=== PATIENT | male | born 1950 | race Caucasian/White ===

== ENCOUNTER → 2023-07-15 07:05 | Outpatient (REF) | payer MEDICARE, SELFPAY ==
[2023-07-15] MEDS: LEXISCAN 0.400000000000000022 MG IV (09:25)
== END ==
LOC: RCS 07:05
PROVIDERS: ATTENDING PHYSICIAN Internal Medicine Cardiovascular Disease; FAMILY PHYSICIAN Student in an Organized Health Care Education/Training Program
DX: R06.02 Shortness of breath (principal)
CPT/HCPCS: 78452; 93017; A9500; J2785

== ENCOUNTER → 2023-07-17 14:37 | Outpatient (REF) | payer MEDICARE, SELFPAY | LOC: HWRCS 14:37 | PROVIDERS: ATTENDING PHYSICIAN Internal Medicine Cardiovascular Disease; FAMILY PHYSICIAN Student in an Organized Health Care Education/Training Program | DX: R07.9 Chest pain, unspecified (principal) | CPT/HCPCS: 93306 ==

== ENCOUNTER 2023-07-22 22:21 | Inpatient (IN) | payer MEDICARE, SELFPAY ==
[2023-07-22] VITALS (8 sets, daily range): BP systolic 96–109; BP diastolic 50–87; BMI 29.7; BMI 29.4
[2023-07-22 18:50] LABS: % Basophils 0.4 % (0-2); % Eosinophils 0.4 % (0-6); % Immature Granulocytes 0.1 % (0-0.5); % Lymphocytes 5.2 % (20.5-51.1); % Monocytes 8.9 % (1.7-9.3); Absolute Lymphocytes 0.4 10^3/uL (1.2-3.4); Absolute Monocytes 0.6 10^3/uL (0.1-0.6); Absolute Neutrophils 5.8 10^3/uL (1.4-6.5); Hematocrit 35.7 % (39.0-52.0); Hemoglobin 12.7 g/dL (13.0-18.0); Mean Corp Hgb Conc. 35.6 g/dL (33.0-37.0); Mean Corpuscular Hgb 31.6 pg (27.0-31.0); Mean Corpuscular Volume 88.8 fL (80.0-94.0); Mean Platelet Volume 11.2 fL (7.4-10.4); Nucleated Red Blood Cells % 0 % (-); Platelet Count 187 10^3/uL (130-400); Red Blood Cell Count 4.02 10^6/uL (4.70-6.10); Red Cell Dist. Width 13.6 % (11.5-14.5); White Blood Cell Count 6.9 10^3/uL (4.8-10.8)
[2023-07-22 19:06] LABS: ALT (SGPT) 33 U/L (0-50); AST (SGOT) 45 U/L (17-59); Albumin 3.7 g/dl (3.5-5.0); Alkaline Phosphatase 49 U/L (38-126); Blood Urea Nitrogen 30 mg/dl (9-20); COVID-19 Antigen Negative (Negative); Calcium 8.6 mg/dl (8.4-10.2); Carbon Dioxide 25 mmol/L (22-30); Chloride 103 mmol/L (98-107); Estimated Creatinine Clearance 46 ml/min; Glucose 230 mg/dl (70-99); Potassium 3.8 mmol/L (3.5-5.1); Sodium 134 mmol/L (135-145); Total Bilirubin 0.8 mg/dl (0.2-1.3); eGFR 48.85
[2023-07-22 19:08] LABS: Lactic Acid 2.3 mmol/L (0.7-2.0)
[2023-07-22 19:16] LABS: Troponin I 0.157 ng/ml
[2023-07-22] MEDS: NSS 500 IV (19:50)
--- NOTE | 2023-07-22 19:56 | PHANOTE ---
07/22/2023, med rec tech, spoke to pt. to obtain their med. history; pt. states to grow his own marijuana and will smoke the flower form ('half a joint') HSPRN for sleep/anxiety/stress but he does not have a medical marijuana card.
--- NOTE | 2023-07-22 19:56 | ED.GENMED ---
History of Present Illness
General
Chief Complaint: Breathing Problem
Source: patient
Exam Limitations: none
Time Seen by Provider: 07/22/23 18:27
Nursing documentation reviewed up to this point in time: agreed with
Travel History
Have you had any contact with someone who has COVID-19?: No
Do you have any symptoms of coronavirus? Fever > 100 degrees, chills, cough, shortness of breath, sore throat, loss of taste or smell, muscle aches, or headache?: No
History of Present Illness
History of Present Illness:
Patient presents to ED secondary to persistent cough, fever, chills, body ache, shortness of breath, and decreased appetite over the past 4 to 5 days. Patient states that there are multiple for members currently with similar symptoms. Denies chest
pain. Denies abdominal pain. Denies vomiting or diarrhea. Patient reports lightheadedness intermittently. Per paramedics, patient was found to be hypoxic in respiratory distress with initial pulse ox 85%. Patient was placed on supplemental
oxygen on the way to the hospital.
Past History
Past History
ED Past Medical History: CAD, HTN, NIDDM and Valvular disease
ED Past Surgical History: Cardiac ([place] valve replacement, CABG)
Social History
Tobacco: Non-smoker
Alcohol: Occasional
Drug: None
Employment: Employed
Family History
Family History: Other (Father with COPD, mother with dementia)
Review of Systems
Review of Systems
Allergies reviewed?: Yes
All Other Systems: ROS reviewed and negative except as documented in HPI and ROS
Constitutional: Reports fever and chills
EENT: Reports no symptoms
Respiratory: Reports cough and trouble breathing
Cardiac: Reports no symptoms
ABD/GI: Reports no symptoms
: Reports no symptoms
Musculoskeletal: Reports no symptoms
Neurological: Reports dizzy and weakness; Denies headache
Phy Exam
Physical Exam
Physical Exam:
Physical Exam
General: mild distress, not acutely ill. afebrile
Head: nc/at. eomi
Neck: supple. normal range of motion.
Heart: s1/s2 regular rate and rhythm, no murmur. equal radial pulses.
Lungs: mild respiratory distress. diminished breath sounds bilaterally
Abdomen: normal bowel sounds. not tender.
Neuro: alert and oriented. no focal neurological deficits
Skin: no rash
Psychiatric: well kept. interactive and cooperative
Extremities: no edema. no calf tenderness.
Scores
Heart Failure Risk
Heart Failure Risk Score: Not Applicable
Course
Orders/Labs/Results
Orders:
Orders
07/22/23 18:30
Electrocardiogram (*1) Urgent
Reason for Study: Shortness of Breath
07/22/23 18:31
EKG- Treatment ONCE
07/22/23 18:34
CXR2 [CR Chest - 2 Views ] Urgent
Comment:
Reason For Exam: sob
07/22/23 18:36
COVID-19 Antigen Urgent
Source: Nasal Swab
Complete Blood Count/With Diff Urgent
Comprehensive Metabolic Panel Urgent
Lactate Level [Lactic Acid] Urgent
Troponin I Urgent
Blood Culture Urgent
WINTER Source: Blood/Venous
Specimen Description:
07/22/23 18:39
Influenza A+B Rapid Molecular Urgent
WINTER Source: Nasal Swab
Specimen Description:
07/22/23 19:14
0.9% Sodium Chloride 500 ml [Nss] 500 ml IV BOLUS
07/22/23 21:43
Admit/Transfer Patient As Directed
Co-Sign Provider:
Level of Care: Inpatient admission
Assign to:: Telemetry
Physician / Group: Gabriela Soto
Diagnosis: influena, elevated troponion
Reason for Telemetry: Chest Pain syndromes
Date to Stop Telemetry: 07/24/23
Time to Stop Telemetry: 11:00
Reason for Hospitalization: influena, elevated troponion
Expected length of stay greater than two midnights?: Yes
ELOS- Estimated Length of Stay in days: 3
I certify the patient meets the requirements for IP care: Yes
Ipratropium/Albuterol Sulfate [Duoneb] 3 ml INH R NOW ONE
07/22/23 21:45
Code Status As Directed
Resuscitation Status: Full Code
07/22/23 21:46
Oseltamivir Phosphate [Tamiflu] 30 mg PO NOW STA
07/22/23 22:13
INR [Prothrombin Time] Urgent
Procalcitonin Urgent
PCT Algorithmm Indication: Respiratory
07/24/23 11:00
DC Protocol for Telemetry ONCE
Abnormal Lab Results
07/22/23
18:36
RBC 4.02 L 10^6/uL
(4.70-6.10)
Hgb 12.7 L g/dL
(13.0-18.0)
Hct 35.7 L %
(39.0-52.0)
MCH 31.6 H pg
(27.0-31.0)
MPV 11.2 H fL
(7.4-10.4)
Absolute Lymphs (auto) 0.4 L 10^3/uL
(1.2-3.4)
Neutrophils % 85.0 H %
(42.2-75.2)
Lymphocytes % 5.2 L %
(20.5-51.1)
Sodium 134 L mmol/L
(135-145)
BUN 30 H mg/dl
(9-20)
Creatinine 1.5 H mg/dL
(0.7-1.3)
Glucose 230 H mg/dl
(70-99)
Lactic Acid 2.3 H mmol/L
(0.7-2.0)
Troponin I 0.157 H* ng/ml
Total Protein 6.0 L g/dl
(6.3-8.2)
07/22/23 18:36
07/22/23 18:36
Vital Signs
Initial and Last Documented VS:
Initial Vital Signs
Temp Pulse Resp Pulse Ox
99.6 F 93 20 95
07/22/23 18:21 07/22/23 18:21 07/22/23 18:21 07/22/23 18:21
Last Documented Vital Signs
Temp Pulse Resp BP Pulse Ox
99.6 F 81 18 104/87 90
07/22/23 18:21 07/22/23 22:00 07/22/23 22:00 07/22/23 22:00 07/22/23 22:00
MDM/Problems Addressed
MDM/Problems Addressed:
Patient's presenting symptoms, including hypoxia and dehydration, likely secondary to influenza. As patient is requiring supplemental oxygen to maintain his pulse ox greater than 90%, patient will be admitted for further eval and treatment.
CXR report reviewed - likely viral pneumonia. Awaiting procalcitonin. Will withhold abx at this time.
Blood cx pending
*EKG
Interpreted by ED Provider?: Yes
EKG Intrepretation Date: 07/22/23
Heart Rate: 92
Rate: normal
Rhythm: sinus
Cameron: normal axis
QRS Pattern: left bundle branch block
*Critical Care Note
Total Time (30-74mins, 75-104mins- exclusive of procedures): Not Applicable
ED Attending Note
-
Portions of this chart may have been created with voice recognition software.� Occasional wrong word or��sound alike� substitutions may have occurred due to the inherent limitations of voice recognition software.
Discharge Plan
Departure
Patient Disposition: Admit
Date of Disposition: 07/22/23
Time of Disposition: 20:09
Presentation/result/management discussed w/ accepting MD/DO: Hospitalist
Covid-19: Negative COVID-19
Discharge Problem:
Influenza, Hypoxia, Dehydration
Interventions
Interventions:
*Risk Screen - Suicide Last Done: 07/22/23 18:21
*General Assessment Last Done: 07/22/23 18:21
*Neglect/Abuse Screening Last Done: 07/22/23 18:21
*ED COVID-19 Vaccine History Last Done: 07/22/23 18:21
ED- Cardiac Assessment Last Done: 07/22/23 18:44
ED- Pulmonary Assessment Last Done: 07/22/23 18:44
--- NOTE | 2023-07-22 21:13 | HPS.HSE ---
Addendum entered and electronically signed by Gabriela Soto MD 07/23/23 02:43:
patient with rising Troponin up to 16.2. He recently had a positive stress test - results below and plan was to follow up at [place]. Cannot currently start heparin given elevated INR. He is on aspirin. EKG with known left bundle.
Keep NPO
Cardiology consulted
trend INR
patient currently sleeping and chest pain free
CONCLUSION:
1. Lexiscan nuclear stress test reveals a large in size,
moderate in severity, partially reversible mid to distal
anterior, distal anteroseptal and apical perfusion
defect.� There is also a moderate in size, moderate in
severity basal to distal inferoseptal and inferior
perfusion defect.
2. The left ventricle is dilated with global hypokinesis and
moderate distal anteroseptal hypokinesis.
3. LVEF by gated SPECT 44%.
4. Overall, high risk stress test.
Original Note:
Family Physician
-
Family Physician: Asim Cr,
Chief Complaint
-
shortness of breath
History of Present Illness
Mr. Arden Garzon is a 72 yo man with hx aortic valve replacement x 3 (most recent in 2020 at [place]), atrial fibrillation/flutter on coumadin, HTN, CVA 2020, CAD s/p CABG 2017, HTN, IDDM who presents to the ER with cough, fever/chills and body aches
x 1-2 days. Today he felt chills and increasingly SOB, EMS was called and he was found to have initial pulse ox 85% and was placed on supplemental oxygen on way to hospital.
Patient lives with granddaughter and states entire family has had URI symptoms. He felt fatigue over the weekend but developed productive cough and shortness of breath yesterday. + chills today. He has had decreased appetite. No
nausea/vomiting/diarrhea. No LE swelling. He weighs himself every day and has not gained weight.
Medical History
Past Medical History
Past Medical History: Reports CAD, CVA, HTN, IDDM and Valvular Disease
Additional Past Medical History:
aortic valve replacement x 3, most recent in 2020 at [place], atrial fibrillation/flutter on coumadin, HTN, CVA 2020, CAD s/p CABG 2018, HTN, IDDMI, diverticulitis
Past Surgical History: Reports Cardiac
Additional Past Surgical History:
CABG, aortic valve replacement x 3
Social History
Tobacco: Non-smoker
Alcohol: Occasional (reports prior heavy drinking a few years ago )
Drug: Marijuana (daily )
Family History
Family History: Not pertinent
Allergies / Home Medications
Allergies reflects when Allergies were last updated in [facility].
Home Medications with original date entered in [facility]
Allergy/Medication List:
Allergies
Allergy/AdvReac Type Severity Reaction Status Date / Time
No Known Allergies Allergy Verified 07/08/22 11:29
Home Medications
furosemide 20 mg tablet 20 mg PO DAILY Fluid retention/Swelling 07/03/20
cetirizine 10 mg tablet (Zyrtec) 10 mg PO DAILY Allergies 12/28/20
fenofibrate nanocrystallized 145 mg tablet 145 mg PO DAILY High cholesterol 12/28/20
fluoxetine 20 mg capsule 20 mg PO DAILY Depression 06/29/22
albuterol sulfate 90 mcg/actuation aerosol inhaler 2 puff inhalation R Q4HPRN PRN SOB 07/08/22
furosemide 40 mg tablet 40 mg PO DAILY 07/08/22
insulin lispro 100 unit/mL subcutaneous pen (Humalog KwikPen (U-100) Insulin) 0 sliding scale dose SC DIRECTED 07/08/22
insulin lispro 100 unit/mL subcutaneous pen (Humalog KwikPen (U-100) Insulin) 10 unit SC DAILY 07/08/22
aspirin 81 mg tablet,delayed release 81 mg PO DAILY 07/22/23
atorvastatin 80 mg tablet 80 mg PO DAILY 07/22/23
fluoxetine 40 mg capsule 40 mg PO DAILY 07/22/23
ibuprofen 200 mg capsule (Advil Liqui-Gel) 200 mg PO BIDPRN PRN mild pain 07/22/23
insulin glargine 100 unit/mL (3 mL) subcutaneous pen (Lantus Solostar U-100 Insulin) 15 unit SC HS 07/22/23
magnesium citrate 125 mg capsule 250 mg PO Q48H@0800 07/22/23
metoprolol succinate 25 mg tablet,extended release 24 hr 25 mg PO DAILY 07/22/23
sennosides 8.6 mg tablet (Senokot) 17.2 mg PO DAILY 07/22/23
warfarin 1 mg tablet 1 mg PO DAILY 07/22/23
warfarin 2 mg tablet 2 mg PO DAILY 07/22/23
Review of Systems
-
History Source: Patient
A 12 point ROS was completed and negative except as noted: Yes
Physical Exam
Vital Signs
Vital Signs
Temp Pulse Resp BP Pulse Ox
99.6 F 83 20 104/62 96
07/22/23 18:21 07/22/23 20:06 07/22/23 20:06 07/22/23 20:06 07/22/23 20:06
Physical Exam
General: No Apparent Distress
HEENT: PERRLA
Respiratory: Other (cough with deep inspiration and end expiratory wheeze)
Cardiac: S1/S2 and Regular Rhythm
GI: Soft and Non Tender
Musculoskeletal: No Edema
Skin: Warm and Dry; No Rash
Neuro: AO x 3
Psych: Calm
Laboratory Results
-
07/22/23 18:36
07/22/23 18:36
Laboratory Results
Lactic Acid 2.3 mmol/L (0.7-2.0) H 07/22/23 18:36
Total Bilirubin 0.8 mg/dl (0.2-1.3) 07/22/23 18:36
AST 45 U/L (17-59) 07/22/23 18:36
ALT 33 U/L (0-50) 07/22/23 18:36
Alkaline Phosphatase 49 U/L (38-126) 07/22/23 18:36
Troponin I 0.157 ng/ml H* 07/22/23 18:36
Data Reviewed
-
Diagnostic Radiology: Report Reviewed by me
Lab Data: Labs Reviewed by me
Impression/Plan
-
Mr. Arden Garzon is a 72 yo man with hx aortic valve replacement x 3 (most recent in 2020 at [place]), atrial fibrillation/flutter on coumadin, HTN, CVA 2020, CAD s/p CABG 2017, IDDM who presents to the ER with cough, fever/chills and body aches x
4-5 days. Today he felt increasingly SOB, EMS was called and he was found to have initial pulse ox 85% and was placed on supplemental oxygen on way to hospital.
Triage VS: T 99.9, P 93, RR 20, SpO2 95%
Labs: WBC 6.9, Hg 12.7, PLT 187, Na 134, K+ 3.8, BUN 30, Cr 1.5, glucose 230, lactate 2.3, Trop 0.157
CXR: right middle lobe PNA (my read)
MAR: 1L IVF
TTE 07/17/23
CONCLUSIONS
�Normal left ventricular chamber size with normal left ventricular systolic
�function; left ventricular ejection fraction is 55-60% by modified Pimentel's
�method. Abnormal (paradoxical) septal motion consistent with left bundle branch
�block. Mild concentric left ventricular hypertrophy.� Stage I diastolic
�dysfunction suggestive of abnormal relaxation.
�Thickened mitral valve leaflets with mitral annular calcification and moderate
�mitral regurgitation.
�Moderately dilated left atrium.
�Well-seated bioprosthetic aortic valve replacement with restricted leaflet
�motion. Peak and mean gradients are 63 and 39 mmHg, respectively. There is
�likely at least moderate bioprosthetic dysfunction. Mild aortic regurgitation.
�Since echocardiogram 06/30/2022 which was reviewed there is now at least
�moderate bioprosthetic aortic valve dysfunction.� Mean pressure is increased
�from 7 mmHg to 39 mmHg.
�
�Indications:
�Shortness of breath, Aortic valve replacement, Chest pain, unspecified,
�Atherosclerotic heart disease of [place] coronary artery without angina pectoris
Influenza
Elevated Lactate
Shortness of breath
-patient required O2 when seen by EMS; currently weaned off and sat'ing in mid-'s. He does not appear volume overloaded; RML PNA seen on my read CXR (superimposed bacterial?)
-obtain procal
-admit to telemetry
-monitor O2 sats
-start Tamiflu (renally adjusted)
-gentle IVF overnight
-standing duonebs
Non-NV Troponin Elevation
-patient denies chest pain (only discomfort with coughing). He had TTE last week and aortic gradients have increased
-trend Troponin overnight
-continue QUILL WINDER aspirin
-cardiology consult if climbs
CKD stage III
-creatinine seems to be at baseline, 1.5
-CTM
HFpEF
Moderate MR
hx Aortic valve replacement x 3 (last at [facility] 2020); recent echo with moderate bioprosthetic dysfunction with mean pressure 39mmHg
-EF 55-60% 07/17/23 with valve abnormalities as stated above
-on lasix 60mg PO QD
-hold QUILL WINDER lasix in setting of infection and decreased PO intake
-gentle IVF as listed above
-close eye on volume status
Paroxysmal atrial fibrillation/aflutter
-continue QUILL WINDER metoprolol, coumadin
Essential Hypertension
-QUILL WINDER metoprolol
CVA 2020
Coronary artery disease s/p CABG 2017
-QUILL WINDER asprin/statin/metoprolol
IDDM
Hyperglycemia
-continue QUILL WINDER lantus at lower dosing given decreased PO intake
-ISS low
-diabetic diet
DVT PPx coumadin
FULL CODE
[2023-07-22 22:33] LABS: INR 3.28; PT 33.3 Sec (11.4-14.6)
[2023-07-22 22:49] LABS: Procalcitonin 0.47 ng/ml (0.0-0.25)
[2023-07-22 23:17] LABS: Glucose - Point of Care 152 mg/dl (70-99)
[2023-07-22] MEDS: STERILE WATER FOR INJECTION 10 ML IV (23:21)
[2023-07-22] MEDS: NSS 1000 IV (23:21)
[2023-07-22] MEDS: VIBRAMYCIN 100 MG PO (23:21)
[2023-07-22] MEDS: ROCEPHIN 1000 MG IV (23:21)
[2023-07-22] MEDS: TAMIFLU 30 MG PO (23:21)
[2023-07-22] MEDS: MUCINEX 600 MG PO (23:21)
[2023-07-22] MEDS: LANTUS 0.0800000000000000017 UNITS SC (23:22)
[2023-07-22] MEDS: ROBITUSSIN AC 10 ML PO (23:23)
--- NOTE | 2023-07-22 23:30 | PTCARENOTE ---
Pt admit from ED via stretcher. Ambulated into room without difficulty. Room air sat 95%. Left on room air. Pt states feeling much better than when he came in. Place on monitor NSR with BBB. Assessment as charted.
[2023-07-23] MEDS: TYLENOL 650 MG PO ×3 (02:08→15:52)
[2023-07-23] MEDS: LOW STRENGTH ASPIRIN 162 MG PO (02:55)
[2023-07-23 03:00] VITALS: BP 106/62
[2023-07-23] MEDS: MELATONIN 3 MG PO ×2 (03:07→21:43)
--- NOTE | 2023-07-23 03:19 | PTCARENOTE ---
Repeat troponin significantly more elevated. [facility] notified. EKG done. Dr. Soto reviewed labs/tests and called pt on phone to discuss findings. Pt made NPO after ASA 162mg given and melatonin given. Pt only c/o chest discomfort with cough.
Will continue to monitor.
[2023-07-23 06:28] LABS: % Basophils 0.4 % (0-2); % Eosinophils 0.1 % (0-6); % Immature Granulocytes 0.3 % (0-0.5); % Monocytes 11.7 % (1.7-9.3); % Neutrophils 79.5 % (42.2-75.2); Absolute Lymphocytes 0.6 10^3/uL (1.2-3.4); Absolute Monocytes 0.9 10^3/uL (0.1-0.6); Absolute Neutrophils 6.1 10^3/uL (1.4-6.5); Hematocrit 31.2 % (39.0-52.0); Hemoglobin 10.9 g/dL (13.0-18.0); Mean Corp Hgb Conc. 34.9 g/dL (33.0-37.0); Mean Corpuscular Volume 91.5 fL (80.0-94.0); Nucleated Red Blood Cells % 0 % (-); Platelet Count 137 10^3/uL (130-400); Red Blood Cell Count 3.41 10^6/uL (4.70-6.10); Red Cell Dist. Width 13.6 % (11.5-14.5); White Blood Cell Count 7.6 10^3/uL (4.8-10.8)
[2023-07-23 06:29] LABS: INR 3.13; PT 32.2 Sec (11.4-14.6)
[2023-07-23 06:55] LABS: Blood Urea Nitrogen 27 mg/dl (9-20); Calcium 7.8 mg/dl (8.4-10.2); Carbon Dioxide 27 mmol/L (22-30); Chloride 105 mmol/L (98-107); Estimated Creatinine Clearance 47 ml/min; Glucose 151 mg/dl (70-99); Magnesium 1.9 mg/dl (1.6-2.3); Potassium 3.9 mmol/L (3.5-5.1); Sodium 134 mmol/L (135-145); eGFR 58.01
[2023-07-23 07:10] VITALS: BP 112/62
[2023-07-23 07:52] LABS: Glucose - Point of Care 154 mg/dl (70-99)
[2023-07-23] MEDS: DUONEB 3 ML INH ×4 (07:56→19:15)
[2023-07-23] MEDS: TOPROL XL 25 MG PO (08:10)
[2023-07-23] MEDS: TRICOR 145 MG PO (08:10)
[2023-07-23] MEDS: LIPITOR 80 MG PO (08:10)
[2023-07-23] MEDS: PROZAC 60 MG PO (08:11)
[2023-07-23] MEDS: MUCINEX 600 MG PO ×2 (08:11→20:32)
[2023-07-23] MEDS: ZYRTEC 10 MG PO (08:11)
[2023-07-23] MEDS: SENOKOT 17.1999999999999993 MG PO (08:11)
[2023-07-23] MEDS: VIBRAMYCIN 100 MG PO ×2 (08:11→20:32)
[2023-07-23] MEDS: NOVOLOG FLEXPEN-LOW RESISTANCE SC ×2 (08:12→18:07)
[2023-07-23] MEDS: TAMIFLU 30 MG PO ×2 (08:17→20:32)
--- NOTE | 2023-07-23 08:27 | CON.CAR ---
Addendum entered and electronically signed by Kurt Pham MD 07/23/23 12:11:
Patient seen, interviewed and examined by me.
Well-appearing, no acute distress
Regular rate and rhythm with normal S1 and S2, no S3 no S4. There is a grade 1/6 apical holosystolic murmur and no rubs. PMI is normally placed.
Well-healed sternotomy, pacemaker generator site is right upper chest with wound that is well-healed
Lungs are clear to auscultation bilaterally without wheezes rales or rhonchi.
Abdomen soft nontender nondistended with normoactive bowel sounds
Extremities show trace pretibial edema bilaterally no clubbing or cyanosis.
Neurologic exam is grossly nonfocal.
Agree with advanced practice professionals assessment and plan as noted below.
Acute non-ST segment elevation myocardial infarction with rising troponin and new wall motion abnormality on echocardiogram (echocardiogram today finds new anterior apical akinesis compared to echocardiogram from last week). He is having no chest
pain (other than the chronic chest pain he has when he coughs related to his multiple sternotomies).
-Oxygen to treat hypoxia related to his influenza pneumonia and reduce metabolic demand
-Management of fever to reduce metabolic drive
-Change Toprol-XL to metoprolol 25 mg every 6 hours with hold parameters
-Initiate low-dose IV heparin. He is on warfarin with INR of 3.2 but we are holding warfarin. Follow closely for any signs of bleeding.
-When he is improved from his influenza pneumonia there can be consideration for coronary angiography. If he becomes unstable from a cardiac standpoint we could consider more urgent coronary angiography.
-I did interrogate the Medtronic dual-chamber permanent pacemaker and reprogramed from MVPR to DDDR with shortening of the AV intervals to promote cardiac resynchronization pacing (the RV pacing lead is a cardiac resynchronization lead, left bundle
branch conduction system pacing)
-Trend troponin
Original Note:
Consultation
Consultation Request
Date/Time Consultation Requested: 07/23/23 at 0241
Date/Time Consultation Performed: 07/23/23 at 0730
Requesting Provider: Dr. Chery
Performing Provider: Dr. Kurt Pham
Reason for Consultation: Elevated Troponin, influenza
Medical History
-
History of Present Illness:
Patient came to [facility] yesterday with SOB and hypoxia, he is now admitted with influenza and cardiology is consulted for NSTEMI. Patient lives with his daughter and grandchildren and everyone in the home was sick with URI symptoms, but he had
progressive SOB and called 911 yesterday and when paramedics arrived he was hypoxic with an initial pulse ox 89% on RA. Patient was started on oxygen in [facility] and tested positive for influenza. He had WHIT with Cre up to 1.5 on admission, but
improving with IVFs overnight. His outpatient dose of Lasix is on hold as well. Patient complains of chest pain with cough and ECG with LBBB that appears to be overall newer since about 01/2023. Initial Troponin was 0.157 and is up to 34.9 this
morning. Chest pain only with cough. He reports breathing is better. He was started on Tamiflu.
PMH:
Aortic stenosis
s/p aortic root homograft at [facility] with Dr. Fuentes 1998
s/p redo sternotomy with aortic root reconstruction, tissue AVR and left main coronary reconstruction at [facility] 2008
s/p TAVR with prosthetic mismatch at 07/01/18
s/p redo sternotomy with tissue AVR due to TAVR prosthetic mismatch and stenosis, s/p SVG to LAD by Dr. Mcginnis at [place] 01/07/21
CAD
s/p LM coronary reconstruction at time of aortic root reconstruction and tiss AVR 2008
s/p 3 mm Promus LEONCIO to LAD 05/2018
PLASTER MOLD MAKER RCA and new high-grade mid LAD stenosis beyond stented segment by cath 12/2020
LAD disease managed by SVG to LAD CABG at time of redo sternotomy and AVR at [place] 01/07/21
Paroxysmal typical Aflutter, s/p CV Jan 2020
Chronic warfarin OAC
h/o CVA with left MCA infarct 01/11/21
previously taking Xarelto prior to redo sternotomy and tiss AVR at [place] 01/07/21, then CVA 01/11/21 and seen by Neurosurgery at [place] and they recommended warfarin
Hypertension
DM2
CKD 3a
Depression
Former smoker
Former alcohol abuse
Past Medical History
Past Medical History: Other (in HPI)
Past Surgical History: Other (aortic homograft at [facility] 1998, tissue AVR and LM coronary reconstruction at [facility] 2008, LAD stent 2018)
Social History
Tobacco: Smoker
Alcohol: Occasional
Drug: Marijuana
Living: With Family
Employment: Retired
Family History
Family History: Cancer and Other (a daughter of drug overdose)
Allergies / Home Medications
Allergy/AdvReac Type Severity Reaction Status Date / Time
No Known Allergies Allergy Verified 07/08/22 11:29
Medication Instructions Recorded Confirmed Type
furosemide 20 mg tablet 20 mg PO DAILY Fluid 07/03/20 07/22/23 History
retention/Swelling
cetirizine 10 mg tablet (Zyrtec) 10 mg PO DAILY Allergies 12/28/20 07/22/23 History
fenofibrate nanocrystallized 145 145 mg PO DAILY High cholesterol 12/28/20 07/22/23 History
mg tablet
fluoxetine 20 mg capsule 20 mg PO DAILY Depression 06/29/22 07/22/23 History
albuterol sulfate 90 mcg/actuation 2 puff inhalation R Q4HPRN PRN SOB 07/08/22 07/22/23 History
aerosol inhaler
furosemide 40 mg tablet 40 mg PO DAILY 07/08/22 07/22/23 History
insulin lispro 100 unit/mL 0 sliding scale dose SC DIRECTED 07/08/22 07/22/23 History
subcutaneous pen (Humalog KwikPen
(U-100) Insulin)
insulin lispro 100 unit/mL 10 unit SC DAILY 07/08/22 07/22/23 History
subcutaneous pen (Humalog KwikPen
(U-100) Insulin)
aspirin 81 mg tablet,delayed 81 mg PO DAILY 07/22/23 07/22/23 History
release
atorvastatin 80 mg tablet 80 mg PO DAILY 07/22/23 07/22/23 History
fluoxetine 40 mg capsule 40 mg PO DAILY 07/22/23 07/22/23 History
ibuprofen 200 mg capsule (Advil 200 mg PO BIDPRN PRN mild pain 07/22/23 07/22/23 History
Liqui-Gel)
insulin glargine 100 unit/mL (3 15 unit SC HS 07/22/23 07/22/23 History
mL) subcutaneous pen (Lantus
Solostar U-100 Insulin)
magnesium citrate 125 mg capsule 250 mg PO Q48H@0800 07/22/23 07/22/23 History
metoprolol succinate 25 mg 25 mg PO DAILY 07/22/23 07/22/23 History
tablet,extended release 24 hr
sennosides 8.6 mg tablet (Senokot) 17.2 mg PO DAILY 07/22/23 07/22/23 History
warfarin 1 mg tablet 1 mg PO DAILY 07/22/23 07/22/23 History
warfarin 2 mg tablet 2 mg PO DAILY 07/22/23 07/22/23 History
Review of Systems
-
History Source: Patient
All other systems: Negative unless noted
Physical Exam
Vital Signs
Temp Pulse Resp BP Pulse Ox
100.9 F H 77 18 106/62 94
07/23/23 03:00 07/23/23 07:59 07/23/23 07:59 07/23/23 03:00 07/23/23 07:59
GEN: NAD. AAO x3
HEENT: EOMI, MMM
LUNGS: +Productive cough with clear phlegm. Decreased BS throughout without wheeze or rales
CV: Reg, S1/S2, 3/6 syst LSB
ABD: +BS, ND, NT, soft
EXT: No clubbing, cyanosis, lesions or edema B/L
NEURO: Gross non-focal
SKIN: Warm, dry and pink. No rash
Lab Results
07/23/23 05:54
07/23/23 05:54
Troponin I 34.900 ng/ml H* D 07/23/23 05:54
Impression / Plan
-
PCP: Dr. Tammie Barrios
Cardiology: Dr. Brenner
Impression:
Acute hypoxemic respiratory insufficiency
NSTEMI, Troponin 35 and trending
Influenza positive 07/22/23
Aortic stenosis
s/p aortic root homograft at [facility] with Dr. Fuentes 1998
s/p redo sternotomy with aortic root reconstruction, tissue AVR and left main coronary reconstruction at [facility] 2008
s/p TAVR with prosthetic mismatch at 07/01/18
s/p redo sternotomy with tissue AVR due to TAVR prosthetic mismatch and stenosis, s/p SVG to LAD by Dr. Mcginnis at [place] 01/07/21
CAD
s/p LM coronary reconstruction at time of aortic root reconstruction and tiss AVR 2008
s/p 3 mm Promus LEONCIO to LAD 05/2018
PLASTER MOLD MAKER RCA and new high-grade mid LAD stenosis beyond stented segment by cath 12/2020
LAD disease managed by SVG to LAD CABG at time of redo sternotomy and AVR at [place] 01/07/21
NSTEMI 07/22/23
Paroxysmal typical Aflutter, s/p CV Jan 2020
Chronic warfarin OAC
h/o CVA with left MCA infarct 01/11/21
previously taking Xarelto prior to redo sternotomy and tiss AVR at [place] 01/07/21, then CVA 01/11/21 and seen by Neurosurgery at [place] and they recommended warfarin
Hypertension
DM2
WHIT on CKD 3a
Depression
Former smoker
Former alcohol abuse
ECHO 12/06/2020: Function; EF 55 to 60%.� Moderate LVH.� Stage II diastolic dysfunction.� Normal RV size and function.� Mildly dilated RA.� Noted status post sapient #3 prosthetic valve with severe AAS.� Peak/mean gradients 113/66 mmHg. mild TR.� PAP
33 mmHg
Echo 07/17/23: EF 55-60%, stage I diastolic dysfunction, mod MR, well-seated bioprosthetic aortic valve replacement with restricted leaflet motion peak and mean gradients are 63 and 39 mmHg at least moderate bioprosthetic dysfunction, mild AR
Plan:
-Patient came to [facility] yesterday with SOB and hypoxia, he is now admitted with influenza and cardiology is consulted for NSTEMI. Patient lives with his daughter and grandchildren and everyone in the home was sick with URI symptoms, but he had
progressive SOB and called 911 yesterday and when paramedics arrived he was hypoxic with an initial pulse ox 89% on RA. Patient was started on oxygen in [facility] and tested positive for influenza. He had WHIT with Cre up to 1.5 on admission, but
improving with IVFs overnight. His outpatient dose of Lasix is on hold as well. Patient complains of chest pain with cough and ECG with LBBB that appears to be overall newer since about 01/2023. Initial Troponin was 0.157 and is up to 34.9 this
morning. Chest pain only with cough. He reports breathing is better. He was started on Tamiflu.
-Troponin up to 34.9 on 07/23/23 AM. Will trend to peak.
-Check echo. EF was preserved at 55-60% without WMA by echo 07/17/23.
-Chest pain with cough. No resting or sustained chest pain otherwise. Will start Heparin gtt at lower protocol and hold warfarin.
-ECG reviewed by me with LBBB that has been present since 01/2023.
-Recent outpatient stress test suggested anterior ischemia. Will plan on a diagnostic [facility] this admission.
-Echo from 07/17/23 suggested recurrence of at least moderate bioprosthetic AVR dysfunction with peak/mean 63/39. As noted above the patient has an extensive h/o aortic valve disease and is on his 4th AVR with 3 previous sternotomies and a previous
TAVR with prosthetic valve mismatch.
-Patient is chronically on warfarin for h/o typical atrial flutter and a h/o CVA after AVR at [place] 01/2021. He was taking Xarelto prior to that surgery and seen by Neurosurgery at [place] after CVA and they recommended warfarin.
-INRs managed by [facility] using a home monitor with an INR goal of 2-3. INR 32.8 on 07/22/23 and down to 3.13 on 07/23/23 after holding warfarin.
-Change outpatient dose of Toprol Xl 25 mg daily to Lopressor 25 mg q 6 hours with NSTEMI.
-WHIT with Cre up to 1.5 on admission. Outpatient dose of Lasix 60 mg PO daily has been on hold since admission. Patient has received 1.5 L IVFs thus far. Eventually restart Lasix.
--- NOTE | 2023-07-23 10:35 | W.PN.HOSP.TC ---
Today's Communication/Plan
-
see A/P
Assessment / Plan
Assessment / Plan
72 yo man with PMH aortic valve replacement x 3 (most recent in 2020 at [place]), atrial fibrillation/flutter on Coumadin, HTN, CVA 2020, CAD s/p CABG 2017, HTN, IDDM who presented to the ER with cough, fever/chills and body aches x 1-2 days.�
He felt increasingly SOB, hence EMS was called and he was found to have initial pulse ox 85% and was placed on supplemental oxygen on the way to hospital.�
Patient lives with granddaughter and states entire family has had URI symptoms.�
A/P:
# Sepsis POA�due to Influenza and CAP
# Acute hypoxic respiratory insufficiency, resolved
# Resolved mild lactate acidosis from admission
weaned back to RA
Flu A positive, Cont Tamiflu (renally adjusted) x 5 days
CXR with Bilateral patchy pneumonia.
Procal elevated at 0.47
Cont Ceftriaxone/doxycycline
standing duonebs
# Troponin Elevation due to NSTEMI
patient denies chest pain
TTE last week 07/17/23: ejection fraction is 55-60%, Stage I diastolic dysfunction, moderate bioprosthetic aortic valve dysfunction.�
Troponin trending upward, now at 34, cont to trend until peak.
Check updated echo.
continue NUCLEAR PROCESS ENGINEER aspirin
cardiology on board, plan for cardiac cath
# CKD stage III
creatinine at baseline
# Paroxysmal atrial fibrillation/aflutter
NUCLEAR PROCESS ENGINEER Toprol replaced with Lopressor
NUCLEAR PROCESS ENGINEER Coumadin replaced with heparin drip prior to cath
cardiology on board
# HFpEF
# Moderate MR
# hx Aortic valve replacement x 3 (last at [facility] 2020)
NUCLEAR PROCESS ENGINEER lasix 60mg PO QD
hold NUCLEAR PROCESS ENGINEER lasix in setting of infection and decreased PO intake
s/p gentle hydration
Monitor volume status
# Essential Hypertension
NUCLEAR PROCESS ENGINEER Toprol replaced with Lopressor
# CVA 2020
# Coronary artery disease s/p CABG 2017
NUCLEAR PROCESS ENGINEER asprin/statin/metoprolol
# IDDM
NUCLEAR PROCESS ENGINEER Lantus dose was decreased from 15 units HS to 8 units HS, hold for NPO status
Cover with ISS low
DVT PPx NUCLEAR PROCESS ENGINEER coumadin replaced with heparin drip
FULL CODE
DW cardiology team
Anticipated Discharge: > 48 hours
Subjective/Interval History
-
Date of Service: July 23, 2023
Objective Data
-
Labs:
Laboratory Results
07/22/23 07/23/23 07/23/23
22:13 05:54 10:29
WBC 7.6
Hgb 10.9 L
Hct 31.2 L
Plt Count 137 D
PT 33.3 H 32.2 H
INR 3.28 3.13
APTT Pending
Sodium 134 L
Potassium 3.9
Chloride 105
Carbon Dioxide 27
BUN 27 H
Creatinine 1.3
Glucose 151 H
Calcium 7.8 L
Vital Signs:
Vital Signs
Temp Pulse Resp BP Pulse Ox
37.3 C 77 18 112/62 94
07/23/23 07:10 07/23/23 07:59 07/23/23 07:59 07/23/23 07:10 07/23/23 07:59
I&O
07/22/23 07/23/23 07/24/23
06:59 06:59 06:59
Intake Total 840 / 840
Output Total 250 / 250
Balance 590 / 590
Review of Systems
-
Respiratory: Reports Trouble Breathing (improved)
Physical Exam
-
General: Well Developed, Well Nourished, No Apparent Distress, Comfortable and Conversant (speak in full sentences)
HEENT: Normocephalic, Atraumatic, Moist Mucous Membranes and Hearing Impaired; Negative Oxygen
Respiratory: Clear to Auscultation and Non Labored Respirations; Negative Wheezes, Crackles or Accessory Resp Muscle Use
Cardiac: Regular Rhythm and S1/S2
GI: Soft, Nontender, Nondistended and Normal Bowel Sounds
Musculoskeletal: No Clubbing, No Cyanosis and No Edema
Neuro: Awake, Alert, Oriented and No Motor Deficits
Psych: Calm and Intact Judgement/Insight
Data Reviewed
-
Diagnostic Radiology: Image personally visualized and interpreted and Report Reviewed by me
Labs: Labs Reviewed by me
[2023-07-23 11:10] VITALS: BP 118/57
[2023-07-23 11:24] LABS: APTT 57.1 Sec (23.4-35.0)
[2023-07-23 11:30] LABS: Glucose - Point of Care 154 mg/dl (70-99)
[2023-07-23] MEDS: HEPARIN 25000 UNITS/250 ML IV (11:40)
[2023-07-23] MEDS: NOVOLOG FLEXPEN-LOW RESISTANCE 1 UNITS SC (12:52)
[2023-07-23] MEDS: LOPRESSOR 25 MG PO ×3 (12:52→23:33)
[2023-07-23 15:00] VITALS: BP 105/60
--- NOTE | 2023-07-23 16:03 | CM ---
met with patient at bedside.patient lives with his ,daughter and 3 grandchildren in ranch home with 6-7 steps to enter.his bed and bath is on the first level.he ambulates I and is I with his adl's.his pcp is dr filippo santoyo and he uses [facility].patient with a hx of avr x3 and sp cabg is adm with influenza and elevated trops.he is on iv abx tamiflu. jake is planning a cardiac cath.alanna has [facility] heart [facility].he has never
been to ip rehab.plan is for patent to discharge home with no needs vs hcs.
Plan: patient will discharge home with no needs vs possible hcs.
[2023-07-23 16:20] LABS: Glucose - Point of Care 150 mg/dl (70-99)
[2023-07-23 18:28] LABS: APTT 165.6 Sec (23.4-35.0)
[2023-07-23 19:37] VITALS: BP 100/58
[2023-07-23 21:16] LABS: Glucose - Point of Care 160 mg/dl (70-99)
[2023-07-23] MEDS: ROBITUSSIN AC 10 ML PO (21:43)
[2023-07-23 23:10] VITALS: BP 95/55
[2023-07-23] MEDS: STERILE WATER FOR INJECTION 10 ML IV (23:34)
[2023-07-23] MEDS: ROCEPHIN 1000 MG IV (23:37)
[2023-07-24 01:31] LABS: PT 29.1 Sec (11.4-14.6)
[2023-07-24 01:33] LABS: APTT 125.7 Sec (23.4-35.0)
[2023-07-24 03:22] VITALS: BP 107/60
[2023-07-24] MEDS: LOPRESSOR 25 MG PO ×3 (05:11→18:07)
[2023-07-24 06:00] VITALS: BMI 29.4
[2023-07-24 07:18] LABS: Glucose - Point of Care 143 mg/dl (70-99)
[2023-07-24] MEDS: DUONEB 3 ML INH ×2 (07:30→12:07)
[2023-07-24 08:10] LABS: APTT 89.4 Sec (23.4-35.0)
[2023-07-24 08:22] VITALS: BP 109/61
[2023-07-24] MEDS: NOVOLOG FLEXPEN-LOW RESISTANCE SC ×3 (08:37→16:40)
[2023-07-24 09:05] LABS: Blood Urea Nitrogen 27 mg/dl (9-20); Calcium 8.2 mg/dl (8.4-10.2); Carbon Dioxide 22 mmol/L (22-30); Chloride 101 mmol/L (98-107); Estimated Creatinine Clearance 56 ml/min; Glucose 134 mg/dl (70-99); Potassium 3.9 mmol/L (3.5-5.1); Sodium 133 mmol/L (135-145); eGFR > 60.00
[2023-07-24] MEDS: ZYRTEC 10 MG PO (09:46)
[2023-07-24] MEDS: LIPITOR 80 MG PO (09:48)
[2023-07-24] MEDS: MUCINEX 600 MG PO ×2 (09:48→20:14)
[2023-07-24] MEDS: TAMIFLU 30 MG PO ×2 (09:48→20:14)
[2023-07-24] MEDS: VIBRAMYCIN 100 MG PO ×2 (09:48→20:13)
[2023-07-24] MEDS: ASPIR LOW (ENTERIC COATED) 81 MG PO (09:48)
[2023-07-24] MEDS: PROZAC 60 MG PO (09:48)
[2023-07-24] MEDS: SENOKOT 17.1999999999999993 MG PO (09:48)
[2023-07-24] MEDS: TRICOR 145 MG PO (09:49)
--- NOTE | 2023-07-24 09:54 | W.PN.CARDCBS ---
Addendum entered and electronically signed by Mateus Hansen MD 07/24/23 16:27:
I saw and examined the patient.
The Poured Concrete Wall Technician's note was reviewed and I agree with the note.
Comment:
GEN: No distress, awake, Ox3
HEENT: supple, anicteric, mmm
LUNGS: CTA, no wheezes/rales
CV: Reg, S1/S2, 1/6 syst LSB, no gallop
ABD: soft, BS+, NT/ND
EXT: No edema
NEURO: Gross non-focal
SKIN: No rash
Plan:
Continue treatment of influenza.
Plan for left heart cath on Thursday. Continue IV heparin.
Continue aspirin, metoprolol, atorvastatin.
Further management of aortic valve bioprosthetic stenosis will be determined after catheterization.
Original Note:
Today's Communication / Plan
-
Continue management of influenza per primary service
Continue heparin drip
Possibly for [facility] early next week
Impression / Plan
-
PCP: Dr. Tammie Barrios
Cardiology: Dr. Brenner
Impression:
Acute hypoxemic respiratory insufficiency
NSTEMI, peak troponin 39.3
Influenza positive 07/22/23
Aortic stenosis
s/p aortic root homograft at [facility] with Dr. Fuentes 1998
s/p redo sternotomy with aortic root reconstruction, tissue AVR and left main coronary reconstruction at [facility] 2008
s/p TAVR with prosthetic mismatch at 07/01/18
s/p redo sternotomy with tissue AVR due to TAVR prosthetic mismatch and stenosis, s/p SVG to LAD by Dr. Mcginnis at [place] 01/07/21
CAD
s/p LM coronary reconstruction at time of aortic root reconstruction and tiss AVR 2008
s/p 3 mm Promus LEONCIO to LAD 05/2018
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
LAD disease managed by SVG to LAD CABG at time of redo sternotomy and AVR at [place] 01/07/21
NSTEMI 07/22/23
Paroxysmal typical Aflutter, s/p CV Jan 2020
Chronic warfarin OAC
h/o CVA with left MCA infarct 01/11/21
previously taking Xarelto prior to redo sternotomy and tiss AVR at [place] 01/07/21, then CVA 01/11/21 and seen by Neurosurgery at [place] and they recommended warfarin
Hypertension
DM2
WHIT on CKD 3a
Depression
Former smoker
Former alcohol abuse
ECHO 12/06/2020: Function; EF 55 to 60%.� Moderate LVH.� Stage II diastolic dysfunction.� Normal RV size and function.� Mildly dilated RA.� Noted status post sapient #3 prosthetic valve with severe AAS.� Peak/mean gradients 113/66 mmHg. mild TR.� PAP
33 mmHg
Echo 07/17/23: EF 55-60%, stage I diastolic dysfunction, mod MR, well-seated bioprosthetic aortic valve replacement with restricted leaflet motion peak and mean gradients are 63 and 39 mmHg at least moderate bioprosthetic dysfunction, mild AR
Echo 07/23/2023: EF 48%, akinesis of the apical inferoseptal and anteroseptal wall, moderate MR, bioprosthetic aortic valve with peak/mean gradients 56/32 mmHg, mild to moderate TR, estimated PAP 35 to 40 mmHg
Plan:
-Presented with SOB and found to be influenza positive. Continue management with Tamiflu, nebs, abx per primary service.
-Also noted to have NSTEMI with peak troponin 39.3. Denies chest pain other than in the setting of coughing.
-Echo rechecked 07/23 and noted newly reduced EF with WMA.
-Recent outpatient stress test suggested anterior ischemia. Continue Heparin gtt while awaiting [facility] this admission, once recovered from influenza.
-Patient is chronically on warfarin for h/o typical atrial flutter and a h/o CVA after AVR at [place] 01/2021. He was taking Xarelto prior to that surgery and seen by Neurosurgery at [place] after CVA and they recommended warfarin.
-INRs managed by [facility] using a home monitor with an INR goal of 2-3. Warfarin on hold while on heparin.
-Continue lopressor 25mg Q6h. HR and BP stable.
-WHIT noted earlier in admission with creat as high as 1.5, trending back downwards and down to 1.1 on 07/24.
-Outpatient dose of Lasix 60 mg PO daily has been on hold since admission. Eventually restart Lasix.
-Patient still with low grade fever and cough although admits he is feeling better today.
-Continue lipitor and aspirin 81mg daily.
HPI: Patient came to [facility] yesterday with SOB and hypoxia, he is now admitted with influenza and cardiology is consulted for NSTEMI. Patient lives with his daughter and grandchildren and everyone in the home was sick with URI symptoms, but he had
progressive SOB and called 911 yesterday and when paramedics arrived he was hypoxic with an initial pulse ox 89% on RA. Patient was started on oxygen in [facility] and tested positive for influenza. He had WHIT with Cre up to 1.5 on admission, but
improving with IVFs overnight. His outpatient dose of Lasix is on hold as well. Patient complains of chest pain with cough and ECG with LBBB that appears to be overall newer since about 01/2023. Initial Troponin was 0.157 and is up to 34.9 this
morning. Chest pain only with cough. He reports breathing is better. He was started on Tamiflu.
Progress Note - Bulk Sugar Handler
Subjective
Date of Service: July 24, 2023
Feeling better today. Still with cough. No chest pain other than that which is associated with coughing.
Objective
Labs:
07/23/23 05:54
07/24/23 07:13
Labs
Hgb 10.9 g/dL (13.0-18.0) L 07/23/23 05:54
Hct 31.2 % (39.0-52.0) L 07/23/23 05:54
Plt Count 137 10^3/uL (130-400) D 07/23/23 05:54
PT Cancelled 07/24/23 06:00
INR Cancelled 07/24/23 06:00
APTT 89.4 Sec (23.4-35.0) H 07/24/23 07:13
Sodium 133 mmol/L (135-145) L 07/24/23 07:13
Potassium 3.9 mmol/L (3.5-5.1) 07/24/23 07:13
BUN 27 mg/dl (9-20) H 07/24/23 07:13
Creatinine 1.1 mg/dL (0.7-1.3) 07/24/23 07:13
Glucose 134 mg/dl (70-99) H 07/24/23 07:13
Troponins
07/22/23 07/22/23 07/23/23
18:36 23:48 05:54
Troponin I 0.157 H* 16.200 H* D 34.900 H* D
07/23/23 07/23/23 07/24/23
12:34 17:36 01:03
Troponin I 39.300 H* 32.100 H* 24.800 H*
07/24/23
07:13
Troponin I 19.500 H*
Vital Signs and I&O:
Vital Signs
Temp Pulse Resp BP Pulse Ox
100 F 67 18 109/61 97
07/24/23 08:22 07/24/23 08:22 07/24/23 08:22 07/24/23 08:22 07/24/23 08:22
Vital Signs
Temp Pulse Resp BP Pulse Ox
100 F 67 18 109/61 97
07/24/23 08:22 07/24/23 08:22 07/24/23 08:22 07/24/23 08:22 07/24/23 08:22
Intake & Output
07/22/23 07/23/23 07/24/23 07/25/23
06:59 06:59 06:59 06:59
Intake Total 840 / 840 840 / 840
Output Total 250 / 250 750 / 750
Balance 590 / 590 90 / 90
Physical Exam
Physical Exam
GEN: NAD. Awake, alert, oriented x3
HEENT: EOMI, MMM
LUNGS: Decreased BS throughout without wheeze or rales
CV: Reg, S1/S2, 3/6 syst LSB
ABD: +BS, ND, NT, soft
EXT: No clubbing, cyanosis, lesions or edema B/L
NEURO: Gross non-focal
SKIN: Warm, dry and pink. No rash
[2023-07-24 11:30] LABS: Glucose - Point of Care 128 mg/dl (70-99)
[2023-07-24 11:50] VITALS: BP 124/71
[2023-07-24 13:10] LABS: APTT 104.3 Sec (23.4-35.0)
--- NOTE | 2023-07-24 14:17 | W.PN.HOSP.TC ---
Today's Communication/Plan
-
abx
tamiflu
hep ggt
plan for [facility] next week possibly
Assessment / Plan
Assessment / Plan
72 yo man with PMH aortic valve replacement x 3 (most recent in 2020 at [place]), atrial fibrillation/flutter on Coumadin, HTN, CVA 2020, CAD s/p CABG 2017, HTN, IDDM who presented to the ER with cough, fever/chills and body aches x 1-2 days.�
He felt increasingly SOB, hence EMS was called and he was found to have initial pulse ox 85% and was placed on supplemental oxygen on the way to hospital.�
Patient lives with granddaughter and states entire family has had URI symptoms.�
A/P:
# Sepsis POA�due to Influenza and CAP
# Acute hypoxic respiratory insufficiency, resolved
# Resolved mild lactate acidosis from admission
weaned back to RA
Flu A positive, Cont Tamiflu (renally adjusted) x 5 days
CXR with Bilateral patchy pneumonia.
Procal elevated at 0.47
Cont Ceftriaxone/doxycycline
standing duonebs
# Troponin Elevation due to NSTEMI
patient denies chest pain
TTE last week 07/17/23: ejection fraction is 55-60%, Stage I diastolic dysfunction, moderate bioprosthetic aortic valve dysfunction.�
Troponin trending upward, now at 34, cont to trend until peak.
ECHO upodated
continue [facility] aspirin
cardiology on board, plan for cardiac cath early next week
Cont Hep ggt
# CKD stage III
creatinine at baseline
# Paroxysmal atrial fibrillation/aflutter
[facility] Toprol replaced with Lopressor
[facility] Coumadin replaced with heparin drip prior to cath
cardiology on board
# HFpEF
# Moderate MR
# hx Aortic valve replacement x 3 (last at [facility] 2020)
[facility] lasix 60mg PO QD
hold [facility] lasix in setting of infection and decreased PO intake
s/p gentle hydration
Monitor volume status
# Essential Hypertension
[facility] Toprol replaced with Lopressor
# CVA 2020
# Coronary artery disease s/p CABG 2017
[facility] asprin/statin/metoprolol
# IDDM
[facility] Lantus dose was decreased from 15 units HS to 8 units HS, resume as no plans for cath this weekend
Cover with ISS low
#Hyponatremia
mild
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
-ctm
DVT PPx [facility] coumadin replaced with heparin drip
FULL CODE
Total time spent on today's encounter was 50 minutes which included time spent in counseling the patient/family regarding diagnosis and treatment plan as listed above, goals of care, and symptom management. Case was discussed with nursing staff,
specialists, and care coordinators/case management. All labs and imaging personally reviewed by me. Remainder the time spent in detailed review of previous records, lab data, imaging, and other medical provider documentation.
Anticipated Discharge: > 48 hours
Subjective/Interval History
-
Date of Service: July 24, 2023
No acute events
Objective Data
-
Labs:
Laboratory Results
07/24/23 07/24/23
07:13 12:49
APTT 89.4 H 104.3 H
Sodium 133 L
Potassium 3.9
Chloride 101
Carbon Dioxide 22
BUN 27 H
Creatinine 1.1
Glucose 134 H
Calcium 8.2 L
Vital Signs:
Vital Signs
Temp Pulse Resp BP Pulse Ox
98.8 F 65 14 124/71 97
07/24/23 11:50 07/24/23 12:11 07/24/23 12:11 07/24/23 12:11 07/24/23 12:11
I&O
07/23/23 07/24/23 07/25/23
06:59 06:59 06:59
Intake Total 840 / 840 840 / 840
Output Total 250 / 250 750 / 750
Balance 590 / 590 90 / 90
Review of Systems
-
History Source: Patient
All other systems: Reviewed and negative
Physical Exam
-
General: Well Developed, Well Nourished, No Apparent Distress, Comfortable and Conversant (speak in full sentences)
HEENT: Normocephalic, Atraumatic, Moist Mucous Membranes and Hearing Impaired; Negative Oxygen
Respiratory: Clear to Auscultation and Non Labored Respirations; Negative Wheezes, Crackles or Accessory Resp Muscle Use
Cardiac: Regular Rhythm and S1/S2
GI: Soft, Nontender, Nondistended and Normal Bowel Sounds
Musculoskeletal: No Clubbing, No Cyanosis and No Edema
Neuro: Awake, Alert, Oriented and No Motor Deficits
Psych: Calm and Intact Judgement/Insight
Data Reviewed
-
Diagnostic Radiology: Image personally visualized and interpreted and Report Reviewed by me
Labs: Labs Reviewed by me
[2023-07-24] MEDS: DUONEB INH (15:54)
[2023-07-24 15:55] VITALS: BP 112/66
[2023-07-24 16:38] LABS: Glucose - Point of Care 111 mg/dl (70-99)
[2023-07-24 19:44] VITALS: BP 120/67
[2023-07-24] MEDS: TYLENOL 650 MG PO (20:13)
[2023-07-24] MEDS: HEPARIN 25000 UNITS/250 ML IV (21:11)
[2023-07-24] MEDS: MELATONIN 3 MG PO (21:16)
[2023-07-24] MEDS: ROBITUSSIN AC 10 ML PO (21:17)
[2023-07-24 21:22] LABS: Glucose - Point of Care 142 mg/dl (70-99)
[2023-07-24] MEDS: LANTUS 0.0800000000000000017 UNITS SC (21:24)
[2023-07-24 23:33] VITALS: BP 95/53
[2023-07-24] MEDS: STERILE WATER FOR INJECTION 10 ML IV (23:34)
[2023-07-24] MEDS: LOPRESSOR PO (23:34)
[2023-07-24] MEDS: ROCEPHIN 1000 MG IV (23:35)
[2023-07-25] VITALS (7 sets, daily range): BP systolic 90–134; BP diastolic 48–74; BMI 29.2
[2023-07-25] MEDS: LOPRESSOR 25 MG PO ×3 (05:29→18:21)
[2023-07-25] MEDS: TYLENOL 650 MG PO ×3 (06:15→22:27)
[2023-07-25 06:30] LABS: Hematocrit 33.1 % (39.0-52.0); Mean Corp Hgb Conc. 33.2 g/dL (33.0-37.0); Mean Corpuscular Hgb 30.6 pg (27.0-31.0); Mean Corpuscular Volume 91.9 fL (80.0-94.0); Mean Platelet Volume 11.3 fL (7.4-10.4); Platelet Count 141 10^3/uL (130-400); Red Cell Dist. Width 13.7 % (11.5-14.5)
[2023-07-25 06:47] LABS: INR 1.85; PT 21.2 Sec (11.4-14.6)
[2023-07-25 06:49] LABS: APTT 86.5 Sec (23.4-35.0)
[2023-07-25 06:56] LABS: ALT (SGPT) 34 U/L (0-50); AST (SGOT) 111 U/L (17-59); Alkaline Phosphatase 45 U/L (38-126); Blood Urea Nitrogen 31 mg/dl (9-20); Calcium 8.6 mg/dl (8.4-10.2); Carbon Dioxide 25 mmol/L (22-30); Chloride 101 mmol/L (98-107); Estimated Creatinine Clearance 56 ml/min; Glucose 137 mg/dl (70-99); Potassium 4.3 mmol/L (3.5-5.1); Sodium 136 mmol/L (135-145); Total Bilirubin 0.7 mg/dl (0.2-1.3); Total Protein 5.3 g/dl (6.3-8.2); eGFR > 60.00
[2023-07-25 07:42] LABS: Glucose - Point of Care 150 mg/dl (70-99)
[2023-07-25] MEDS: VIBRAMYCIN 100 MG PO ×2 (08:41→20:21)
[2023-07-25] MEDS: MUCINEX 600 MG PO ×2 (08:41→20:20)
[2023-07-25] MEDS: TRICOR 145 MG PO (08:41)
[2023-07-25] MEDS: SENOKOT 17.1999999999999993 MG PO (08:41)
[2023-07-25] MEDS: LIPITOR 80 MG PO (08:41)
[2023-07-25] MEDS: ASPIR LOW (ENTERIC COATED) 81 MG PO (08:41)
[2023-07-25] MEDS: NOVOLOG FLEXPEN-LOW RESISTANCE 1 UNITS SC (08:41)
[2023-07-25] MEDS: PROZAC 60 MG PO (08:41)
[2023-07-25] MEDS: ZYRTEC 10 MG PO (08:41)
[2023-07-25] MEDS: TAMIFLU 30 MG PO ×2 (08:41→20:20)
--- NOTE | 2023-07-25 09:12 | W.PN.CARDCBS ---
Addendum entered and electronically signed by Kurt Pham MD 07/25/23 11:38:
Patient seen, interviewed and examined by me.
Well-appearing, no acute distress
Regular rate and rhythm with normal S1 and S2, no S3 no S4. There is a grade 1/6 apical holosystolic murmur and no rubs. PMI is normally placed.
Lungs are clear to auscultation bilaterally without wheezes rales or rhonchi.
Abdomen soft nontender nondistended with normoactive bowel sounds
Extremities show trace pretibial edema bilaterally no clubbing or cyanosis.
Neurologic exam is grossly nonfocal.
Agree with advanced practice professionals assessment and plan as noted below.
No new anginal symptoms.
Continue antianginal therapy.
Overall rather complex case and neck step will be coronary angiography on Thursday.
Original Note:
Today's Communication / Plan
-
Continue heparin while await cath Thursday.
Continue flu management per primary service.
Impression / Plan
-
PCP: Dr. Tammie Barrios
Cardiology: Dr. Brenner
Impression:
Acute hypoxemic respiratory insufficiency
NSTEMI, peak troponin 39.3
Influenza positive 07/22/23
Aortic stenosis
s/p aortic root homograft at [facility] with Dr. Fuentes 1998
s/p redo sternotomy with aortic root reconstruction, tissue AVR and left main coronary reconstruction at [facility] 2008
s/p TAVR with prosthetic mismatch at 07/01/18
s/p redo sternotomy with tissue AVR due to TAVR prosthetic mismatch and stenosis, s/p SVG to LAD by Dr. Mcginnis at [place] 01/07/21
CAD
s/p LM coronary reconstruction at time of aortic root reconstruction and tiss AVR 2008
s/p 3 mm Promus LEONCIO to LAD 05/2018
[employer] RCA and new high-grade mid LAD stenosis beyond stented segment by cath 12/2020
LAD disease managed by SVG to LAD CABG at time of redo sternotomy and AVR at [place] 01/07/21
NSTEMI 07/22/23
Paroxysmal typical Aflutter, s/p CV Jan 2020
Chronic warfarin OAC
h/o CVA with left MCA infarct 01/11/21
previously taking Xarelto prior to redo sternotomy and tiss AVR at [place] 01/07/21, then CVA 01/11/21 and seen by Neurosurgery at [place] and they recommended warfarin
Hypertension
DM2
WHIT on CKD 3a
Depression
Former smoker
Former alcohol abuse
ECHO 12/06/2020: Function; EF 55 to 60%.� Moderate LVH.� Stage II diastolic dysfunction.� Normal RV size and function.� Mildly dilated RA.� Noted status post sapient #3 prosthetic valve with severe AAS.� Peak/mean gradients 113/66 mmHg. mild TR.� PAP
33 mmHg
Echo 07/17/23: EF 55-60%, stage I diastolic dysfunction, mod MR, well-seated bioprosthetic aortic valve replacement with restricted leaflet motion peak and mean gradients are 63 and 39 mmHg at least moderate bioprosthetic dysfunction, mild AR
Echo 07/23/2023: EF 48%, akinesis of the apical inferoseptal and anteroseptal wall, moderate MR, bioprosthetic aortic valve with peak/mean gradients 56/32 mmHg, mild to moderate TR, estimated PAP 35 to 40 mmHg
Plan:
-Presented with SOB and found to be influenza positive. Continue management with Tamiflu, nebs, abx per primary service.
-Also noted to have NSTEMI with peak troponin 39.3. Denies chest pain other than in the setting of coughing.
-Echo rechecked 07/23 and noted newly reduced EF with WMA.
-Recent outpatient stress test suggested anterior ischemia. Continue Heparin gtt while awaiting [facility] this admission, once recovered from influenza. Tentatively planned for Thursday, 07/27.
-Patient reports he does not think he will be interested in seeking surgical evaluation/opinion at [place] as he feels this will put unnecessary additional stress on himself and his family.
-Patient is chronically on warfarin for h/o typical atrial flutter and a h/o CVA after AVR at [place] 01/2021. He was taking Xarelto prior to that surgery and seen by Neurosurgery at [place] after CVA and they recommended warfarin.
-INRs managed by [facility] using a home monitor with an INR goal of 2-3. Warfarin on hold while on heparin.
-Continue lopressor 25mg Q6h. HR and BP stable.
-WHIT noted earlier in admission with creat as high as 1.5, trending back downwards and down to 1.1 on 07/25.
-Outpatient dose of Lasix 60 mg PO daily has been on hold since admission. Eventually restart Lasix.
-No longer febrile and cough is improving.
-Continue lipitor and aspirin 81mg daily.
HPI: [facility] yesterday with SOB and hypoxia, he is now admitted with influenza and cardiology is consulted for NSTEMI. Patient lives with his daughter and grandchildren and everyone in the home was sick with URI symptoms, but he had
progressive SOB and called 911 yesterday and when paramedics arrived he was hypoxic with an initial pulse ox 89% on RA. Patient was started on oxygen in [facility] and tested positive for influenza. He had WHIT with Cre up to 1.5 on admission, but
improving with IVFs overnight. His outpatient dose of Lasix is on hold as well. Patient complains of chest pain with cough and ECG with LBBB that appears to be overall newer since about 01/2023. Initial Troponin was 0.157 and is up to 34.9 this
morning. Chest pain only with cough. He reports breathing is better. He was started on Tamiflu.
Progress Note - Learning Design Specialist
Subjective
Date of Service: July 25, 2023
No chest pain, still with minor cough.
Objective
Labs:
07/25/23 05:42
07/25/23 05:42
Labs
Hgb 11.0 g/dL (13.0-18.0) L 07/25/23 05:42
Hct 33.1 % (39.0-52.0) L 07/25/23 05:42
Plt Count 141 10^3/uL (130-400) 07/25/23 05:42
PT 21.2 Sec (11.4-14.6) H 07/25/23 05:42
INR 1.85 07/25/23 05:42
APTT 86.5 Sec (23.4-35.0) H 07/25/23 05:42
Sodium 136 mmol/L (135-145) 07/25/23 05:42
Potassium 4.3 mmol/L (3.5-5.1) 07/25/23 05:42
BUN 31 mg/dl (9-20) H 07/25/23 05:42
Creatinine 1.1 mg/dL (0.7-1.3) 07/25/23 05:42
Glucose 137 mg/dl (70-99) H 07/25/23 05:42
Troponins
07/22/23 07/22/23 07/23/23
18:36 23:48 05:54
Troponin I 0.157 H* 16.200 H* D 34.900 H* D
07/23/23 07/23/23 07/24/23
12:34 17:36 01:03
Troponin I 39.300 H* 32.100 H* 24.800 H*
07/24/23
07:13
Troponin I 19.500 H*
Vital Signs and I&O:
Vital Signs
Temp Pulse Resp BP Pulse Ox
98.2 F 62 16 105/61 94
07/25/23 08:42 07/25/23 08:42 07/25/23 08:42 07/25/23 08:42 07/25/23 08:42
Vital Signs
Temp Pulse Resp BP Pulse Ox
98.2 F 62 16 105/61 94
07/25/23 08:42 07/25/23 08:42 07/25/23 08:42 07/25/23 08:42 07/25/23 08:42
Intake & Output
07/23/23 07/24/23 07/25/23 07/26/23
06:59 06:59 06:59 06:59
Intake Total 840 / 840 840 / 840 910 / 910
Output Total 250 / 250 750 / 750 1350 / 1350
Balance 590 / 590 90 / 90 -440 / -440
Physical Exam
Physical Exam
GEN: NAD. Awake, alert, oriented x3
HEENT: EOMI, MMM
LUNGS: Few scattered rhonchi and wheezes.
CV: Reg, S1/S2, 3/6 syst LSB
ABD: +BS, ND, NT, soft
EXT: No clubbing, cyanosis, lesions or edema B/L
NEURO: Gross non-focal
SKIN: Warm, dry and pink. No rash
[2023-07-25 12:06] LABS: Glucose - Point of Care 95 mg/dl (70-99)
[2023-07-25] MEDS: NOVOLOG FLEXPEN-LOW RESISTANCE SC ×2 (12:38→17:51)
--- NOTE | 2023-07-25 14:12 | W.PN.HOSP.TC ---
Today's Communication/Plan
-
hep ggt
cath thursday
abx, tamiflu
Assessment / Plan
Assessment / Plan
72 yo man with PMH aortic valve replacement x 3 (most recent in 2020 at [place]), atrial fibrillation/flutter on Coumadin, HTN, CVA 2020, CAD s/p CABG 2017, HTN, IDDM who presented to the ER with cough, fever/chills and body aches x 1-2 days.�
He felt increasingly SOB, hence EMS was called and he was found to have initial pulse ox 85% and was placed on supplemental oxygen on the way to hospital.�
Patient lives with granddaughter and states entire family has had URI symptoms.�
A/P:
# Sepsis POA�due to Influenza and CAP
# Acute hypoxic respiratory insufficiency, resolved
# Resolved mild lactate acidosis from admission
weaned back to RA
Flu A positive, Cont Tamiflu (renally adjusted) x 5 days
CXR with Bilateral patchy pneumonia.
Procal elevated at 0.47
Cont Ceftriaxone/doxycycline
standing duonebs
# Troponin Elevation due to NSTEMI
patient denies chest pain
TTE last week 07/17/23: ejection fraction is 55-60%, Stage I diastolic dysfunction, moderate bioprosthetic aortic valve dysfunction.�
Troponin trending upward, now at 34, cont to trend until peak.
ECHO updated
continue [facility] aspirin
cardiology on board, plan for cardiac cath early next week
Cont Hep ggt
# CKD stage III
creatinine at baseline
# Paroxysmal atrial fibrillation/aflutter
[facility] Toprol replaced with Lopressor
[facility] Coumadin replaced with heparin drip prior to cath
cardiology on board
# HFpEF
# Moderate MR
# hx Aortic valve replacement x 3 (last at [facility] 2020)
[facility] lasix 60mg PO QD
hold [facility] lasix in setting of infection and decreased PO intake
s/p gentle hydration
Monitor volume status
# Essential Hypertension
[facility] Toprol replaced with Lopressor
# CVA 2020
# Coronary artery disease s/p CABG 2017
[facility] asprin/statin/metoprolol
# IDDM
[facility] Lantus dose was decreased from 15 units HS to 8 units HS, resume as no plans for cath this weekend
Cover with ISS low
#Hyponatremia
mild
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
-ctm
DVT PPx [facility] coumadin replaced with heparin drip
FULL CODE
Anticipated Discharge: > 48 hours
Subjective/Interval History
-
Date of Service: July 25, 2023
No events overnight
Objective Data
-
Labs:
Laboratory Results
07/25/23
05:42
WBC 5.0
Hgb 11.0 L
Hct 33.1 L
Plt Count 141
PT 21.2 H
INR 1.85
APTT 86.5 H
Sodium 136
Potassium 4.3
Chloride 101
Carbon Dioxide 25
BUN 31 H
Creatinine 1.1
Glucose 137 H
Calcium 8.6
Total Bilirubin 0.7
AST 111 H
ALT 34
Alkaline Phosphatase 45
Vital Signs:
Vital Signs
Temp Pulse Resp BP Pulse Ox
97.9 F 72 16 117/63 94
07/25/23 11:15 07/25/23 11:15 07/25/23 11:15 07/25/23 11:15 07/25/23 11:15
I&O
07/24/23 07/25/23 07/26/23
06:59 06:59 06:59
Intake Total 840 / 840 910 / 910
Output Total 750 / 750 1350 / 1350
Balance 90 / 90 -440 / -440
Review of Systems
-
History Source: Patient
All other systems: Reviewed and negative
Data Reviewed
-
Diagnostic Radiology: Image personally visualized and interpreted and Report Reviewed by me
Labs: Labs Reviewed by me
[2023-07-25 17:24] LABS: Glucose - Point of Care 137 mg/dl (70-99)
[2023-07-25 22:20] LABS: Glucose - Point of Care 129 mg/dl (70-99)
[2023-07-25] MEDS: LANTUS 0.0800000000000000017 UNITS SC (22:27)
[2023-07-25] MEDS: MELATONIN 3 MG PO (22:27)
[2023-07-26] MEDS: STERILE WATER FOR INJECTION 10 ML IV ×2 (00:05→23:33)
[2023-07-26] MEDS: ROCEPHIN 1000 MG IV ×2 (00:05→23:44)
[2023-07-26] MEDS: LOPRESSOR PO (00:05)
[2023-07-26] MEDS: ROBITUSSIN AC 10 ML PO ×2 (00:14→22:25)
--- NOTE | 2023-07-26 01:09 | PTCARENOTE ---
Rec'd pt at the start of the shift upset and irritated. Told RN she was not needed and she could leave. 15 minutes later RN went in to check on pt and he was apologetic. He verbalized his frustration with what was going on in his personal life at
this time. His being in the hospital and things going on outside of the hospital. Emotional support provided. Vital signs stable at that time. Pt offered no other complaints.
[2023-07-26 03:52] VITALS: BP 126/64
[2023-07-26 06:00] VITALS: BMI 29.0
[2023-07-26] MEDS: LOPRESSOR 25 MG PO ×4 (06:06→23:32)
[2023-07-26] MEDS: HEPARIN 25000 UNITS/250 ML IV (06:10)
[2023-07-26 07:10] VITALS: BP 114/58
[2023-07-26 07:49] LABS: Glucose - Point of Care 137 mg/dl (70-99)
[2023-07-26 07:58] LABS: PT 17.9 Sec (11.4-14.6)
[2023-07-26 08:00] LABS: APTT 63.7 Sec (23.4-35.0)
[2023-07-26 08:05] LABS: ALT (SGPT) 35 U/L (0-50); AST (SGOT) 69 U/L (17-59); Albumin 3.1 g/dl (3.5-5.0); Alkaline Phosphatase 52 U/L (38-126); Blood Urea Nitrogen 27 mg/dl (9-20); Calcium 8.1 mg/dl (8.4-10.2); Carbon Dioxide 23 mmol/L (22-30); Chloride 107 mmol/L (98-107); Estimated Creatinine Clearance 62 ml/min; Glucose 124 mg/dl (70-99); Potassium 3.7 mmol/L (3.5-5.1); Sodium 135 mmol/L (135-145); Total Bilirubin 0.7 mg/dl (0.2-1.3); Total Protein 5.4 g/dl (6.3-8.2); eGFR > 60.00
[2023-07-26] MEDS: NOVOLOG FLEXPEN-LOW RESISTANCE SC (08:24)
[2023-07-26] MEDS: TRICOR 145 MG PO (09:08)
[2023-07-26] MEDS: TAMIFLU 30 MG PO ×2 (09:08→20:07)
[2023-07-26] MEDS: SENOKOT 17.1999999999999993 MG PO (09:08)
[2023-07-26] MEDS: ASPIR LOW (ENTERIC COATED) 81 MG PO (09:08)
[2023-07-26] MEDS: LIPITOR 80 MG PO (09:09)
[2023-07-26] MEDS: VIBRAMYCIN 100 MG PO ×2 (09:09→20:06)
[2023-07-26] MEDS: MUCINEX 600 MG PO ×2 (09:09→20:06)
[2023-07-26] MEDS: ZYRTEC 10 MG PO (09:09)
[2023-07-26] MEDS: PROZAC 60 MG PO (09:09)
--- NOTE | 2023-07-26 10:43 | W.PN.CARDCBS ---
Today's Communication / Plan
-
Plan for coronary angiography tomorrow
Impression / Plan
-
PCP: Dr. Tammie Barrios
Cardiology: Dr. Brenner
Impression:
Acute hypoxemic respiratory insufficiency
NSTEMI, peak troponin 39.3
Influenza positive 07/22/23
Aortic stenosis
s/p aortic root homograft at [facility] with Dr. Fuentes 1998
s/p redo sternotomy with aortic root reconstruction, tissue AVR and left main coronary reconstruction at [facility] 2008
s/p TAVR with prosthetic mismatch at 07/01/18
s/p redo sternotomy with tissue AVR due to TAVR prosthetic mismatch and stenosis, s/p SVG to LAD by Dr. Mcginnis at [place] 01/07/21
CAD
s/p LM coronary reconstruction at time of aortic root reconstruction and tiss AVR 2008
s/p 3 mm Promus LEONCIO to LAD 05/2018
[employer] RCA and new high-grade mid LAD stenosis beyond stented segment by cath 12/2020
LAD disease managed by SVG to LAD CABG at time of redo sternotomy and AVR at [place] 01/07/21
NSTEMI 07/22/23
Paroxysmal typical Aflutter, s/p CV Jan 2020
Chronic warfarin OAC
h/o CVA with left MCA infarct 01/11/21
previously taking Xarelto prior to redo sternotomy and tiss AVR at [place] 01/07/21, then CVA 01/11/21 and seen by Neurosurgery at [place] and they recommended warfarin
Hypertension
DM2
WHIT on CKD 3a
Depression
Former smoker
Former alcohol abuse
ECHO 12/06/2020: Function; EF 55 to 60%.� Moderate LVH.� Stage II diastolic dysfunction.� Normal RV size and function.� Mildly dilated RA.� Noted status post sapient #3 prosthetic valve with severe AAS.� Peak/mean gradients 113/66 mmHg. mild TR.� PAP
33 mmHg
Echo 07/17/23: EF 55-60%, stage I diastolic dysfunction, mod MR, well-seated bioprosthetic aortic valve replacement with restricted leaflet motion peak and mean gradients are 63 and 39 mmHg at least moderate bioprosthetic dysfunction, mild AR
Echo 07/23/2023: EF 48%, akinesis of the apical inferoseptal and anteroseptal wall, moderate MR, bioprosthetic aortic valve with peak/mean gradients 56/32 mmHg, mild to moderate TR, estimated PAP 35 to 40 mmHg
Plan:
-Presented with SOB and found to be influenza positive. Continue management with Tamiflu, nebs, abx per primary service.
Overall significantly improved. No longer febrile and cough is improving.
-Also noted to have NSTEMI with peak troponin 39.3. Denies chest pain other than in the setting of coughing.
-Echo rechecked 07/23 and noted newly reduced EF with WMA.
-Recent outpatient stress test suggested anterior ischemia. Continue Heparin gtt while awaiting [facility] this admission, once recovered from influenza. Cath planned for Thursday, 07/27.
-As an outpatient valve gradients have been noted to be increasing. Similarly this admission bioprosthetic aortic valve with peak/mean gradients 56/32 mmHg
patient reports he does not think he will be interested in seeking surgical evaluation/opinion at [place] as he feels a 4th sternotomy would not be an option
At some point, if valve gradients continue to worsen, there may be an option for TAVR
-Patient is chronically on warfarin for h/o typical atrial flutter and a h/o CVA after AVR at [place] 01/2021. He was taking Xarelto prior to that surgery and seen by Neurosurgery at [place] after CVA, recommended warfarin.
Warfarin has since been off and he has been on IV heparin.
INR has normalized
He is maintained on IV heparin which we will stop in the a.m. in preparation for coronary angiography
-INRs managed by [facility] using a home monitor with an outpatient INR goal of 2-3. Warfarin on hold while on heparin.
-Continue lopressor 25mg Q6h. HR and BP stable.
-WHIT noted earlier in admission with creat as high as 1.5, trending back downwards and down to 1.1 on 07/25 and 1 on 07/26/23. Renal function has normalized.
Outpatient dose of Lasix 60 mg PO daily has been on hold since admission. Eventually restart Lasix.
-Continue lipitor and aspirin 81mg daily.
HPI: Patient came to [facility] yesterday with SOB and hypoxia, he is now admitted with influenza and cardiology is consulted for NSTEMI. Patient lives with his daughter and grandchildren and everyone in the home was sick with URI symptoms, but he had
progressive SOB and called 911 yesterday and when paramedics arrived he was hypoxic with an initial pulse ox 89% on RA. Patient was started on oxygen in [facility] and tested positive for influenza. He had WHIT with Cre up to 1.5 on admission, but
improving with IVFs overnight. His outpatient dose of Lasix is on hold as well. Patient complains of chest pain with cough and ECG with LBBB that appears to be overall newer since about 01/2023. Initial Troponin was 0.157 and is up to 34.9 this
morning. Chest pain only with cough. He reports breathing is better. He was started on Tamiflu.
Progress Note - [employer] Department Chair
Subjective
Date of Service: July 26, 2023
He tells me he feels well overall. Well at rest. No chest pain shortness of breath palpitations or dizziness. His cough is essentially resolved. He is no longer short of breath.
Total Time Spent with Patient (in minutes): 52
Objective
Labs:
07/25/23 05:42
07/26/23 07:05
Labs
Hgb 11.0 g/dL (13.0-18.0) L 07/25/23 05:42
Hct 33.1 % (39.0-52.0) L 07/25/23 05:42
Plt Count 141 10^3/uL (130-400) 07/25/23 05:42
PT 17.9 Sec (11.4-14.6) H 07/26/23 07:05
INR 1.50 07/26/23 07:05
APTT 63.7 Sec (23.4-35.0) H 07/26/23 07:05
Sodium 135 mmol/L (135-145) 07/26/23 07:05
Potassium 3.7 mmol/L (3.5-5.1) 07/26/23 07:05
BUN 27 mg/dl (9-20) H 07/26/23 07:05
Creatinine 1.0 mg/dL (0.7-1.3) 07/26/23 07:05
Glucose 124 mg/dl (70-99) H 07/26/23 07:05
Troponins
07/23/23 07/23/23 07/24/23
12:34 17:36 01:03
Troponin I 39.300 H* 32.100 H* 24.800 H*
07/24/23
07:13
Troponin I 19.500 H*
Vital Signs and I&O:
Vital Signs
Temp Pulse Resp BP Pulse Ox
98.3 F 61 14 114/58 98
07/26/23 07:10 07/26/23 07:10 07/26/23 07:10 07/26/23 07:10 07/26/23 07:10
Vital Signs
Temp Pulse Resp BP Pulse Ox
98.3 F 61 14 114/58 98
07/26/23 07:10 07/26/23 07:10 07/26/23 07:10 07/26/23 07:10 07/26/23 07:10
Intake & Output
07/24/23 07/25/23 07/26/23 07/27/23
06:59 06:59 06:59 06:59
Intake Total 840 / 840 910 / 910 480 / 480
Output Total 750 / 750 1350 / 1350
Balance 90 / 90 -440 / -440 480 / 480
Physical Exam
Physical Exam
GEN: NAD. Awake, alert, oriented x3
HEENT: EOMI, MMM
LUNGS: Few scattered rhonchi and wheezes.
CV: Reg, S1/S2, 3/6 syst LSB
ABD: +BS, ND, NT, soft
EXT: No clubbing, cyanosis, lesions or edema B/L
NEURO: Gross non-focal
SKIN: Warm, dry and pink. No rash
[2023-07-26 11:05] VITALS: BP 100/54
[2023-07-26 11:25] LABS: Glucose - Point of Care 204 mg/dl (70-99)
[2023-07-26] MEDS: NOVOLOG FLEXPEN-LOW RESISTANCE 2 UNITS SC (12:41)
--- NOTE | 2023-07-26 13:36 | W.PN.HOSP.TC ---
Today's Communication/Plan
-
abx
hep ggt
C tomorrow
Assessment / Plan
Assessment / Plan
72 yo man with PMH aortic valve replacement x 3 (most recent in 2020 at [place]), atrial fibrillation/flutter on Coumadin, HTN, CVA 2020, CAD s/p CABG 2017, HTN, IDDM who presented to the ER with cough, fever/chills and body aches x 1-2 days.�
He felt increasingly SOB, hence EMS was called and he was found to have initial pulse ox 85% and was placed on supplemental oxygen on the way to hospital.�
Patient lives with granddaughter and states entire family has had URI symptoms.�
A/P:
# Sepsis POA�due to Influenza and CAP
# Acute hypoxic respiratory insufficiency, resolved
# Resolved mild lactate acidosis from admission
weaned back to RA
Flu A positive, Cont Tamiflu (renally adjusted) x 5 days
CXR with Bilateral patchy pneumonia.
Procal elevated at 0.47
Cont Ceftriaxone/doxycycline - 5 days
standing duonebs
# Troponin Elevation due to NSTEMI
patient denies chest pain
TTE last week 07/17/23: ejection fraction is 55-60%, Stage I diastolic dysfunction, moderate bioprosthetic aortic valve dysfunction.�
Troponin trending upward, now at 34, cont to trend until peak.
ECHO updated
continue EMERGENCY ROOM REGISTERED NURSE aspirin
cardiology on board, plan for cardiac cath thursday
Cont Hep ggt
# CKD stage III
creatinine at baseline
# Paroxysmal atrial fibrillation/aflutter
EMERGENCY ROOM REGISTERED NURSE Toprol replaced with Lopressor
EMERGENCY ROOM REGISTERED NURSE Coumadin replaced with heparin drip prior to cath
cardiology on board
# HFpEF
# Moderate MR
# hx Aortic valve replacement x 3 (last at [facility] 2020)
EMERGENCY ROOM REGISTERED NURSE lasix 60mg PO QD
hold EMERGENCY ROOM REGISTERED NURSE lasix in setting of infection and decreased PO intake
s/p gentle hydration
Monitor volume status
# Essential Hypertension
EMERGENCY ROOM REGISTERED NURSE Toprol replaced with Lopressor
# CVA 2020
# Coronary artery disease s/p CABG 2017
EMERGENCY ROOM REGISTERED NURSE asprin/statin/metoprolol
# IDDM
EMERGENCY ROOM REGISTERED NURSE Lantus dose was decreased from 15 units HS to 8 units HS, resume as no plans for cath this weekend
Cover with ISS low
#Hyponatremia
mild
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
-ctm
DVT PPx EMERGENCY ROOM REGISTERED NURSE coumadin replaced with heparin drip
FULL CODE
Anticipated Discharge: 24 - 48 hours
Subjective/Interval History
-
Date of Service: July 26, 2023
no acute events
Objective Data
-
Labs:
Laboratory Results
07/26/23 07/26/23
07:05 13:05
PT 17.9 H
INR 1.50
APTT 63.7 H Pending
Sodium 135
Potassium 3.7
Chloride 107
Carbon Dioxide 23
BUN 27 H
Creatinine 1.0
Glucose 124 H
Calcium 8.1 L
Total Bilirubin 0.7
AST 69 H
ALT 35
Alkaline Phosphatase 52
Vital Signs:
Vital Signs
Temp Pulse Resp BP Pulse Ox
98.2 F 61 16 100/54 100
07/26/23 11:05 07/26/23 11:05 07/26/23 11:05 07/26/23 11:05 07/26/23 11:05
I&O
07/25/23 07/26/23 07/27/23
06:59 06:59 06:59
Intake Total 910 / 910 480 / 480
Output Total 1350 / 1350
Balance -440 / -440 480 / 480
Review of Systems
-
History Source: Patient
All other systems: Reviewed and negative
Physical Exam
-
General: Well Developed, Well Nourished, No Apparent Distress, Comfortable and Conversant (speak in full sentences)
HEENT: Normocephalic, Atraumatic, Moist Mucous Membranes and Hearing Impaired; Negative Oxygen
Respiratory: Clear to Auscultation
Cardiac: Regular Rhythm and S1/S2
GI: Soft, Nontender, Nondistended and Normal Bowel Sounds
Musculoskeletal: No Clubbing, No Cyanosis and No Edema
Neuro: Awake, Alert, Oriented and No Motor Deficits
Psych: Calm and Intact Judgement/Insight
Data Reviewed
-
Diagnostic Radiology: Image personally visualized and interpreted and Report Reviewed by me
Labs: Labs Reviewed by me
[2023-07-26 15:05] VITALS: BP 95/58
--- NOTE | 2023-07-26 15:57 | CM ---
Patient seen bedside, reports he does not want to complain, but had an issue with the over night tech from last night. CM relayed patients concern to nurse. Patient reports his is currently a patient in the hospital as well. Patient reports no
other concerns at this time. Per Hospitalist note, plan for cardia cath tomorrow. CM will continue to follow for discharge planning needs.
Plan; home no needs, watch for VN needs.
[2023-07-26 16:58] LABS: Glucose - Point of Care 160 mg/dl (70-99)
[2023-07-26] MEDS: NOVOLOG FLEXPEN-LOW RESISTANCE 1 UNITS SC (17:38)
[2023-07-26 19:58] VITALS: BP 122/57
[2023-07-26 20:15] LABS: APTT 90.8 Sec (23.4-35.0)
[2023-07-26 22:22] LABS: Glucose - Point of Care 138 mg/dl (70-99)
[2023-07-26] MEDS: LANTUS 0.0800000000000000017 UNITS SC (22:25)
[2023-07-26] MEDS: MELATONIN 3 MG PO (22:25)
[2023-07-26 23:26] VITALS: BP 105/56
[2023-07-26] MEDS: TYLENOL 650 MG PO (23:39)
[2023-07-27] VITALS (13 sets, daily range): BP systolic 87–137; BP diastolic 52–71; BMI 28.9
[2023-07-27 01:43] LABS: Hematocrit 28.3 % (39.0-52.0); Hemoglobin 10.2 g/dL (13.0-18.0); Mean Corpuscular Hgb 31.7 pg (27.0-31.0); Mean Corpuscular Volume 87.9 fL (80.0-94.0); Platelet Count 141 10^3/uL (130-400); Red Blood Cell Count 3.22 10^6/uL (4.70-6.10); Red Cell Dist. Width 13.3 % (11.5-14.5); White Blood Cell Count 4.9 10^3/uL (4.8-10.8)
[2023-07-27 01:55] LABS: INR 1.44; PT 17.4 Sec (11.4-14.6)
[2023-07-27 01:56] LABS: APTT 89.2 Sec (23.4-35.0)
[2023-07-27 02:36] LABS: ALT (SGPT) 35 U/L (0-50); AST (SGOT) 59 U/L (17-59); Alkaline Phosphatase 50 U/L (38-126); Blood Urea Nitrogen 31 mg/dl (9-20); Calcium 8.3 mg/dl (8.4-10.2); Carbon Dioxide 22 mmol/L (22-30); Chloride 107 mmol/L (98-107); Estimated Creatinine Clearance 56 ml/min; Glucose 121 mg/dl (70-99); Potassium 4.2 mmol/L (3.5-5.1); Sodium 133 mmol/L (135-145); Total Bilirubin 0.6 mg/dl (0.2-1.3); Total Protein 5.3 g/dl (6.3-8.2); eGFR > 60.00
[2023-07-27] MEDS: LOPRESSOR 25 MG PO ×2 (06:18→17:49)
[2023-07-27 06:26] LABS: Glucose - Point of Care 131 mg/dl (70-99)
[2023-07-27] MEDS: NOVOLOG FLEXPEN-LOW RESISTANCE SC ×3 (06:28→16:36)
[2023-07-27] MEDS: SENOKOT 17.1999999999999993 MG PO (08:34)
[2023-07-27] MEDS: ZYRTEC 10 MG PO (08:34)
[2023-07-27] MEDS: VIBRAMYCIN 100 MG PO ×2 (08:34→19:33)
[2023-07-27] MEDS: PROZAC 60 MG PO (08:35)
[2023-07-27] MEDS: MUCINEX 600 MG PO ×2 (08:35→19:33)
[2023-07-27] MEDS: LIPITOR 80 MG PO (08:35)
[2023-07-27] MEDS: TAMIFLU 30 MG PO ×2 (08:35→19:33)
[2023-07-27] MEDS: TRICOR 145 MG PO (08:35)
[2023-07-27] MEDS: ASPIR LOW (ENTERIC COATED) 81 MG PO (08:35)
--- NOTE | 2023-07-27 11:15 | W.PN.HOSP.TC ---
Today's Communication/Plan
-
Pt has mentioned to me that he is NOT going to [facility] anymore (interestingly, I have NOT mentioned [facility] to pt).
Pt also stated that he has mentioned to the cardiologists that he is NOT going to [facility].
Assessment / Plan
Assessment / Plan
72 yo man with PMH aortic valve replacement x 3 (most recent in 2020 at [facility]), atrial fibrillation/flutter on Coumadin, HTN, CVA 2020, CAD s/p CABG 2017, HTN, IDDM who presented to the ER with cough, fever/chills and body aches x 1-2 days.�
He felt increasingly SOB, hence EMS was called and he was found to have initial pulse ox 85% and was placed on supplemental oxygen on the way to hospital.�
Patient lives with granddaughter and states entire family has had URI symptoms.�
A/P:
# Sepsis POA�due to Influenza and CAP
# Acute hypoxic respiratory insufficiency, resolved
# Resolved mild lactate acidosis from admission
weaned back to RA
Flu A positive, Cont Tamiflu (renally adjusted) x 5 days
CXR with Bilateral patchy pneumonia.
Procal elevated at 0.47
Cont Ceftriaxone/doxycycline- 5 days
standing duonebs
# Troponin Elevation due to NSTEMI
patient denies chest pain
TTE last week 07/17/23: EF 55-60%, Stage I diastolic dysfunction, moderate bioprosthetic aortic valve dysfunction.�
Troponin peaked at 39 this admission.
Update echo 07/23/23 with now wall�motion abnormality with akinesis of the apical inferior septum and anterior septal wall.�EF is mildly depressed at 48.�No significant change in aortic valve gradients which were previously measured at 63 and 39 mmHg.
Continue CLINICAL DATA RESEARCH aspirin
Cardiology on board, plan for cardiac cath Thursday 07/27
# CKD stage III
creatinine at baseline
# Paroxysmal atrial fibrillation/aflutter
CLINICAL DATA RESEARCH Toprol replaced with Lopressor
CLINICAL DATA RESEARCH Coumadin replaced with heparin drip (on hold) prior to cath
cardiology on board
# HFpEF
# Moderate MR
# hx [facility]
CLINICAL DATA RESEARCH lasix 60mg PO daily, holding CLINICAL DATA RESEARCH lasix in setting of infection and decreased PO intake
s/p gentle hydration
Monitor volume status
# Essential Hypertension
CLINICAL DATA RESEARCH Toprol replaced with Lopressor
# CVA 2020
# Coronary artery disease s/p CABG 2017
CLINICAL DATA RESEARCH asprin/statin/metoprolol
# IDDM
CLINICAL DATA RESEARCH Lantus dose was decreased from 15 units HS to 8 units HS
Cover with ISS low
# Hyponatremia, mild; most likely SIADH with CAP
DVT PPx CLINICAL DATA RESEARCH coumadin replaced with heparin drip
FULL CODE
DW RN
Anticipated Discharge: 24 - 48 hours
Subjective/Interval History
-
Date of Service: July 27, 2023
Objective Data
-
Labs:
Laboratory Results
07/27/23 07/27/23 07/27/23
01:37 01:37 01:37
WBC 4.9
Hgb 10.2 L
Hct 28.3 L
Plt Count 141
PT Cancelled 17.4 H
INR Cancelled 1.44
APTT 89.2 H
Sodium 133 L
Potassium 4.2
Chloride 107
Carbon Dioxide 22
BUN 31 H
Creatinine 1.1
Glucose 121 H
Calcium 8.3 L
Total Bilirubin 0.6
AST 59
ALT 35
Alkaline Phosphatase 50
Vital Signs:
Vital Signs
Temp Pulse Resp BP Pulse Ox
36.6 C 61 18 103/65 96
07/27/23 07:00 07/27/23 07:00 07/27/23 07:00 07/27/23 07:00 07/27/23 07:00
I&O
07/26/23 07/27/23 07/28/23
06:59 06:59 06:59
Intake Total 480 / 480 1164 / 1164
Output Total 1200 / 1200
Balance 480 / 480 -36 / -36
Review of Systems
-
All other systems: Reviewed and negative
Physical Exam
-
General: Well Developed, Well Nourished, No Apparent Distress, Comfortable and Conversant (speak in full sentences)
HEENT: Normocephalic, Atraumatic, Moist Mucous Membranes and Hearing Impaired; Negative Oxygen
Respiratory: Non Labored Respirations; Negative Accessory Resp Muscle Use
Cardiac: Regular Rhythm and S1/S2
GI: Soft, Nontender, Nondistended and Normal Bowel Sounds
Musculoskeletal: No Clubbing, No Cyanosis and No Edema
Neuro: Awake, Alert and Oriented
Psych: Calm and Intact Judgement/Insight
Data Reviewed
-
Labs: Labs Reviewed by me
[2023-07-27 11:34] LABS: Glucose - Point of Care 117 mg/dl (70-99)
--- NOTE | 2023-07-27 15:03 | ITS.CL.CATH ---
[employer] Manager - Catheterization
Cardiac Catheterization
Procedure Report:
RIGHT AND LEFT HEART CATHETERIZATION
Date of Procedure: July 27, 2023
Referring: Dr. Kurt Pham
PROCEDURES:
1. Right heart catheterization
2. Left heart catheterization with coronary and single-plane left ventriculography. Coronary arteries could not be selectively cannulated. The right coronary artery is known to be ligated proximally
3. Selective saphenous vein graft angiography finding 100% occlusion of the SVG-LAD and ascending aortography confirming occlusion of the SVG
INDICATION: This is a 72-year-old gentleman with a very complex cardiovascular history. In 1998 he underwent replacement of the aortic root with a homograft at the age of 48. A Ross procedure had been planned at the time of the original operation
but the decision was made to change to a homograft implant for unclear reasons.
In November 2008, he presented to [facility] with progressive aortic stenosis while living in [place]. He underwent complex redo sternotomy. The RCA was ligated and a SVG - RCA was placed. The aortic root was
reconstructed with a composite 26x15 mm Hemashield graft that was connected to a 25 mm Saint Tomasz Epic porcine aortic valve prosthesis. The LM was reconstructed with a 6.0 x 30 mm Hemashield tube graft.
He did well again until May 2018 when he presented to [facility] with poor exercise tolerance over the preceding 6 months. His AV mean gradient ranged from 60-72 mmHg. He was discussed at a valve clinic meeting and was not felt to be
a good surgical candidate. He was referred back for elective stenting of the LAD with placement of a Promus 3.0 x 24 mm stent on 06/02/2018. The coronary procedure was followed with placement of a 23 mm Soliman RANDALL S3 valve via right common
femoral approach on 07/01/2018. His immediate post TAVR gradient measured 10 mmHg. The following morning his mean transthoracic AV gradients measured 55 mmHg!!!. He had a CLAUDIA performed on 07/02/2028 and his mean AV gradient measured 18 mmHg in the
transgastric views and transthoracic views were notable for a mean gradient of 26 mmHg with Pvel of 3.64 m/sec. Subsequent echocardiogram on 07/30/2018 was notable for a mean gradient of 37 mmHg, a mean gradient on 05/13/2019 of 39 mmHg, a mean
gradient on 11/09/2019 40 mmHg and a mean gradient on 12/06/2020 of 66 mmHg. He had a stress study that was notable or a very poor exercise capacity achieving 3 METs of physical activity.
He was again presented at [facility] and was felt to be very high risk for repeat surgical intervention. He was evaluated by Dr. Mcginnis and on 01/07/2021 he underwent redo redo redo AV replacement using a MEDIUM Valdemar Perceval Sutureless Valve
(intra-annular) and coronary artery bypass grafting with a SVG-LAD (notation was made that the SOSA was NOT used due to extensive left chest scarring. A high transverse aortotomy was performed in the ascending aorta. The aortic valve was excised
and the Medium Perceval valve was deployed and the balloon inflated to achieve a seal. The mean aortic valve gradient at was estimated at 15 mmhg at the time of surgery.
Subsequent echocardiograms had the following mean gradients: 01/21/21: mean 20 mmHg, 04/04/22: mean 17 mmHg, 06/30/22: mean 7 mmHg, 07/17/23: mean 39 mmHg, 07/23/23 mean 32 mmHg with an EF of 48% and akinesis of apical inferoseptum and anteroseptal
rea.
ACCESS: Right common femoral artery and femoral vein using ultrasound guidance and placement of 6 Setswana sheaths
HEMODYNAMICS (mmHg) :
RA (m) : 10
RV (s/d) : 36/2
PA (s/d,m) : 36/60, 24
PCWP (m) : 21
AO (s/d, m) : 90/48, 65
LV (s/d) : 165/10
LVEDP (m) : 20
Estimated Codey Cardiac Output: 4.24 L/min and Cardiac Index: 2.2 L/min/M-2
Systemic vascular resistance: 13 Wood units = 1040 [id number]
Pulmonary vascular resistance: 0.71 Wood units = 57 [id number]
AORTIC VALVE:
Mean Gradient: 58 mmHg
Aortic Valve Area: 0.57 cm2
LEFT VENTRICULOGRAPHY: Left ventriculography was performed in an QUIGLEY projection. The digital single-plane left ventricular ejection fraction is visually estimated at 40-45% with anterolateral apical and inferoapical hypokinesis noted
CORONARY ANGIOGRAPHY
Dominance: Right
LEFT MAIN: The left main could only be nonselectively cannulated. JL3.5, JL4.0, and JL5 catheters were utilized in an attempt to recannulate the 6x30 mm LM/Hemishield tube graft. The coronary arteries are severely under filled with contrast and
assessment for significant stenosis is very limited.
LEFT ANTERIOR DESCENDING: Proximal LAD fills via nonselective engagement of left main. Faint contrast is noted beyond the stent into the mid LAD
CIRCUMFLEX: The circumflex is underfilled with nonselective engagement of the left main.
RIGHT CORONARY ARTERY: Known to be 100% occluded
GRAFT ANGIOGRAPHY:
1. SVG-LAD: 100% occluded
RADIATION SUMMARY: Fluoro Time (min): 17.6, Dose (mGy): 897, DAP (Gy.cm2) : 86.1
Closure Device: None
CONCLUSION
1. Nonselective angiography with patent LM proximal LAD and proximal circumflex.
2. Recurring bioprosthetic valve stenosis with very complex history of redo redo redo AVR and redo sternotomy x 2 including root replacement and re-anastomosis of coronary arteries. The SVG-LAD is 100% occluded.
RECOMMENDATIONS
1. Not many good treatment options
2. Maximize medical therapy.
3. Will discuss with CT surgery and Dr. Mcginnis but I'd suspect limited treatment options.
Copy to: Dr. Nishant Brenner
[2023-07-27] MEDS: LOPRESSOR PO (15:56)
[2023-07-27 16:36] LABS: Glucose - Point of Care 94 mg/dl (70-99)
[2023-07-27] MEDS: TYLENOL 650 MG PO (19:51)
[2023-07-27 21:29] LABS: Glucose - Point of Care 146 mg/dl (70-99)
[2023-07-27] MEDS: MELATONIN 3 MG PO (22:33)
[2023-07-27] MEDS: ROBITUSSIN AC 10 ML PO (22:33)
[2023-07-27] MEDS: LANTUS 0.0800000000000000017 UNITS SC (22:34)
[2023-07-27] MEDS: STERILE WATER FOR INJECTION 10 ML IV (23:27)
[2023-07-27] MEDS: ROCEPHIN 1000 MG IV (23:27)
[2023-07-27] MEDS: HEPARIN 25000 UNITS/250 ML IV (23:31)
[2023-07-28] MEDS: LOPRESSOR PO
[2023-07-28 00:56] LABS: APTT 60.2 Sec (23.4-35.0)
[2023-07-28 04:12] VITALS: BP 125/63
[2023-07-28 06:00] VITALS: BMI 28.6
[2023-07-28] MEDS: LOPRESSOR 25 MG PO (06:18)
[2023-07-28 07:26] LABS: Hemoglobin 10.4 g/dL (13.0-18.0); Mean Corp Hgb Conc. 33.5 g/dL (33.0-37.0); Mean Corpuscular Volume 92.5 fL (80.0-94.0); Mean Platelet Volume 11.4 fL (7.4-10.4); Platelet Count 154 10^3/uL (130-400); Red Blood Cell Count 3.35 10^6/uL (4.70-6.10); Red Cell Dist. Width 13.2 % (11.5-14.5); White Blood Cell Count 4.4 10^3/uL (4.8-10.8)
[2023-07-28 07:30] LABS: INR 1.42; PT 17.1 Sec (11.4-14.6)
[2023-07-28 07:32] LABS: APTT 82.2 Sec (23.4-35.0)
[2023-07-28 08:07] LABS: Glucose - Point of Care 143 mg/dl (70-99)
[2023-07-28 08:22] LABS: Blood Urea Nitrogen 26 mg/dl (9-20); Calcium 8.8 mg/dl (8.4-10.2); Carbon Dioxide 27 mmol/L (22-30); Chloride 103 mmol/L (98-107); Estimated Creatinine Clearance 56 ml/min; Glucose 124 mg/dl (70-99); Magnesium 1.8 mg/dl (1.6-2.3); Potassium 4.4 mmol/L (3.5-5.1); Sodium 136 mmol/L (135-145); eGFR > 60.00
[2023-07-28 08:29] VITALS: BP 117/72
--- NOTE | 2023-07-28 08:44 | W.PN.HOSP.TC ---
Addendum entered and electronically signed by Mony Chery MD 07/29/23 14:37:
# HFrEF
# pneumonia is related to/associated with/due to influenza and bacterial pneumonia
# Sepsis only due to pneumonia
# WHIT on CKD 3
Addendum entered and electronically signed by Mony Chery MD 07/28/23 13:35:
Total DC time 40 minutes
Discussed with cardiology team extensively
Original Note:
Today's Communication/Plan
-
see AP
Assessment / Plan
Assessment / Plan
72 yo man with PMH aortic valve replacement x 3 (most recent in 2020 at [place]), atrial fibrillation/flutter on Coumadin, HTN, CVA 2020, CAD s/p CABG 2017, HTN, IDDM who presented to the ER with cough, fever/chills and body aches x 1-2 days.�
He felt increasingly SOB, hence EMS was called and he was found to have initial pulse ox 85% and was placed on supplemental oxygen on the way to hospital.�
Patient lives with granddaughter and states entire family has had URI symptoms.�
A/P:
# Sepsis POA�due to Influenza and CAP
# Acute hypoxic respiratory insufficiency, resolved
# Resolved mild lactate acidosis from admission
weaned back to RA
Flu A positive, s/p Tamiflu (renally adjusted) x 5 days
CXR with Bilateral patchy pneumonia. Procal elevated at 0.47. s/p Ceftriaxone/doxycycline 5 days
standing duonebs
# Troponin Elevation due to NSTEMI
patient denies chest pain
TTE last week 07/17/23: EF 55-60%, Stage I diastolic dysfunction, moderate bioprosthetic aortic valve dysfunction.�
Troponin peaked at 39 this admission.
Update echo 07/23/23 with now wall�motion abnormality with akinesis of the apical inferior septum and anterior septal wall.�EF is mildly depressed at 48.�No significant change in aortic valve gradients which were previously measured at 63 and 39 mmHg.
Continue BOND CLERK aspirin
s/p cardiac cath 07/27: Recurring bioprosthetic valve stenosis with very complex history of redo redo redo AVR and redo sternotomy x 2 including root replacement and re-anastomosis of coronary arteries.�The SVG-LAD is 100% occluded.
Cardiology to review case with CT surgery regarding treatment options.�
Pt is adamant that he does NOT want any surgical intervention.
# CKD stage III
creatinine at baseline
# Paroxysmal atrial fibrillation/aflutter
BOND CLERK Toprol replaced with Lopressor
BOND CLERK Coumadin replaced with heparin drip
cardiology on board
# HFpEF
# Moderate MR
# hx Aortic valve replacement x 3 (last at [facility] 2020)
BOND CLERK lasix 60mg PO daily, holding BOND CLERK lasix in setting of infection and decreased PO intake
s/p gentle hydration
Monitor volume status
# Essential Hypertension
BOND CLERK Toprol replaced with Lopressor
# CVA 2020
# Coronary artery disease s/p CABG 2017
BOND CLERK asprin/statin/metoprolol
# IDDM
BOND CLERK Lantus dose decreased from 15 units HS to 8 units HS
Cover with ISS low
# Hyponatremia, mild; most likely SIADH with CAP
DVT PPx BOND CLERK coumadin replaced with heparin drip
FULL CODE
Anticipated Discharge: 24 - 48 hours
Subjective/Interval History
-
Date of Service: July 28, 2023
Objective Data
-
Labs:
Laboratory Results
07/28/23 07/28/23 07/28/23
00:34 06:56 13:00
WBC 4.4 L
Hgb 10.4 L
Hct 31.0 L
Plt Count 154
PT 17.1 H
INR 1.42
APTT 60.2 H 82.2 H Pending
Sodium 136
Potassium 4.4
Chloride 103
Carbon Dioxide 27
BUN 26 H
Creatinine 1.1
Glucose 124 H
Calcium 8.8
Vital Signs:
Vital Signs
Temp Pulse Resp BP Pulse Ox
36.8 C 67 16 117/72 97
07/28/23 08:29 07/28/23 08:29 07/28/23 08:29 07/28/23 08:29 07/28/23 08:29
I&O
07/27/23 07/28/23 07/29/23
06:59 06:59 06:59
Intake Total 1164 / 1164 1575 / 1575
Output Total 1200 / 1200 1050 / 1050
Balance -36 / -36 525 / 525
Review of Systems
-
All other systems: Reviewed and negative
Physical Exam
-
General: Well Developed, Well Nourished, No Apparent Distress, Comfortable and Conversant (speak in full sentences)
HEENT: Normocephalic, Atraumatic and Moist Mucous Membranes; Negative Oxygen
Respiratory: Non Labored Respirations; Negative Accessory Resp Muscle Use
Cardiac: Regular Rhythm and S1/S2
GI: Soft, Nontender, Nondistended and Normal Bowel Sounds
Musculoskeletal: No Clubbing, No Cyanosis and No Edema
Neuro: Awake, Alert and Oriented
Psych: Calm and Intact Judgement/Insight
Data Reviewed
-
Labs: Labs Reviewed by me
[2023-07-28] MEDS: NOVOLOG FLEXPEN-LOW RESISTANCE SC ×2 (09:30→13:01)
[2023-07-28] MEDS: PROZAC 60 MG PO (09:39)
[2023-07-28] MEDS: ZYRTEC 10 MG PO (09:39)
[2023-07-28] MEDS: MUCINEX 600 MG PO (09:39)
[2023-07-28] MEDS: LIPITOR 80 MG PO (09:40)
[2023-07-28] MEDS: ASPIR LOW (ENTERIC COATED) 81 MG PO (09:40)
[2023-07-28] MEDS: SENOKOT 17.1999999999999993 MG PO (09:40)
[2023-07-28] MEDS: TRICOR 145 MG PO (09:42)
[2023-07-28] MEDS: TAMIFLU 30 MG PO (09:42)
--- NOTE | 2023-07-28 10:56 | W.PN.CARDCBS ---
Addendum entered and electronically signed by Cary Lozoya PA-C 07/28/23 12:11:
correction to below: will restart OP lasix 60mg po daily.
d/w hospitalist
Original Note:
Today's Communication / Plan
-
Change Lopressor to Toprol
Restart Lasix 20 mg daily and check renal profile in 1 week
Lovenox bridge with restart of Coumadin today manage through our office
Records sent to Dr. Mcginnis with plans for outpatient visit
Impression / Plan
-
PCP: Dr. Tammie Barrios
Cardiology: Dr. Brenner
Impression:
Acute hypoxemic respiratory insufficiency
NSTEMI, peak troponin 39.3
Influenza positive 07/22/23
Aortic stenosis
s/p aortic root homograft at [facility] with Dr. Fuentes 1998
s/p redo sternotomy with aortic root reconstruction, tissue AVR and left main coronary reconstruction at [facility] 2008
s/p TAVR with prosthetic mismatch at 07/01/18
s/p redo sternotomy with tissue AVR due to TAVR prosthetic mismatch and stenosis, s/p SVG to LAD by Dr. Mcginnis at [facility] 01/07/21
CAD
s/p LM coronary reconstruction at time of aortic root reconstruction and tiss AVR 2008
s/p 3 mm Promus LEONCIO to LAD 05/2018
GORING CUTTER RCA and new high-grade mid LAD stenosis beyond stented segment by cath 12/2020
LAD disease managed by SVG to LAD CABG at time of redo sternotomy and AVR at [facility] 01/07/21
NSTEMI 07/22/23
Paroxysmal typical Aflutter, s/p CV Jan 2020
Chronic warfarin OAC
h/o CVA with left MCA infarct 01/11/21
previously taking Xarelto prior to redo sternotomy and tiss AVR at [facility] 01/07/21, then CVA 01/11/21 and seen by Neurosurgery at [facility] and they recommended warfarin
Hypertension
DM2
WHIT on CKD 3a
Depression
Former smoker
Former alcohol abuse
ECHO 12/06/2020: Function; EF 55 to 60%.� Moderate LVH.� Stage II diastolic dysfunction.� Normal RV size and function.� Mildly dilated RA.� Noted status post sapient #3 prosthetic valve with severe AAS.� Peak/mean gradients 113/66 mmHg. mild TR.� PAP
33 mmHg
Echo 07/17/23: EF 55-60%, stage I diastolic dysfunction, mod MR, well-seated bioprosthetic aortic valve replacement with restricted leaflet motion peak and mean gradients are 63 and 39 mmHg at least moderate bioprosthetic dysfunction, mild AR
Echo 07/23/2023: EF 48%, akinesis of the apical inferoseptal and anteroseptal wall, moderate MR, bioprosthetic aortic valve with peak/mean gradients 56/32 mmHg, mild to moderate TR, estimated PAP 35 to 40 mmHg
Catheterization 07/27/2023
HEMODYNAMICS (mmHg) :
RA (m) : 10
RV (s/d) : 36/2
PA (s/d,m) : 36/60, 24
PCWP (m) : 21
AO (s/d, m) : 90/48, 65
LV (s/d) : 165/10
LVEDP (m) : 20
Estimated Codey Cardiac Output: 4.24 L/min and Cardiac Index: 2.2 L/min/M-2
Systemic vascular resistance: 13 Wood units = 1040 [id number]
Pulmonary vascular resistance: 0.71 Wood units = 57 [id number]
AORTIC VALVE:
Mean Gradient: 58 mmHg
Aortic Valve Area: 0.57 cm2
LEFT VENTRICULOGRAPHY: Left ventriculography was performed in an QUIGLEY projection.� The digital single-plane left ventricular ejection fraction is visually estimated at 40-45% with anterolateral apical and inferoapical hypokinesis noted
CONCLUSION
1.� Nonselective angiography with patent LM proximal LAD and proximal circumflex.
2.� Recurring bioprosthetic valve stenosis with very complex history of redo redo redo AVR and redo sternotomy x 2 including root replacement and re-anastomosis of coronary arteries.� The SVG-LAD is 100% occluded.
Plan:
Catheterization on 07/27/2023 was very difficult to evaluate vein graft to LAD which may be occluded
Options for medical therapy are limited as unable to get Plavix given interaction with Prozac
Discussed with patient in detail
Records will be sent to Dr. Mcginnis's office and patient will be given copy of CD of echo and cath
He will make follow-up visit with Dr. Mcginnis but options may be limited
Change Lopressor to Toprol
Will bridge with Lovenox
INRs managed by [facility] using a home monitor with an outpatient INR goal of 2-3. Warfarin on hold while on heparin.
Eventual RIK inhibitor as renal function has normalized
We will resume Lasix 40 mg daily. Pulmonary capital wedge pressure was 21 on 07/27
Discussed with primary service and patient in detail
Dr. Mcginnis's office was contacted and information given to schedule appointment for patient
Total time 45 minutes including more than half the time spent explaining diagnosis, prognosis, and treatment option
HPI: Patient came to [facility] yesterday with SOB and hypoxia, he is now admitted with influenza and cardiology is consulted for NSTEMI. Patient lives with his daughter and grandchildren and everyone in the home was sick with URI symptoms, but he had
progressive SOB and called 911 yesterday and when paramedics arrived he was hypoxic with an initial pulse ox 89% on RA. Patient was started on oxygen in [facility] and tested positive for influenza. He had WHIT with Cre up to 1.5 on admission, but
improving with IVFs overnight. His outpatient dose of Lasix is on hold as well. Patient complains of chest pain with cough and ECG with LBBB that appears to be overall newer since about 01/2023. Initial Troponin was 0.157 and is up to 34.9 this
morning. Chest pain only with cough. He reports breathing is better. He was started on Tamiflu.
Progress Note - Dialysis Technician
Subjective
Date of Service: July 28, 2023
No complaints. Wants to go home
Objective
Labs:
07/28/23 06:56
07/28/23 06:56
Labs
Hgb 10.4 g/dL (13.0-18.0) L 07/28/23 06:56
Hct 31.0 % (39.0-52.0) L 07/28/23 06:56
Plt Count 154 10^3/uL (130-400) 07/28/23 06:56
PT 17.1 Sec (11.4-14.6) H 07/28/23 06:56
INR 1.42 07/28/23 06:56
APTT 82.2 Sec (23.4-35.0) H 07/28/23 06:56
Sodium 136 mmol/L (135-145) 07/28/23 06:56
Potassium 4.4 mmol/L (3.5-5.1) 07/28/23 06:56
BUN 26 mg/dl (9-20) H 07/28/23 06:56
Creatinine 1.1 mg/dL (0.7-1.3) 07/28/23 06:56
Glucose 124 mg/dl (70-99) H 07/28/23 06:56
Vital Signs and I&O:
Vital Signs
Temp Pulse Resp BP Pulse Ox
98.2 F 67 16 117/72 97
07/28/23 08:29 07/28/23 08:29 07/28/23 08:29 07/28/23 08:29 07/28/23 08:29
Vital Signs
Temp Pulse Resp BP Pulse Ox
98.2 F 67 16 117/72 97
07/28/23 08:29 07/28/23 08:29 07/28/23 08:29 07/28/23 08:29 07/28/23 08:29
Intake & Output
07/26/23 07/27/23 07/28/23 02/21/24
06:59 06:59 06:59 06:59
Intake Total 480 / 480 1164 / 1164 1575 / 1575
Output Total 1200 / 1200 1050 / 1050
Balance 480 / 480 -36 / -36 525 / 525
Physical Exam
Physical Exam
General: Well developed, well nourished in NAD.
.
[2023-07-28 11:02] VITALS: BP 124/65; PULSE 77; O2SAT 97
[2023-07-28 11:04] VITALS: BP 124/65; PULSE 77; O2SAT 97
--- NOTE | 2023-07-28 12:58 | CM ---
Addendum entered by Evy Morrison 07/28/23 14:25:
Lovenox available at [facility], patient updated.
Patient accepted by [facility].
[facility]

Original Note:
Patient for d/c home today.
Plan Lovenox to Coumadin bridging, monitor with home monitor.
IMM review and signed.
TC to [facility], no Lovenox currently in stock.
TC to [id number].
Patient had [facility] at home in the past.
Referral placed.
[2023-07-28 12:59] LABS: Glucose - Point of Care 95 mg/dl (70-99)
[2023-07-28 13:00] LABS: APTT 68.5 Sec (23.4-35.0)
[2023-07-28 13:04] VITALS: BP 124/65
[2023-07-28] MEDS: TOPROL XL 50 MG PO (13:06)
--- NOTE | 2023-07-28 13:19 | W.DCSUMMARY ---
Discharge Summary
Discharge Data
Date of Admission: 07/22/23
Date of Discharge: 07/28/23
-
Pending Results: No
Hospital Course
Principal Diagnosis:
Sepsis on admission due to Influenza and community-acquired pneumonia
Troponin Elevation due to non-ST elevation myocardial infarction (NSTEMI)
Chronic Diagnoses:�
Aortic valve replacement x 3 (most recent in 2020 at [place] [facility])
Chronic kidney disease stage III
Paroxysmal atrial fibrillation/A flutter on Coumadin
Heart failure with preserved ejection fraction
Essential Hypertension
Stroke in 2020
Coronary artery disease status post bypass surgery 2017
Insulin-dependent diabetes
Consultations:�
Cardiology
Procedures:�
Cardiac cath 07/27/23:�noted recurring bioprosthetic valve stenosis with very complex history of redo redo redo AVR and redo sternotomy x 2 including root replacement and re-anastomosis of coronary arteries.�The SVG-LAD is 100% occluded.
Clinical course:�
This is a 72-year-old man with past medical history as stated above, who presented with cough, fever/chills and body aches for 1-2 days.�
He was also noted to be hypoxic at 85% on room air.
Problem 1:
Sepsis POA�due to Influenza and CAP.
This was associated with acute hypoxic respiratory insufficiency, which has resolved.
He received renally dose Tamiflu for 5 days while in the hospital.
His CXR noted bilateral patchy pneumonia and his procalcitonin was elevated at 0.47.
He received ceftriaxone and doxycycline for 5 days during his hospital stay for the pneumonia.
He was weaned back to room air during his hospital stay.
Problem 2:
Troponin Elevation due to NSTEMI.
His troponin peaked at 39 this admission.
His updated echo this admission 07/23/23 noted now wall�motion abnormality with akinesis of the apical inferior septum and anterior septal wall.�EF is mildly depressed at 48%.�No significant change in aortic valve gradients which were previously
measured at 63 and 39 mmHg.
He underwent cardiac cath 07/27, which note recurring bioprosthetic valve stenosis with very complex history of redo redo redo AVR and redo sternotomy x 2 including root replacement and re-anastomosis of coronary arteries.�The SVG-LAD is 100%
occluded.
The patient refused any surgical intervention, he is not a great candidate anyway.
He can continue with his prior to admission aspirin and Lasix, and follow-up with cardiology outpatient.
As for the rest of his medical problems, they were stable during his hospital stay.
Discharge Plan
-
Patient Disposition: Home (Routine Discharge)
Discharge Diagnosis/Procedures: Sepsis due to Influenza and community pneumonia on admission; [id number] myocardial infarction status post cardiac catheterization (Recurring bioprosthetic valve stenosis with very complex history of redo redo
redo AVR and redo sternotomy x 2 including root replacement and re-anastomosis of coronary arteries. The SVG-LAD is 100% occluded.)
Condition: Fair
Diet: As tolerated, Low Fat, Low Cholesterol and Low Sodium
Activity: As tolerated
Driving Restrictions: As prior to admission
Blood Work: BMP in 1 week, daily INR check
Others Tests: repeat chest X-ray with your PCP in 4 weeks for your pneumonia
Stop these medications:: avoid NSAID such as ibuprofen due to your heart condition.
Activity Restrictions/Additional Instructions:
continue Lovenox to Coumadin with daily INR checks via your home monitor until INR > 2. Please call [facility] daily with INR results!!!
Stand Alone Forms: DC Instructions- Cath/EP Lab
Referrals:
Jesus Alberto Mcginnis MD [Non-Admitting Privileges] - (Dr. Mcginnis's office to call you to schedule appointment. )
Asim Cr DO [Family Provider] -
Karyn Montgomery PA-C [Specified Professional Personl] - 08/19/23 2:20 pm (Cardiology followup appointment)
Prescriptions:
New
enoxaparin [Lovenox] 80 mg/0.8 mL syringe
80 mg SC Q12H Qty: 8 1RF
Continued
furosemide 20 MG tablet
20 mg PO DAILY
Rx Instructions:
07/22/2023, take with 40 mg for a total of 60 mg.
cetirizine [Zyrtec] 10 MG tablet
10 mg PO DAILY
fenofibrate nanocrystallized 145 MG tablet
145 mg PO DAILY
fluoxetine 20 mg capsule
20 mg PO DAILY
Rx Instructions:
07/22/2023, take with 40 mg for a total of 60 mg.
furosemide 40 mg Tablet
40 mg PO DAILY
Rx Instructions:
07/22/2023, take with 20 mg for a total of 60 mg.
insulin lispro [Humalog KwikPen Insulin] 100 unit/mL Insulin Pen
0 sliding scale dose SC DIRECTED
Patient Comments:
07/22/2023, pt. is unsure of sliding scale but states that the amount of units he injects depends on what he eats.
insulin lispro [Humalog KwikPen Insulin] 100 unit/mL Insulin Pen
10 unit SC DAILY
albuterol sulfate 90 mcg/actuation Hfa Aerosol Inhaler
2 puff INHALATION R Q4HPRN PRN (Reason: SOB)
fluoxetine 40 mg Capsule
40 mg PO DAILY
Rx Instructions:
07/22/2023, take with 20 mg for a total of 60 mg.
atorvastatin 80 mg Tablet
80 mg PO DAILY
sennosides [Senokot] 8.6 mg Tablet
17.2 mg PO DAILY
aspirin 81 mg Tablet,Delayed Release (Dr/Ec)
81 mg PO DAILY
warfarin 2 mg Tablet
2 mg PO DAILY
Rx Instructions:
07/22/2023, take with 1 mg for a total of 3 mg.
metoprolol succinate 25 mg Tablet Extended Release 24 Hr
25 mg PO DAILY
warfarin 1 mg Tablet
1 mg PO DAILY
Rx Instructions:
07/22/2023, take with 2 mg for a total of 3 mg.
insulin glargine [Lantus Solostar U-100 Insulin] 100 unit/mL (3 mL) Insulin Pen
15 unit SC HS
magnesium citrate 125 mg Capsule
250 mg PO Q48H@0800
Discontinued
ibuprofen [Advil Liqui-Gel] 200 mg Capsule
200 mg PO BIDPRN PRN (Reason: mild pain)
Discharge Orders:
Discharge Patient (As Directed); Ordered 07/28/23
Ordered By: Mony Chery
[2023-07-28] MEDS: LOVENOX 80 MG SC (16:26)
--- NOTE | 2023-07-28 16:30 | PTCARENOTE ---
Rn flow reserves clerk. Patient cleared for d/c. Patient provided with teaching sheets for ACS, and lovenox information package. Patient transported to d/c lounge via w/c.
--- NOTE | 2023-07-28 17:15 | PN.CDI ---
CDI
- -
CDI:
Physician Documentation Request
Admit Date: 07/22/23 22:21
Dear Doctor Vik,
Hospitalist progress notes report 'HFpEF'
Cardiology progress notes state '12/06/20 EF 55-60%...Echo 07/17/23 EF 55-60%... Echo 07/23/23 EF 48 % '
[facility] ventriculography EF is reported as 40-45%
Please clarify the type and acuity of heart failure:
Type Acuity
Systolic Acute
Diastolic Chronic
Combined Systolic/Diastolic Acute on Chronic
Other
Use of terms such as suspected, likely, concern for, or probable (associated with a specific diagnosis that is being evaluated, monitored, or treated as if it exists) are acceptable and can be coded in the inpatient setting, when documented at the
time of discharge.
Thank you,
Shilpi Wright RN, BSN
CDI Specialist
tiger text
Please use your independent medical judgment in providing your response.
--- NOTE | 2023-07-28 17:21 | PN.CDI ---
CDI
- -
CDI:
Physician Documentation Request
Admit Date: 07/22/23 22:21
Dear Doctor Vik,
Hospitalist progress notes state ' sepsis due to influenza and CAP'
Please clarify the relationship between these conditions:
Yes, pneumonia is related to/associated with/due to influenza
No, pneumonia is not related to/associated with/due to influenza
Unable to determine
Use of terms such as suspected, likely, concern for, or probable (associated with a specific diagnosis that is being evaluated, monitored, or treated as if it exists) are acceptable and can be coded in the inpatient setting, when documented at the
time of discharge.
Thank you,
Shilpi Wright RN, BSN
CDI Specialist
tiger text
Please use your independent medical judgment in providing your response.
--- NOTE | 2023-07-28 17:23 | PN.CDI ---
CDI
- -
CDI:
Physician Documentation Request
Admit Date: 07/22/23 22:21
Dear Doctor Vik,
Patient admitted with sepsis due to influenza and CAP.
07/22 lactic acid resulted as 2.3
Please clarify which of the following most accurately describes the status of the patient's infection:
Sepsis only
Severe Sepsis
Other
Use of terms such as suspected, likely, concern for, or probable (associated with a specific diagnosis that is being evaluated, monitored, or treated as if it exists) are acceptable and can be coded in the inpatient setting, when documented at the
time of discharge.
Thank you,
Shilpi Wright RN, BSN
CDI Specialist
tiger text
Please use your independent medical judgment in providing your response.
--- NOTE | 2023-07-28 17:26 | PN.CDI ---
CDI
- -
CDI:
Physician Documentation Request
Admit Date: 07/22/23 22:21
Dear Doctor Vik,
Progress notes state patient has CKD 3.
Creatinine resulted as follows:
Laboratory Tests
07/22/23 07/23/23 07/24/23
18:36 05:54 07:13
Creatinine 1.5 H 1.3 1.1
07/25/23 07/26/23 07/28/23
05:42 07:05 06:56
Creatinine 1.1 1.0 1.1
Pleaser clarify which of the following accurately represents the patient's renal status on admission:
____ - WHIT on CKD 3
____ - CKD 3 only
____ - Other
Criteria for WHIT*
1 Increase in serum creatinine by > or = to 0.3 mg/dL (> or = to 26.5 micromol/L) within 48 hours, OR
2 Increase in serum creatinine to > or = to 1.5 times baseline, which is known or presumed to have occurred within 7 days, OR
3 Urine volume < 0.5 nL/kg/hour for six hours
Use of terms such as suspected, likely, concern for, or probable (associated with a specific diagnosis that is being evaluated, monitored, or treated as if it exists) are acceptable and can be coded in the inpatient setting, when documented at the
time of discharge.
Thank you,
Shilpi Wright RN, BSN
CDI Specialist
tiger text
Please use your independent medical judgment in providing your response.
*Source: Kidney Disease: Improving Global Outcomes (KDIGO) 2012
== END 2023-07-28 16:40 | disposition home health service (06) | DRG 871 ==
LOC: 4 WEST ACU 22:21
PROVIDERS: Internal Medicine; Physician Assistant Medical; ADMITTING PHYSICIAN Student in an Organized Health Care Education/Training Program; ATTENDING PHYSICIAN Internal Medicine; CONSULT PHYSICIAN Internal Medicine Cardiovascular Disease; EMERGENCY PHYSICIAN Emergency Medicine; FAMILY PHYSICIAN Student in an Organized Health Care Education/Training Program
PROC: B2111ZZ Fluoroscopy of Multiple Coronary Arteries using Low Osmolar Contrast (ICD-10-PCS; 2023-07-27)
PROC: B2151ZZ Fluoroscopy of Left Heart using Low Osmolar Contrast (ICD-10-PCS; 2023-07-27)
PROC: 4A023N8 Measurement of Cardiac Sampling and Pressure, Bilateral, Percutaneous Approach (ICD-10-PCS; 2023-07-27)
DX: A41.89 Other specified sepsis (principal); I21.4 Non-ST elevation (NSTEMI) myocardial infarction; J10.00 Influenza due to other identified influenza virus with unspecified type of pneumonia; I13.0 Hypertensive heart and chronic kidney disease with heart failure and stage 1 through stage 4 chronic kidney disease, or unspecified chronic kidney disease; I48.92 Unspecified atrial flutter; E87.1 Hypo-osmolality and hyponatremia; N17.9 Acute kidney failure, unspecified; I50.30 Unspecified diastolic (congestive) heart failure; Z11.52 Encounter for screening for COVID-19; R09.02 Hypoxemia; E86.0 Dehydration; I48.0 Paroxysmal atrial fibrillation; N18.31 Chronic kidney disease, stage 3a; E11.22 Type 2 diabetes mellitus with diabetic chronic kidney disease; E11.65 Type 2 diabetes mellitus with hyperglycemia; F17.200 Nicotine dependence, unspecified, uncomplicated
CPT/HCPCS: 93308; 71046; 80048; 80053; 82962; 83605; 83735; 84145; 84484; 85025; 85027; 85610; 85730; 87040; 87070; 87502; 87811; 93005; 93321; 93325; 93461; 94640; 96360; 97161; 97166; 99285; C1894; Q9967

== ENCOUNTER → 2023-09-09 09:43 | Outpatient (REF) | payer MEDICARE, SELFPAY ==
[2023-09-09 11:46] LABS: ALT (SGPT) 51 U/L (0-50); AST (SGOT) 52 U/L (17-59); Albumin 4.5 g/dl (3.5-5.0); Alkaline Phosphatase 58 U/L (38-126); Blood Urea Nitrogen 44 mg/dl (9-20); Calcium 9.4 mg/dl (8.4-10.2); Carbon Dioxide 26 mmol/L (22-30); Chloride 103 mmol/L (98-107); Glucose 153 mg/dl (70-99); Potassium 4.2 mmol/L (3.5-5.1); Sodium 138 mmol/L (135-145); Total Bilirubin 0.8 mg/dl (0.2-1.3); eGFR 48.55
[2023-09-09 11:50] LABS: Glycohemoglobin (HgbA1c) 6.6 % (4.0-5.6)
== END ==
LOC: REG 09:43
PROVIDERS: ATTENDING PHYSICIAN Internal Medicine Endocrinology, Diabetes & Metabolism; FAMILY PHYSICIAN Student in an Organized Health Care Education/Training Program
DX: E11.65 Type 2 diabetes mellitus with hyperglycemia (principal)
CPT/HCPCS: 36415; 80053; 83036

== ENCOUNTER → 2023-09-10 08:37 | Outpatient (REF) | payer MEDICARE, SELFPAY | LOC: HWRAD 08:37 | PROVIDERS: ATTENDING PHYSICIAN Thoracic Surgery (Cardiothoracic Vascular Surgery); FAMILY PHYSICIAN Student in an Organized Health Care Education/Training Program | DX: I25.10 Atherosclerotic heart disease of native coronary artery without angina pectoris (principal); Z95.2 Presence of prosthetic heart valve; I10 Essential (primary) hypertension | CPT/HCPCS: 71275; Q9967 ==

== ENCOUNTER 2023-11-09 19:53 | Inpatient (IN) | payer MEDICARE, SELFPAY ==
[2023-11-09] VITALS (10 sets, daily range): BP systolic 94–131; BP diastolic 49–73; BMI 28.6; BMI 27.5
[2023-11-09 13:11] LABS: % Basophils 0.5 % (0-2); % Eosinophils 2.4 % (0-6); % Immature Granulocytes 0.2 % (0-0.5); % Lymphocytes 13.7 % (20.5-51.1); % Monocytes 7.3 % (1.7-9.3); % Neutrophils 75.9 % (42.2-75.2); Absolute Eosinophils 0.2 10^3/uL (0-0.7); Absolute Lymphocytes 1.1 10^3/uL (1.2-3.4); Absolute Monocytes 0.6 10^3/uL (0.1-0.6); Absolute Neutrophils 6.1 10^3/uL (1.4-6.5); Hematocrit 37.4 % (39.0-52.0); Hemoglobin 12.7 g/dL (13.0-18.0); Mean Corpuscular Hgb 30.8 pg (27.0-31.0); Mean Corpuscular Volume 90.6 fL (80.0-94.0); Mean Platelet Volume 11.4 fL (7.4-10.4); Nucleated Red Blood Cells % 0 % (-); Platelet Count 217 10^3/uL (130-400); Red Blood Cell Count 4.13 10^6/uL (4.70-6.10)
[2023-11-09 13:13] LABS: PT 23.4 Sec (11.4-14.6)
[2023-11-09 13:21] LABS: ALT (SGPT) 31 U/L (0-50); AST (SGOT) 33 U/L (17-59); Albumin 4.5 g/dl (3.5-5.0); Alkaline Phosphatase 46 U/L (38-126); Blood Urea Nitrogen 38 mg/dl (9-20); Calcium 9.3 mg/dl (8.4-10.2); Carbon Dioxide 27 mmol/L (22-30); Chloride 101 mmol/L (98-107); Glucose 171 mg/dl (70-99); Potassium 3.7 mmol/L (3.5-5.1); Sodium 140 mmol/L (135-145); Total Protein 7.1 g/dl (6.3-8.2); eGFR 52.74
[2023-11-09 13:33] LABS: Troponin I 0.067 ng/ml
--- NOTE | 2023-11-09 16:41 | ED.GENMED ---
History of Present Illness
General
Chief Complaint: Chest Pain
Source: patient
Exam Limitations: none
Time Seen by Provider: 11/09/23 16:03
Nursing documentation reviewed up to this point in time: agreed with
Travel History
Have you had any contact with someone who has COVID-19?: No
Do you have any symptoms of coronavirus? Fever > 100 degrees, chills, cough, shortness of breath, sore throat, loss of taste or smell, muscle aches, or headache?: No
History of Present Illness
History of Present Illness:
The patient is a 73-year-old man with a past medical history of extensive coronary disease. Patient reports that for months now, his chest pain is gradually getting worse, and coming on more easily. Patient reports that typical daily activities
for him now have become very concerning because they are bringing on symptoms of chest pain or shortness of breath. Patient reports that this past week and has been the worst, and reports that he developed heaviness in his chest with bringing
groceries [place] the hill to his house. Patient states that this is making him feel very depressed and concerned.
Past History
Past History
ED Past Medical History: CAD, HTN, NIDDM and Valvular disease
ED Past Surgical History: Cardiac ([place] valve replacement, CABG)
Social History
Tobacco: Non-smoker
Alcohol: Occasional
Drug: None
Employment: Employed
Family History
Family History: Other (Father with COPD, mother with dementia)
Review of Systems
Review of Systems
Allergies reviewed?: Yes
All Other Systems: ROS reviewed and negative except as documented in HPI and ROS
Constitutional: Reports no symptoms
EENT: Reports no symptoms
Respiratory: Reports trouble breathing
Cardiac: Reports chest pain
ABD/GI: Reports no symptoms
: Reports no symptoms
Musculoskeletal: Reports no symptoms
Skin: Reports no symptoms
Neurological: Reports no symptoms
Endocrine: Reports no symptoms
Hematologic/Lymphatic: Reports no symptoms
Psychiatric: Reports no symptoms
Phy Exam
Physical Exam
Physical Exam:
Physical Exam
General: no apparent distress, not acutely ill. Comfortable appearing
Neck: supple. no meningeal signs. normal psoterior pharynx
Heart: s1/s2 regular rate and rhythm, no murmur. equal radial pulses.
Lungs: no acute respiratory distress. clear bilaterally
Abdomen: normal bowel sounds. not tender. no CVAT
Neuro: alert and oriented. no focal neurological deficits
Skin: no rash
Psychiatric: well kept. interactive and cooperative
Extremities: no edema. no calf tenderness. negative homans. good distal pulses
Scores
Heart Score for Chest Pain Patients
STEMI patient?: No
History: Moderately Suspicious
ECG: Nonspecific Repolarization
Age: >/= 65 years
Risk Factors: >/= 3 Risk Factors or History of CAD
Troponin: >1 - <3 x Normal Limit
Heart Score for Chest Pain Patients: 7
Heart Score Risk: 72.7 % MACE over next 6 weeks
Course
Orders/Labs/Results
Orders:
Orders
11/09/23 12:25
EKG [Electrocardiogram (*1)] Stat
Reason for Study: Chest Pain
EKG- Treatment ONCE
11/09/23 12:50
Complete Blood Count/With Diff Urgent
Comprehensive Metabolic Panel Urgent
PT/INR [Prothrombin Time] Urgent
Troponin I Urgent
11/09/23 15:44
Electrocardiogram (*1) Urgent
Reason for Study: Chest Pain
EKG- Treatment ONCE
11/09/23 15:53
Troponin I Urgent
11/09/23 18:01
Aspirin Chewable [Low Strength Aspirin] 324 mg PO NOW STA
Nitroglycerin Ointment [Nitro-Bid] 1 inch TOPICAL NOW STA
11/09/23 18:02
Tetanus/Diphth/Acelpertussis [Adacel] 0.5 ml IM .ONCE ONE
11/09/23 18:25
Admit/Transfer Patient As Directed
Co-Sign Provider:
Level of Care: Inpatient admission
Assign to:: Telemetry
Physician / Group: susan srinivasan
Diagnosis: chest jake
Reason for Telemetry: Chest Pain syndromes
Date to Stop Telemetry: 11/11/23
Time to Stop Telemetry: 11:00
Reason for Hospitalization: chest pain
Expected length of stay greater than two midnights?: Yes
ELOS- Estimated Length of Stay in days: 3
I certify the patient meets the requirements for IP care: Yes
11/09/23 18:26
Code Status As Directed
Resuscitation Status: Full Code
11/09/23 20:16
Albuterol [ProAIR HFA INHALER] 2 puff INH R Q4HPRN PRN
Dextrose 50%-Water [Dextrose 50% Syringe] 12.5 grams IV [id number] PRN
Glucagon [GlucaGen] 1 mg IM PRN PRN
11/09/23 20:16
CARDIOLOGY CONSULT Routine
Consulting Provider: Kerwin Billy
Was physician already notified: Yes
Activity As Directed
Activity Level: As Tolerated
Bedside Glucose Monitoring As Directed
Frequency: AC&HS
Additional Instructions:: Change to q6h if pt on TPN, tube feeding or not eating
INT (Intravenous Needle Therapy) As Directed
Comment: maintain peripheral IV access
Intake/ Output As Directed
Frequency: Per unit guidelines
Vital Signs As Directed
Frequency: q4h
Weight As Directed
Frequency: Daily
Pt Eval And Treat Routine
Activity Level: As Tolerated
11/09/23 21:16
Glycohemoglobin (HgbA1c) Routine
Troponin I Q3H
Comment: at admit & Q3H for 3 total including ED draws, obtain ECG with each level
11/09/23 22:00
insulin glargine [Lantus Solostar U-100 Insulin] 15 unit SC HS
11/10/23 00:00
Troponin I Q3H
Comment: at admit & Q3H for 3 total including ED draws, obtain ECG with each level
11/10/23 06:00
Basic Metabolic Panel IN AM
Cardiovascular Evaluation IN AM
Complete Blood Count/No Diff IN AM
Glycohemoglobin (HgbA1c) IN AM
PT/INR [Prothrombin Time] IN AM
11/10/23 07:30
Insulin Aspart Corrective Low [Novolog Flexpen-Low Resistance] See Protocol SC AC
11/10/23 08:00
Aspirin Low Dose EC [Aspir Low (Enteric Coated)] 81 mg PO DAILY
Atorvastatin [Lipitor] 80 mg PO DAILY
Diphenhydramine [Benadryl] 25 mg PO DAILY
Fenofibrate 145 [Tricor] 145 mg PO DAILY
Fluoxetine HCl [Prozac] 60 mg PO DAILY
Furosemide [Lasix] 60 mg PO DAILY
Insulin Aspart Pen [Novolog Flexpen] 10 units SC DAILY
Metoprolol Xl [Toprol Xl] 25 mg PO DAILY
Sennosides [Senokot] 17.2 mg PO DAILY
11/10/23 18:00
Warfarin [Coumadin] 3 mg PO QPM
11/11/23 06:00
Basic Metabolic Panel IN AM
Complete Blood Count/No Diff IN AM
PT/INR [Prothrombin Time] IN AM
11/11/23 11:00
DC Protocol for Telemetry ONCE
11/12/23 06:00
Basic Metabolic Panel IN AM
Complete Blood Count/No Diff IN AM
PT/INR [Prothrombin Time] IN AM
11/13/23 06:00
Basic Metabolic Panel IN AM
Complete Blood Count/No Diff IN AM
PT/INR [Prothrombin Time] IN AM
11/14/23 06:00
Basic Metabolic Panel IN AM
Complete Blood Count/No Diff IN AM
PT/INR [Prothrombin Time] IN AM
Abnormal Lab Results
11/09/23 11/09/23
12:50 15:53
RBC 4.13 L 10^6/uL
(4.70-6.10)
Hgb 12.7 L g/dL
(13.0-18.0)
Hct 37.4 L %
(39.0-52.0)
MPV 11.4 H fL
(7.4-10.4)
Absolute Lymphs (auto) 1.1 L 10^3/uL
(1.2-3.4)
Neutrophils % 75.9 H %
(42.2-75.2)
Lymphocytes % 13.7 L %
(20.5-51.1)
PT 23.4 H Sec
(11.4-14.6)
BUN 38 H mg/dl
(9-20)
Creatinine 1.4 H mg/dL
(0.7-1.3)
Glucose 171 H mg/dl
(70-99)
Troponin I 0.067 H* ng/ml 0.078 H* ng/ml
11/09/23 12:50
11/09/23 12:50
Vital Signs
Initial and Last Documented VS:
Initial Vital Signs
Temp Pulse Resp BP Pulse Ox
98.2 F 61 16 131/66 98
11/09/23 12:38 11/09/23 12:38 11/09/23 12:38 11/09/23 12:38 11/09/23 12:38
Last Documented Vital Signs
Temp Pulse Resp BP Pulse Ox
98.2 F 66 18 96/59 95
11/09/23 12:38 11/09/23 21:30 11/09/23 21:15 11/09/23 21:13 11/09/23 21:30
MDM/Problems Addressed
Differential Diagnosis Includes:
Acute SD, unstable angina, PE, pneumonia
MDM/Problems Addressed:
Patient presents with acute on chronic chest pain
Chronic conditions affecting care: CAD
Acute Exacerbation and/or Progression of Chronic Illness:
Patient likely has acute coronary syndrome which represents progression of his coronary artery disease
Acute Exacerbation and/or Progression of Chronic Illness: CAD
*Pulse Oximetry
Patient hypoxic: no
*EKG
Interpreted by ED Provider?: Yes
Interpretation: abnormal
Comparison EKG: changes noted
Rate: normal
Rhythm: other (Atrial paced)
[place]: right axis deviation
Interval: other
QRS Pattern: wide non-specific
Ischemia: non-specific ST changes
*Telephone Quotation Clerk Interpretation
Rate: normal
Interpretation: normal
Rhythm: sinus
*Critical Care Note
Total Time (30-74mins, 75-104mins- exclusive of procedures): Not Applicable
Data Reviewed
Review of Other/Old Records Reveals: Operative Reports (Magnetic Tape Typewriter Operator report reviewed from July [address] Cordero which showed complex disease)
Patient Management
Social determinants of health affecting care: Living situation and Strong social support
Discussion with other providers: Hospitalist and Other (Dr Kerwin Duarte from cardiology made aware of patient being admitted)
ED Attending Note
-
Portions of this chart may have been created with voice recognition software.� Occasional wrong word or��sound alike� substitutions may have occurred due to the inherent limitations of voice recognition software.
Discharge Plan
Departure
Patient Disposition: Admit
Date of Disposition: 11/09/23
Time of Disposition: 16:44
Admit to: Telemetry
Presentation/result/management discussed w/ accepting MD/DO: Hospitalist
Patient with high blood pressure during this ER visit?: Yes
Condition: Good
Covid-19: Not Applicable
Discharge Problem:
Chest pain in adult, Elevated troponin
Interventions
Interventions:
*Risk Screen - Suicide Last Done: 11/09/23 18:48
*General Assessment Last Done: 11/09/23 18:48
*Neglect/Abuse Screening Last Done: 11/09/23 18:48
ED- Fall Risk Assessment Last Done: 11/09/23 18:48
*ED COVID-19 Vaccine History Last Done: 11/09/23 12:38
*Nursing Disposition Last Done: 11/09/23 22:12
ED- Cardiac Assessment Last Done: 11/09/23 18:48
Discharge Date and Time
Discharge Date/Time: 11/09/23 22:14
[2023-11-09 16:46] LABS: Troponin I 0.078 ng/ml
--- NOTE | 2023-11-09 16:58 | HPS.HSE ---
Family Physician
-
Family Physician: Asim Cr, DO
Chief Complaint
-
chest pain
sob
History of Present Illness
73-year-old man with a past medical history of extensive coronary disease, type 2 diabetes, asthma, A-fib, sick sinus syndrome, hypertension, CVA, hyperlipidemia, bradycardia, pacemaker presented to us with left-sided chest pain associated with
shortness of breath with exertion for past 2 months. Chest pain and shortness of breath progressively got worse. Now worse with mild activity as well. He was evaluated by cardiology 3 weeks ago. Patient not able to push a grocery cart. He
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 Patient is very depressed as he is not able to do anything due to short of breath and chest pain. Patient denied any headache, dizziness, syncopal episode. Patient denied runny nose, congestion, cough. Patient
denied fever or chills. Patient denied abdominal pain, nausea, vomiting or diarrhea. Patient denied dysuria hematuria.
Troponin elevated in ER. Admitting for further management
Medical History
Past Medical History
Past Medical History: Reports Other
Additional Past Medical History:
Type 2 diabetes
Psoriasis
bilateral lower extremity edema
Coronary artery disease
Stenosis of aortic valve
Asthma
prosthetic valve dysfunction
Sick sinus syndrome
Hypertension
Hyperlipidemia
Bradycardia
Pacemaker
A-fib
Past Surgical History: Reports Other
Additional Past Surgical History:
TVAR
Coronary artery bypass graft
Pacemaker
Right wrist surgery
Left hernia repair
Aortic valve second replacement
Aortic root reconstruction and left main coronary reconstruction
Cardiac stent
Right radius ORIF
Social History
Tobacco: Other (Smokes pot at night)
Alcohol: None
Drug: None
Personal:
Living: With Family
Family History
Family History: Not pertinent
Allergies / Home Medications
Allergies reflects when Allergies were last updated in [facility].
Home Medications with original date entered in [facility]
Allergy/Medication List:
Allergies
Allergy/AdvReac Type Severity Reaction Status Date / Time
No Known Allergies Allergy Verified 11/09/23 12:40
Home Medications
furosemide 20 mg tablet 60 mg PO DAILY Fluid retention/Swelling 07/03/20
fenofibrate nanocrystallized 145 mg tablet 145 mg PO DAILY High cholesterol 12/28/20
fluoxetine 20 mg capsule 60 mg PO DAILY Depression 06/29/22
albuterol sulfate 90 mcg/actuation aerosol inhaler 2 puff inhalation R Q4HPRN PRN SOB 07/08/22
insulin lispro 100 unit/mL subcutaneous pen (Humalog KwikPen (U-100) Insulin) 0 sliding scale dose SC BID@1200,1700 Diabetes 07/08/22
insulin lispro 100 unit/mL subcutaneous pen (Humalog KwikPen (U-100) Insulin) 10 unit SC DAILY Diabetes 07/08/22
aspirin 81 mg tablet,delayed release 81 mg PO DAILY Blood Clot Prevention/Tx 07/22/23
atorvastatin 80 mg tablet 80 mg PO DAILY High Cholesterol 07/22/23
insulin glargine 100 unit/mL (3 mL) subcutaneous pen (Lantus Solostar U-100 Insulin) 15 unit SC HS Diabetes 07/22/23
metoprolol succinate 25 mg tablet,extended release 24 hr 25 mg PO DAILY Blood Pressure 07/22/23
sennosides 8.6 mg tablet (Senokot) 17.2 mg PO DAILY Constipation 07/22/23
warfarin 1 mg tablet 3 mg PO DAILY Blood Clot Prevention/Tx 07/22/23
diphenhydramine HCl 25 mg capsule (Benadryl) 25 mg PO DAILY 11/09/23
Review of Systems
-
Constitutional: Reports No Symptoms
EENT: Reports No Symptoms
Respiratory: Reports Trouble Breathing
Cardiac: Reports Chest Pain
Abdomen/GI: Reports No Symptoms
: Reports No Symptoms
Musculoskeletal: Reports No Symptoms
Skin: Reports No Symptoms
Neurological: Reports No Symptoms
Endocrine: Reports No Symptoms
Hematologic/Lymphatic: Reports No Symptoms
Psych: Reports No Symptoms
Physical Exam
Vital Signs
Vital Signs
Temp Pulse Resp BP Pulse Ox
98.2 F 61 16 131/66 98
11/09/23 12:38 11/09/23 12:38 11/09/23 12:38 11/09/23 12:38 11/09/23 12:38
Physical Exam
General: Well Developed, Well Nourished and No Apparent Distress
HEENT: NormoCephalic, Moist mucous membranes and Atraumatic
Respiratory: Clear
Cardiac: S1/S2 and Regular Rhythm; No Murmur or Rub
GI: Soft, Non Tender, Non Distended and Normal Bowel Sounds; No Organomegaly
Rectal: Deferred by Provider
Musculoskeletal: No Clubbing, No Cyanosis and No Edema
Skin: No Rash
Neuro: AO x 3 and Nonfocal/grossly intact
Psych: Calm
Laboratory Results
-
11/09/23 12:50
11/09/23 12:50
Laboratory Results
PT 23.4 Sec (11.4-14.6) H 11/09/23 12:50
INR 2.10 11/09/23 12:50
Total Bilirubin 1.0 mg/dl (0.2-1.3) 11/09/23 12:50
AST 33 U/L (17-59) 11/09/23 12:50
ALT 31 U/L (0-50) 11/09/23 12:50
Alkaline Phosphatase 46 U/L (38-126) 11/09/23 12:50
Troponin I 0.078 ng/ml H* 11/09/23 15:53
Data Reviewed
-
Lab Data: Labs Reviewed by me
Impression/Plan
-
# Chest pain/short of breath rule out acute coronary syndrome
- Troponin elevated 0.067-0.078
-EKG on arrival paced rhythm
-TTE last week 07/17/23: EF 55-60%, Stage I diastolic dysfunction, moderate bioprosthetic aortic valve dysfunction.�
-Update echo 07/23/23 with now wall�motion abnormality with akinesis of the apical inferior septum and anterior septal wall.�EF is mildly depressed at 48.�No significant change in aortic valve
-s/p cardiac cath 07/27: Recurring bioprosthetic valve stenosis with very complex history of redo redo redo AVR and redo sternotomy x 2 including root replacement and re-anastomosis of coronary arteries.�The SVG-LAD is 100% occluded.
-Aspirin continued
# Chronic anemia
-Hemoglobin 12.7
-No active bleeding
-Continue to monitor
# CKD stage IIIb
-Creatinine 1.4
-Continue to trend
# Paroxysmal atrial fibrillation/aflutter
-Warfarin and metoprolol continued
cardiology on board
-daily PT/INR
# HFpEF
# Moderate MR
# hx Aortic valve replacement x 3
-Lasix continued
#hxt of asthma
-nebs from home continued
# Essential Hypertension
-Metoprolol continued
# CVA 2020
# Coronary artery disease s/p CABG 2018
-PAINTER FOREMAN asprin/statin/metoprolol
#HLD
-fenofibrate continued
# IDDM
-Lispro 10 units daily
-Sliding scale
-Lantus 10 units at bedtime
-Carb controlled diet
# Depression
-Fluoxetine continued
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
FULL CODE
[2023-11-09] MEDS: LOW STRENGTH ASPIRIN 324 MG PO (18:42)
--- NOTE | 2023-11-09 18:48 | W.PN.UPDATE ---
Update Note
Progress Note Update
HPI: 73-year-old man with past medical history of extensive coronary artery disease, type 2 diabetes, asthma, A-fib, sick sinus syndrome, hypertension, CVA, hyperlipidemia, bradycardia, pacemaker; presented with acute on chronic left-sided chest
pain associated with shortness of breath and dyspnea on exertion.
Of note, patient had cardiac cath in July 2023, and at that time he was noted to have 100% occluded SVG-LAD, 100% occluded RCA, recurring bioprosthetic valve stenosis with very complex history of redo redo redo AVR and redo sternotomy x 2
including root replacement and re-anastomosis of coronary arteries.
At that time, passenger vessel chef already informed no good options to treat his CAD.
A/P:
# Acute on chronic chest pain with shortness of breath and dyspnea exertion likely due to known chronic coronary artery disease
# Suspect acute on chronic systolic heart failure
Cont to trend Troponin, elevated from 0.067 to 0.078
EKG paced rhythm
Last echo 07/23/23 noted EF is mildly depressed at 48 %, with now wall�motion abnormality with akinesis of the apical inferior septum and anterior septal wall. No significant change in aortic valve
Cardiac cath 07/27: Recurring bioprosthetic valve stenosis with very complex history of redo redo redo AVR and redo sternotomy x 2 including root replacement and re-anastomosis of coronary arteries.�The SVG-LAD is 100% occluded.
Cont CARGO AGENT Aspirin
Cont CARGO AGENT lasix
Card CS
# CKD stage IIIb
Creatinine 1.4, appears to be at baseline
# Paroxysmal atrial fibrillation/aflutter
On Warfarin due to h/o AVR
Cont CARGO AGENT metoprolol with hold parameter
Daily INR
# hx Aortic valve replacement x 3
Cont CARGO AGENT lasix
# h/o asthma
Cont nebs from home
# Essential Hypertension
Cont CARGO AGENT Metoprolol
# CVA 2020
# Coronary artery disease s/p CABG 2017
Cont CARGO AGENT aspirin/statin/metoprolol
# HLD
statin and fenofibrate
# IDDM
Cont CARGO AGENT insulin: Lispro 10 units daily, Lantus 10 units HS (CARGO AGENT 15 units HS)
ISS
Carb controlled diet
# Depression
Fluoxetine continued
DVT PPx CARGO AGENT Coumadin with daily INR
FULL CODE
[2023-11-09 21:53] LABS: Troponin I 0.083 ng/ml
[2023-11-09 22:59] LABS: Glucose - Point of Care 161 mg/dl (70-99)
[2023-11-09] MEDS: LANTUS 0.149999999999999994 UNITS SC (23:19)
--- NOTE | 2023-11-09 23:31 | PTCARENOTE ---
Receive pt from ER. Pt alert oriented X3, ambulatory, steady, and in no distress. Pt oriented to the room, call barnes within reach. Pt has no complaint of chest pain, or SOB, but admits to dyspnea on exertion. Pt on A-Paced on telemonitor. VSS (T=98,
HR=66, RR=18, BP=97/59, SpO2=98% on RA). Will keep monitoring the pt.
[2023-11-10 00:10] VITALS: BP 94/44
[2023-11-10 01:19] LABS: Troponin I 0.073 ng/ml
[2023-11-10 03:20] VITALS: BP 93/43
[2023-11-10 04:53] LABS: Hematocrit 35.2 % (39.0-52.0); Hemoglobin 11.9 g/dL (13.0-18.0); Mean Corp Hgb Conc. 33.8 g/dL (33.0-37.0); Mean Corpuscular Hgb 30.7 pg (27.0-31.0); Mean Platelet Volume 11.3 fL (7.4-10.4); Platelet Count 180 10^3/uL (130-400); Red Blood Cell Count 3.87 10^6/uL (4.70-6.10); Red Cell Dist. Width 13.9 % (11.5-14.5); White Blood Cell Count 7.8 10^3/uL (4.8-10.8)
[2023-11-10 05:05] LABS: INR 2.23; PT 24.6 Sec (11.4-14.6)
[2023-11-10 05:22] LABS: Blood Urea Nitrogen 37 mg/dl (9-20); Calcium 9.3 mg/dl (8.4-10.2); Carbon Dioxide 31 mmol/L (22-30); Chloride 103 mmol/L (98-107); Estimated Creatinine Clearance 39 ml/min; Glucose 117 mg/dl (70-99); HDL Cholesterol 24 mg/dl; LDL Cholesterol, Calculated 37 mg/dl; Sodium 141 mmol/L (135-145); Total Cholesterol 88 mg/dl (50-199); Triglyceride 137 mg/dl (10-149); Very Low Density Lipoprotein 27 mg/dl (0-30); eGFR 44.93
[2023-11-10 05:29] LABS: Potassium 4.6 mmol/L (3.5-5.1)
--- NOTE | 2023-11-10 06:56 | W.PN.UPDATE ---
Update Note
Progress Note Update
RN asked for diet for pt
PT came to hospital for chest pain.Extensive cardiac hx
Hesitant to order diet until cardiology eval but pt demanding food and will not wait.
will add diabetic diet.
[2023-11-10 07:18] LABS: Glucose - Point of Care 144 mg/dl (70-99)
[2023-11-10 07:30] VITALS: BP 122/65
[2023-11-10] MEDS: TOPROL XL 25 MG PO (07:55)
[2023-11-10] MEDS: BENADRYL 25 MG PO (07:55)
[2023-11-10] MEDS: LASIX 60 MG PO (07:55)
[2023-11-10] MEDS: ASPIR LOW (ENTERIC COATED) 81 MG PO (07:55)
[2023-11-10] MEDS: TRICOR 145 MG PO (07:55)
[2023-11-10] MEDS: PROZAC 60 MG PO (07:55)
[2023-11-10] MEDS: FLUSH (NSS) 1 FLUSH IV (07:56)
[2023-11-10] MEDS: SENOKOT 17.1999999999999993 MG PO (07:56)
[2023-11-10] MEDS: LIPITOR 80 MG PO (07:56)
[2023-11-10] MEDS: NOVOLOG FLEXPEN 10 UNITS SC (07:57)
[2023-11-10 08:56] LABS: Glycohemoglobin (HgbA1c) 6.7 % (4.0-5.6)
[2023-11-10 10:05] VITALS: BMI 27.4
[2023-11-10 10:19] VITALS: BMI 27.4
--- NOTE | 2023-11-10 10:51 | W.PN.HOSP.TC ---
Today's Communication/Plan
-
waiting for cards....
Assessment / Plan
Assessment / Plan
pt is a 73 year old male
Chest pain/short of breath rule out acute coronary syndrome--Troponin elevated peaked at 0.083 and now decreasing--EKG on arrival paced rhythm--TTE 07/17/23: EF 55-60%, Stage I diastolic dysfunction, moderate bioprosthetic aortic valve
dysfunction--Updated echo 07/23/23 with now wall�motion abnormality with akinesis of the apical inferior septum and anterior septal wall.�EF is mildly depressed at 48.�No significant change in aortic valve
-s/p cardiac cath 07/27: Recurring bioprosthetic valve stenosis with very complex history of redo redo redo AVR and redo sternotomy x 2 including root replacement and re-anastomosis of coronary arteries.�The SVG-LAD is 100% occluded--Aspirin
continued--patient stated there is nothing further they can do here he would prefer to follow-up with his cardiac surgeon Dr. Mcginnis as he knows his anatomy, patient also asking about referral to palliative care as outpatient
Chronic anemia--Hemoglobin 12.7--No active bleeding--Continue to monitor
CKD stage IIIb--Creatinine 1.4--Continue to trend
Paroxysmal atrial fibrillation/aflutter--Warfarin and metoprolol continued--daily PT/INR
HFpEF--Moderate MR--hx Aortic valve replacement x 3--Lasix continued--not in exacerbation
hx of asthma--nebs from home continued
Essential Hypertension--Metoprolol continued
CVA 2020
Coronary artery disease s/p CABG 2018--[employer]NA[employer] asprin/statin/metoprolol
HLD-fenofibrate continued
IDDM-Lispro 10 units daily-Sliding scale-Lantus 10 units at bedtime-Carb controlled diet
Depression-Fluoxetine continued
DVT PPx [employer] Coumadin
FULL CODE
Anticipated Discharge: Today
Subjective/Interval History
-
Date of Service: November 10, 2023
pt waiting for cardiology and wants d/c
Objective Data
-
Labs:
Laboratory Results
11/10/23
04:29
WBC 7.8
Hgb 11.9 L
Hct 35.2 L
Plt Count 180
PT 24.6 H
INR 2.23
Sodium 141
Potassium 4.6
Chloride 103
Carbon Dioxide 31 H
BUN 37 H
Creatinine 1.6 H
Glucose 117 H
Calcium 9.3
Vital Signs:
max temp for 24 hours
11/09/23
12:38
Temp 98.2 F
Vital Signs
Temp Pulse Resp BP Pulse Ox
97.8 F 62 18 122/65 97
11/10/23 07:30 11/10/23 07:55 11/10/23 07:30 11/10/23 07:55 11/10/23 07:30
Review of Systems
-
All other systems: Reviewed and negative
Physical Exam
-
General: Well Developed, Well Nourished and No Apparent Distress
HEENT: Normocephalic and Atraumatic
Respiratory: Clear to Auscultation; Negative Wheezes or Rhonchi
Cardiac: Regular Rhythm, S1/S2, Murmur and Other (click)
GI: Soft, Nontender, Nondistended and Normal Bowel Sounds
Musculoskeletal: No Clubbing, No Cyanosis and No Edema
Neuro: Awake and Alert
Psych: Calm
--- NOTE | 2023-11-10 10:55 | CON.CAR ---
Addendum entered and electronically signed by Nishant Brenner MD 11/10/23 13:14:
I saw and examined the patient.
The RESOURCE SPECIALIST or PA's note was reviewed and I agree with the note.
Comment: General: Well developed, well nourished in NAD.
Neck: Supple, no JVD, HJR, carotids +2 B/L, no bruits bilaterally.
Heart: Non displaced PMI, RRR, 2�3/6 basal systolic murmur, No S3, S4, no rubs.
Lungs: Clear to auscultation bilaterally, no wheeze, rhonchi, rubs bilaterally,
normal expiratory phase.
Extremities: No clubbing, cyanosis or edema bilaterally.
Neuro: Grossly nonfocal, awake, alert and oriented x3.
Sanjay has a complex medical history of CAD, severe aortic stenosis with redo redo redo AVR sternotomy x 2 with root replacement and reanastomosis of coronary arteries, type 2 diabetes, asthma, A-fib, sick sinus syndrome status post pacer,
hypertension, CVA, hyperlipidemia. He presented with left-sided chest pain along with shortness of breath and dyspnea on exertion. He has carrying heavy groceries and was also chasing his dog. He denies chest pain or short of breath at the
present time. Troponins were elevated and cardiology consulted
He is a very complex patient. His options have been limited. He has been followed by Dr. Mcginnis at [facility] as his situation was too complex for care at [place]. He wants to go home. I advised him he needs to lead a relatively
sedentary lifestyle. He is considering palliative care. He has follow-up with Dr. Mcginnis. He has a CAT scan of his chest to be done. Will also check echocardiogram prior to visit with Dr. Mcginnis. Discussed with primary service in detail and
okay for discharge.
Original Note:
Consultation
Consultation Request
Date/Time Consultation Requested: 11/09/2023
Date/Time Consultation Performed: 11/10/2023
Requesting Provider: Dr. Jade
Performing Provider: Eleonora Thurston PA-C for Dr. Nishant Brenner
Reason for Consultation: Chest pain
Medical History
-
History of Present Illness:
Patient is a 73-year-old man with past medical history of extensive coronary artery disease, severe aortic stenosis with redo redo redo AVR and sternotomy x 2 with root replacement and re-anastomosis of coronary arteries, type 2 diabetes, asthma,
A-fib, sick sinus syndrome s/p PPM, hypertension, CVA, hyperlipidemia who presented 11/09/2023 with acute on chronic left-sided chest pain associated with shortness of breath and dyspnea on exertion. Patient reports over the weekend he was carrying
heavy groceries in from the car and going up steps when he developed a chest tightness associated with shortness of breath. Chest discomfort resolved several minutes at rest. On day of presentation he reports he was taking his dogs for a walk when
one of them got loose and he had to fawn after him when once again he developed exertional chest discomfort with mild shortness of breath. Chest discomfort also resolved at rest. Given he had 2 episodes in 2 days in a row he decided to come to
the emergency department. Initial troponin was noted to be 0.078. Troponin peaked at 0.083. Cardiology being asked to see patient given chest pain and abnormal troponin. At time of this evaluation patient resting comfortably in bed. He reports
he has had no additional chest discomfort since yesterday. He denies chest pain at rest and only has chest discomfort with moderate and prolonged exertion that resolves at rest. He denies associated dizziness, lightheadedness, palpitations, edema,
orthopnea or PND. He has a very complex cardiac history with recent NSTEMI with troponin peaking at 39.3 in the setting of influenza and pneumonia in July 2023. This prompted him to undergo a cardiac catheterization which demonstrated a new
100% occluded SVG-LAD, 100% known occluded RCA. He was also noted to have progressively worsening aortic valve stenosis of a bioprosthetic valve with very complex history of redo redo redo AVR and redo sternotomy x 2 including root replacement and
re-anastomosis of coronary arteries. At that time, customer service representative already informed no good options to treat his CAD.
PMH:
Aortic stenosis
s/p aortic root homograft at [facility] with Dr. Fuentes 1998
s/p redo sternotomy with aortic root reconstruction, tissue AVR and left main coronary reconstruction at [facility] 2008
s/p TAVR with prosthetic mismatch at 07/01/18
s/p redo sternotomy with tissue AVR due to TAVR prosthetic mismatch and stenosis, s/p SVG to LAD by Dr. Mcginnis at [place] 01/07/21
CAD
s/p LM coronary reconstruction at time of aortic root reconstruction and tiss AVR 2008
s/p 3 mm Promus LEONCIO to LAD 05/2018
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
LAD disease managed by SVG to LAD CABG at time of redo sternotomy and AVR at [place] 01/07/21
NSTEMI 07/22/23 peak troponin 39.3 with occlusion of SVG to LAD for which medical management was recommended
Influenza positive 07/22/23
Paroxysmal typical Aflutter, s/p CV Jan 2020
Chronic warfarin OAC
h/o CVA with left MCA infarct 01/11/21
previously taking Xarelto prior to redo sternotomy and tiss AVR at [place] 01/07/21, then CVA 01/11/21 and seen by Neurosurgery at [place] and they recommended warfarin
Hypertension
DM2
WHIT on CKD 3a
Depression
Former smoker
Former alcohol abuse
Past Medical History
Past Medical History: Other (see HPI)
Past Surgical History: Cardiac (aortic homograft at [facility] 1998, tissue AVR and LM coronary reconstruction at [facility] 2008, LAD stent 2017, s/p PPM) and Other
Social History
Tobacco: Smoker
Alcohol: Occasional
Drug: Marijuana
Living: With Family
Employment: Retired
Family History
Family History: Cancer
Allergies / Home Medications
Allergy/AdvReac Type Severity Reaction Status Date / Time
No Known Allergies Allergy Verified 11/09/23 12:40
�Medication �Instructions �Recorded �Confirmed �Type
furosemide 20 mg tablet 60 mg PO DAILY Fluid 07/03/20 11/09/23 History
retention/Swelling
fenofibrate nanocrystallized 145 145 mg PO DAILY High cholesterol 12/28/20 11/09/23 History
mg tablet
fluoxetine 20 mg capsule 60 mg PO DAILY Depression 06/29/22 11/09/23 History
albuterol sulfate 90 mcg/actuation 2 puff inhalation R Q4HPRN PRN SOB 07/08/22 11/09/23 History
aerosol inhaler
insulin lispro 100 unit/mL 0 sliding scale dose SC 07/08/22 11/09/23 History
subcutaneous pen (Humalog KwikPen BID@1200,1700 Diabetes
(U-100) Insulin)
insulin lispro 100 unit/mL 10 unit SC DAILY Diabetes 07/08/22 11/09/23 History
subcutaneous pen (Humalog KwikPen
(U-100) Insulin)
aspirin 81 mg tablet,delayed 81 mg PO DAILY Blood Clot 07/22/23 11/09/23 History
release Prevention/Tx
atorvastatin 80 mg tablet 80 mg PO DAILY High Cholesterol 07/22/23 11/09/23 History
insulin glargine 100 unit/mL (3 15 unit SC HS Diabetes 07/22/23 11/09/23 History
mL) subcutaneous pen (Lantus
Solostar U-100 Insulin)
metoprolol succinate 25 mg 25 mg PO DAILY Blood Pressure 07/22/23 11/09/23 History
tablet,extended release 24 hr
sennosides 8.6 mg tablet (Senokot) 17.2 mg PO DAILY Constipation 07/22/23 11/09/23 History
warfarin 1 mg tablet 3 mg PO DAILY Blood Clot 07/22/23 11/09/23 History
Prevention/Tx
diphenhydramine HCl 25 mg capsule 25 mg PO DAILY 11/09/23 11/09/23 History
(Benadryl)
Review of Systems
-
History Source: Patient
Physical Exam
Vital Signs
Temp Pulse Resp BP Pulse Ox
97.8 F 62 18 122/65 97
11/10/23 07:30 11/10/23 07:55 11/10/23 07:30 11/10/23 07:55 11/10/23 07:30
GEN: No distress, awake, Ox3, dressed sitting in chair
HEENT: supple, anicteric, mmm
LUNGS: CTA, no wheezes/rales
CV: Reg, S1/S2, 2/6 syst murmur
ABD: soft, BS+, NT/ND
EXT: No edema, clubbing or cyanosis
NEURO: Gross non-focal
SKIN: No rash, warm, dry, pink
Lab Results
11/10/23 04:29
11/10/23 04:29
Troponin I 0.073 ng/ml H* 11/10/23 00:36
Impression / Plan
-
PCP: Dr. Tammie Barrios
Cardiology: Dr. Brenner
Impression:
Presented 11/09/2023 with exertional chest pain/SOB
Mildly abnormal troponin, peak 0.083
Aortic stenosis
s/p aortic root homograft at [facility] with Dr. Fuentes 1998
s/p redo sternotomy with aortic root reconstruction, tissue AVR and left main coronary reconstruction at [facility] 2008
s/p TAVR with prosthetic mismatch at 07/01/18
s/p redo sternotomy with tissue AVR due to TAVR prosthetic mismatch and stenosis, s/p SVG to LAD by Dr. Mcginnis at [place] 01/07/21
CAD
s/p LM coronary reconstruction at time of aortic root reconstruction and tiss AVR 2008
s/p 3 mm Promus LEONCIO to LAD 05/2018
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
LAD disease managed by SVG to LAD CABG at time of redo sternotomy and AVR at [place] 01/07/21
NSTEMI 07/22/23 peak troponin 39.3 with occlusion of SVG to LAD for which medical management was recommended
Influenza positive 07/22/23
Paroxysmal typical Aflutter, s/p CV Jan 2020
Chronic warfarin OAC
h/o CVA with left MCA infarct 01/11/21
previously taking Xarelto prior to redo sternotomy and tiss AVR at [place] 01/07/21, then CVA 01/11/21 and seen by Neurosurgery at [place] and they recommended warfarin
Hypertension
DM2
WHIT on CKD 3a
Depression
Former smoker
Former alcohol abuse
ECHO 12/06/2020: Function; EF 55 to 60%.� Moderate LVH.� Stage II diastolic dysfunction.� Normal RV size and function.� Mildly dilated RA.� Noted status post sapient #3 prosthetic valve with severe AAS.� Peak/mean gradients 113/66 mmHg. mild TR.� PAP
33 mmHg
Echo 07/17/23: EF 55-60%, stage I diastolic dysfunction, mod MR, well-seated bioprosthetic aortic valve replacement with restricted leaflet motion peak and mean gradients are 63 and 39 mmHg at least moderate bioprosthetic dysfunction, mild AR
Echo 07/23/2023: EF 48%, akinesis of the apical inferoseptal and anteroseptal wall, moderate MR, bioprosthetic aortic valve with peak/mean gradients 56/32 mmHg, mild to moderate TR, estimated PAP 35 to 40 mmHg
Catheterization 07/27/2023: HEMODYNAMICS (mmHg) :RA (m) : 10 RV (s/d) : 36/2; PA (s/d,m) : 36/60, 24; PCWP (m) : 21; AO (s/d, m) : 90/48, 65
LV (s/d) : 165/10; LVEDP (m) : 20
Estimated Codey Cardiac Output: 4.24 L/min and Cardiac Index: 2.2 L/min/M-2
Systemic vascular resistance: 13 Wood units = 1040 [id number]
Pulmonary vascular resistance: 0.71 Wood units = 57 [id number]
AORTIC VALVE:
Mean Gradient: 58 mmHg
Aortic Valve Area: 0.57 cm2
LEFT VENTRICULOGRAPHY: Left ventriculography was performed in an QUIGLEY projection.� The digital single-plane left ventricular ejection fraction is visually estimated at 40-45% with anterolateral apical and inferoapical hypokinesis noted
CONCLUSION
1.� Nonselective angiography with patent LM proximal LAD and proximal circumflex.
2.� Recurring bioprosthetic valve stenosis with very complex history of redo redo redo AVR and redo sternotomy x 2 including root replacement and re-anastomosis of coronary arteries.� The SVG-LAD is 100% occluded.
Plan:
-Presented 11/09/2023 with exertional chest discomfort and shortness of breath x 2 on 2 days in a row. Chest pain occurred with moderate exertion and resolved at rest on both occasions
-Patient denies rest chest pain
-EKG demonstrated AV paced rhythm. No arrhythmias are noted on telemetry since admission
-CT of chest negative for dissection or aneurysm
-Initial troponin 0.078, peaked at 0.083. Troponin rather flat and very low considering prior admission for troponin peaked at 39.8.
-Patient has very complex coronary anatomy as detailed above on previous cardiac catheterization. Patient is also being followed by Dr. Mcginnis at [facility] who has performed prior surgeries. Patient would be considered very high risk for redo
coronary intervention. For now continue medical management of his CAD.
-He has progressively worsening aortic stenosis with redo redo redo AVR. Most recent echocardiogram from July 2023 shows peak/mean gradients of 56/32 mmHg. Aortic valve area was estimated to be 0.57 cm� on cardiac catheterization in July
2023. Once again he is considered high risk redo. Could consider TAVR at [facility] with Dr. Mcginnis. We will recheck an echocardiogram to reassess his aortic valve gradients to see if they are progressing. Patient is requesting to go home
and we will arrange for this to be done as outpatient. Echo arranged for 11/24/2023
-Continue high-dose atorvastatin. Most recent lipids done this admission TC 88, HDL 24, LDL 37, triglycerides 137 are at goal. Hemoglobin A1c 6.8%
-INR therapeutic at 2.23
-History of dual-chamber pacemaker with AV paced rhythm.
-After discussion with patient he is considering palliative care consultation given he is high risk for coronary intervention and aortic valve procedures.
Patient is a 73-year-old man with past medical history of extensive coronary artery disease, severe aortic stenosis with redo redo redo AVR and sternotomy x 2 with root replacement and re-anastomosis of coronary arteries, type 2 diabetes, asthma,
A-fib, sick sinus syndrome s/p PPM, hypertension, CVA, hyperlipidemia who presented 11/09/2023 with acute on chronic left-sided chest pain associated with shortness of breath and dyspnea on exertion. Patient reports over the weekend he was carrying
heavy groceries in from the car and going up steps when he developed a chest tightness associated with shortness of breath. Chest discomfort resolved several minutes at rest. On day of presentation he reports he was taking his dogs for a walk when
one of them got loose and he had to fawn after him when once again he developed exertional chest discomfort with mild shortness of breath. Chest discomfort also resolved at rest. Given he had 2 episodes in 2 days in a row he decided to come to
the emergency department. Initial troponin was noted to be 0.078. Troponin peaked at 0.083. Cardiology being asked to see patient given chest pain and abnormal troponin. At time of this evaluation patient resting comfortably in bed. He reports
he has had no additional chest discomfort since yesterday. He denies chest pain at rest and only has chest discomfort with moderate and prolonged exertion that resolves at rest. He denies associated dizziness, lightheadedness, palpitations, edema,
orthopnea or PND. He has a very complex cardiac history with recent NSTEMI with troponin peaking at 39.3 in the setting of influenza and pneumonia in July 2023. This prompted him to undergo a cardiac catheterization which demonstrated a new
100% occluded SVG-LAD, 100% known occluded RCA. He was also noted to have progressively worsening aortic valve stenosis of a bioprosthetic valve with very complex history of redo redo redo AVR and redo sternotomy x 2 including root replacement and
re-anastomosis of coronary arteries. At that time, customer service representative already informed no good options to treat his CAD.
Data Reviewed
-
EKG: Report Reviewed by me, Discussed with Physician, Discussed with Nurse and Discussed with Patient
CT Scan: Report Reviewed by me, Discussed with Physician and Discussed with Patient
Labs: Labs Reviewed by me, Discussed with Physician, Discussed with Patient and Discussed with Family
Old Records: Reviewed
--- NOTE | 2023-11-10 11:00 | CM ---
Addendum entered by Violeta Rainey 11/10/23 16:24:
fax [phone]
Original Note:
Patient seen at bedside. Patient lives with in 2 ranch style home. Patient has ramp/stairs to entrance. Patient PCP is Dr. Lemos and uses the [facility] [address]. Patient stated that he was interested in Palliative care referral and he will be
followed with Dr. Mcginnis. Patient lives with and several grandchildren. Patient stated he refuses to ever go to SNF, but would like to review options with Palliative care will send referral to [facility] palliative care. CM will continue to follow
for discharge planning needs.
Plan; home with referral to Palliative care
--- NOTE | 2023-11-10 11:37 | PTOTSP ---
Patient with good insight into safety with transfers, ambulation and elevations. Does not demonstrate need for continued therapy at this time and will be discharged from case load. If needs change, please re-consult.
[2023-11-10 11:48] VITALS: BP 109/60
--- NOTE | 2023-11-10 16:29 | W.DCSUMMARY ---
Discharge Summary
Discharge Data
Date of Admission: 11/09/23
Date of Discharge: 11/10/23
-
Pending Results: No
Hospital Course
Primary care physician : Asim Cr
Principal Discharge diagnosis : Chest pain
Chronic Discharge diagnosis : anemia of chronic disease, chronic kidney disease stage IIIb, paroxysmal atrial fibrillation/flutter, chronic diastolic congestive heart failure with preserved ejection fraction not in exacerbation, history of asthma,
essential hypertension, stroke, coronary artery disease status post CABG and valve replacement with redo, hyperlipidemia, type 2 diabetes mellitus, depression
Hospital Course : Patient was a 73-year-old male with a extensive history for coronary disease, bypass surgery, valve replacement with redo, type 2 diabetes etc. who presented with shortness of breath on exertion for the past 2 months. Chest pain
and shortness of breath progressively has gotten worse. He was evaluated by cardiology 3 weeks prior. Patient stated on the Thursday prior to admission he was not able to push a grocery cart and could not take the groceries in due to chest pain and
shortness of breath. Patient was admitted.
Problem #1: Chest pain. Patient has a complex cardiac history including severe aortic stenosis with 3 redo's. He describes symptoms consistent with coronary ischemia. Troponins were checked and were mildly elevated, 0.067 on admission to a peak
of 0.083 followed by a decline to 0.073. Unfortunately, patient has no surgical options here. He has been referred to Dr. Mcginnis at [facility]. Since his troponins are down trending, there is no reason to keep him in the hospital.
He is asked for a referral to palliative care. He was advised by cardiology to lead a sedentary lifestyle.
Problem #2: All other medical issues. These include anemia of chronic disease, chronic kidney disease stage IIIb, paroxysmal atrial fibrillation/flutter, chronic diastolic congestive heart failure with preserved ejection fraction not in
exacerbation, history of asthma, essential hypertension, stroke, coronary artery disease status post CABG and valve replacement with redo, hyperlipidemia, type 2 diabetes mellitus, depression. These medical issues were stable during his
hospitalization. Medications were continued as able.
He has been cleared for discharge home by cardiology. If there are any questions regarding this dictation or his hospital stay, please not hesitate to call. Our office number is [phone].
Discharge Plan
-
Patient Disposition: Home (Routine Discharge)
Discharge Diagnosis/Procedures: Chest pain with troponin elevation and symptoms, chronic anemia, chronic kidney disease stage IIIb, paroxysmal atrial fibrillation/flutter, history of diastolic congestive heart failure without exacerbation, history
of asthma, essential hypertension, coronary artery disease status post bypass surgery, stroke, hyperlipidemia, type 2 diabetes mellitus insulin requiring, depression
Condition: Good
Diet: Low Cholesterol and Diabetic, Carb Controlled
Activity: As tolerated
Driving Restrictions: As prior to admission
Bathing Restrictions: None
Others Tests: You have an echocardiogram scheduled on November 23 at 7:20 AM at [facility]. If you are unable to make this appointment please call [phone] to reschedule
Referrals:
Asim Cr, DO [Family Provider] - in less than 1 week
Prescriptions:
Continued
furosemide 20 MG tablet
60 mg PO DAILY
fenofibrate nanocrystallized 145 MG tablet
145 mg PO DAILY
fluoxetine 20 mg capsule
60 mg PO DAILY
insulin lispro [Humalog KwikPen Insulin] 100 unit/mL Insulin Pen
0 sliding scale dose SC BID@1200,1700
Patient Comments:
07/22/2023, pt. is unsure of sliding scale but states that the amount of units he injects depends on what he eats.
insulin lispro [Humalog KwikPen Insulin] 100 unit/mL Insulin Pen
10 unit SC DAILY
albuterol sulfate 90 mcg/actuation Hfa Aerosol Inhaler
2 puff INHALATION R Q4HPRN PRN (Reason: SOB)
atorvastatin 80 mg Tablet
80 mg PO DAILY
sennosides [Senokot] 8.6 mg Tablet
17.2 mg PO DAILY
aspirin 81 mg Tablet,Delayed Release (Dr/Ec)
81 mg PO DAILY
metoprolol succinate 25 mg Tablet Extended Release 24 Hr
25 mg PO DAILY
warfarin 1 mg Tablet
3 mg PO DAILY
insulin glargine [Lantus Solostar U-100 Insulin] 100 unit/mL (3 mL) Insulin Pen
15 unit SC HS
diphenhydramine HCl [Benadryl] 25 mg Capsule
25 mg PO DAILY Qty: 0 0RF
Discharge Orders:
Discharge Patient (As Directed); Ordered 11/10/23
Ordered By: Grace Jade
Discharge Date and Time
Discharge Date/Time: 11/10/23 13:00
Print Language: FRENCH
== END 2023-11-10 13:00 | disposition home or self-care (01) | DRG 311 ==
LOC: 4 EAST ACU 19:53
PROVIDERS: Emergency Medicine; Registered Nurse; ADMITTING PHYSICIAN Internal Medicine; ATTENDING PHYSICIAN Internal Medicine; EMERGENCY PHYSICIAN Emergency Medicine; FAMILY PHYSICIAN Student in an Organized Health Care Education/Training Program; OTHER PHYSICIAN Internal Medicine Cardiovascular Disease
DX: I24.9 Acute ischemic heart disease, unspecified (principal); I48.92 Unspecified atrial flutter; I13.0 Hypertensive heart and chronic kidney disease with heart failure and stage 1 through stage 4 chronic kidney disease, or unspecified chronic kidney disease; I50.32 Chronic diastolic (congestive) heart failure; I25.810 Atherosclerosis of coronary artery bypass graft(s) without angina pectoris; I25.10 Atherosclerotic heart disease of native coronary artery without angina pectoris; J45.909 Unspecified asthma, uncomplicated; E78.00 Pure hypercholesterolemia, unspecified; I48.0 Paroxysmal atrial fibrillation; L40.9 Psoriasis, unspecified; D63.1 Anemia in chronic kidney disease; N18.32 Chronic kidney disease, stage 3b; E11.22 Type 2 diabetes mellitus with diabetic chronic kidney disease; F32.A Depression, unspecified; I25.82 Chronic total occlusion of coronary artery; R77.8 Other specified abnormalities of plasma proteins; G89.29 Other chronic pain; I25.2 Old myocardial infarction; Z79.01 Long term (current) use of anticoagulants; Z79.4 Long term (current) use of insulin; Z79.82 Long term (current) use of aspirin; Z79.899 Other long term (current) drug therapy; Z86.73 Personal history of transient ischemic attack (TIA), and cerebral infarction without residual deficits; Z95.0 Presence of cardiac pacemaker; Z95.1 Presence of aortocoronary bypass graft; Z95.3 Presence of xenogenic heart valve; Z95.5 Presence of coronary angioplasty implant and graft
CPT/HCPCS: 80048; 80053; 80061; 82962; 83036; 84484; 85025; 85027; 85610; 93005; 97116; 97162; 99285

== ENCOUNTER → 2023-11-24 07:10 | Outpatient (REF) | payer MEDICARE, SELFPAY ==
[2023-11-24 10:22] LABS: Hematocrit 36.4 % (39.0-52.0); Hemoglobin 11.8 g/dL (13.0-18.0); Mean Corp Hgb Conc. 32.4 g/dL (33.0-37.0); Mean Corpuscular Volume 92.6 fL (80.0-94.0); Mean Platelet Volume 11.8 fL (7.4-10.4); Platelet Count 248 10^3/uL (130-400); Red Blood Cell Count 3.93 10^6/uL (4.70-6.10); Red Cell Dist. Width 14.1 % (11.5-14.5); White Blood Cell Count 7.2 10^3/uL (4.8-10.8)
[2023-11-24 10:57] LABS: Blood Urea Nitrogen 36 mg/dl (9-20); Calcium 9.5 mg/dl (8.4-10.2); Carbon Dioxide 26 mmol/L (22-30); Chloride 104 mmol/L (98-107); Glucose 100 mg/dl (70-99); Potassium 4.2 mmol/L (3.5-5.1); Sodium 140 mmol/L (135-145); eGFR 52.74
[2023-11-24 11:18] LABS: TSH 0.81 uIU/ml (0.47-4.68)
[2023-11-24 11:54] LABS: Glycohemoglobin (HgbA1c) 6.5 % (4.0-5.6)
== END ==
LOC: RCS 07:10
PROVIDERS: ATTENDING PHYSICIAN Internal Medicine Cardiovascular Disease; FAMILY PHYSICIAN Student in an Organized Health Care Education/Training Program
DX: Z95.2 Presence of prosthetic heart valve (principal); Z09 Encounter for follow-up examination after completed treatment for conditions other than malignant neoplasm; Z95.1 Presence of aortocoronary bypass graft; F41.9 Anxiety disorder, unspecified; R06.09 Other forms of dyspnea; F41.0 Panic disorder [episodic paroxysmal anxiety]
CPT/HCPCS: 36415; 80048; 83036; 84443; 85027; 93306

== ENCOUNTER 2024-01-03 12:02 | Inpatient (IN) | payer MEDICARE, SELFPAY ==
[2024-01-03] VITALS (14 sets, daily range): BP systolic 89–141; BP diastolic 58–82; BMI 29.0; BMI 27.5
[2024-01-03 07:15] LABS: % Basophils 0.8 % (0-2); % Eosinophils 8.8 % (0-6); % Immature Granulocytes 0.4 % (0-0.5); % Lymphocytes 9.9 % (20.5-51.1); % Monocytes 7.2 % (1.7-9.3); % Neutrophils 72.9 % (42.2-75.2); Absolute Basophils 0.1 10^3/uL (0-0.2); Absolute Eosinophils 0.7 10^3/uL (0-0.7); Absolute Lymphocytes 0.8 10^3/uL (1.2-3.4); Absolute Monocytes 0.6 10^3/uL (0.1-0.6); Absolute Neutrophils 5.8 10^3/uL (1.4-6.5); Hematocrit 35.2 % (39.0-52.0); Hemoglobin 11.5 g/dL (13.0-18.0); Mean Corp Hgb Conc. 32.7 g/dL (33.0-37.0); Mean Corpuscular Hgb 30.6 pg (27.0-31.0); Mean Corpuscular Volume 93.6 fL (80.0-94.0); Nucleated Red Blood Cells % 0 % (-); Platelet Count 183 10^3/uL (130-400); Red Blood Cell Count 3.76 10^6/uL (4.70-6.10); Red Cell Dist. Width 15.9 % (11.5-14.5)
[2024-01-03 07:30] LABS: INR 1.38; PT 16.8 Sec (11.4-14.6)
[2024-01-03 07:31] LABS: APTT 35.5 Sec (23.4-35.0)
[2024-01-03 07:33] LABS: ALT (SGPT) 76 U/L (0-50); AST (SGOT) 75 U/L (17-59); Albumin 3.9 g/dl (3.5-5.0); Alkaline Phosphatase 74 U/L (38-126); Blood Urea Nitrogen 49 mg/dl (9-20); Calcium 9.1 mg/dl (8.4-10.2); Carbon Dioxide 28 mmol/L (22-30); Chloride 105 mmol/L (98-107); Estimated Creatinine Clearance 36 ml/min; Glucose 210 mg/dl (70-99); Potassium 4.2 mmol/L (3.5-5.1); Sodium 140 mmol/L (135-145); Total Bilirubin 0.8 mg/dl (0.2-1.3); eGFR 41.78
[2024-01-03 07:46] LABS: NT-proBNP 16900 pg/ml; Troponin I 0.131 ng/ml
--- NOTE | 2024-01-03 08:10 | ED.GENMED ---
History of Present Illness
General
Chief Complaint: Breathing Problem
Source: patient
Exam Limitations: none
Time Seen by Provider: 01/03/24 07:13
Nursing documentation reviewed up to this point in time: agreed with
History of Present Illness
History of Present Illness:
Patient is a 73-year-old male with a very complex cardiac history including paroxysmal A-fib/a flutter on Eliquis, chronic diastolic congestive heart failure with a preserved EF, previous CAD status post CABG, multiple aortic valve repairs, most
recent in 2021 with a TAVR from a physician at 10
Presents for 6+ weeks of ongoing dyspnea on exertion, difficulty laying flat, about a 6 pound weight gain in the last week or 2 despite taking his 60 mg of daily Lasix. Patient says with exertion he will get short of breath and a pain in his chest
that does resolve when he rests.
He says he is also had a cough that is become productive even with blood-tinged sputum. He never has large-volume hemoptysis or clots but is becoming more frequent. He does not see a supervisor warping department or have any chronic lung conditions. Patient has
not had a fever or chills during this last 6 weeks. Patient says over the last couple of weeks has become increasingly difficult to do very simple tasks even around his house. This morning he went to let his dogs out and became so winded with some
chest discomfort that he had to stop and this is what prompted him to come in today. Patient apparently has had a echocardiogram in November showing that he has LV ejection fraction was 37% with global hypokinesis. He also has a severely dilated left
atrium mild mitral regurg, mild aortic regurg'
He has been to see Dr. 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
Past History
Past History
ED Past Medical History: CAD, HTN, NIDDM and Valvular disease
ED Past Surgical History: Cardiac ([place] valve replacement, CABG)
Social History
Tobacco: Non-smoker
Alcohol: Occasional
Drug: None
Employment: Employed
Family History
Family History: Other (Father with COPD, mother with dementia)
Phy Exam
Physical Exam
Physical Exam:
GENERAL: Alert , in no apparent distress
EYE: pupils equal and reactive
NECK: Supple
ENT: o/p clr, mmm.
CARDIAC: Regular rate and rhythm .+murmur
LUNGS: crackles b/l bases, no acute respiratory distress, +cough, not productive while i was in room no wheezes/rales/rhonchi
ABDOMEN: Soft, without focal tenderness, no r/g, no cvat, normal bowel sounds
NEUROLOGICAL: Alert and oriented, no focal neuro deficits
SKIN: Warm and dry, skin intact.
MUSCULOSKELETAL: trace edema, well perfused. neg catie's sign
PSYCH: Normal and appropriate interaction.
Scores
Heart Failure Risk
Heart Failure Risk Score: Not Applicable
Course
Orders/Labs/Results
Orders:
Orders
01/03/24 07:01
Electrocardiogram (*1) Urgent
Reason for Study: Shortness of Breath
CR Chest - 2 Views Urgent
Comment:
Reason For Exam: shortness of breath
01/03/24 07:02
EKG- Treatment ONCE
01/03/24 07:03
Complete Blood Count/With Diff Urgent
Comprehensive Metabolic Panel Urgent
PTT Urgent
Pro-BNP [NT-proBNP] Urgent
Prothrombin Time Urgent
Troponin I Urgent
01/03/24 08:20
Furosemide [Lasix] 40 mg IV ONCE ONE
01/03/24 08:22
Furosemide [Lasix] 60 mg IV NOW STA
01/03/24 08:28
Furosemide [Lasix] 40 mg IV NOW STA
01/03/24 08:32
Heparin 4,000 units IV NOW STA
Pharmacy Request to Place See Dose Instructions PO NOW STA
Discontinue all Active Warfarin orders?: Yes
Nursing to Place Non Medication Order As Directed
Physician Order: PTT 6 hours after initial start of Heparin infusion
Above order entered?: Yes
01/03/24 08:45
Heparin 89797 Units/250 ml 25,000 units in 250 ml IV PER PROTOCOL
Weight to be used for heparin protocol in kilograms (kg):: 83.8
Protocol:: Cardiac Tx/Acute Coronary
PTT Goal Range to be used:: PTT 73 to 111 seconds
Order type:: Initial
INITIAL Infusion Dose (UNITS/KG/hr) & then follow protocol:: 12 units/kg/hr
Infusion Dose in UNITS/hr & then follow protocol (UNITS/hr):: 1,000
INFUSION RATE in mL/hr & then follow protocol (mL/hr):: 10
PTT less than or equal to 64 seconds:: Increase rate by 200 units/hr (+ 2 mL/hr)
PTT 64.1 to 72.9 seconds:: Increase rate by 100 units/hr (+ 1 mL/hr)
PTT 73 to 111 seconds:: Target Range. No change in rate.
PTT 111.1 to 130.9 seconds:: Decrease rate by 100 units/hr (- 1 mL/hr)
PTT 131 to 199.9 seconds:: HOLD for 1 hr. Then decrease rate by 200 units/hr (- 2 mL/hr)
PTT greater than or equal to 200 seconds:: HOLD for 2 hrs & Notify Provider. Then decrease by 200 units/hr (-
2 mL/hr)
Lab follow-up:: Each change, PTT q6h until 2 consecutive are therapeutic. Then PTT
daily.
01/03/24 09:[address] See Dose Instructions IV DIRECTED
01/03/24 09:14
Sputum Culture [Respiratory Culture/Gram Stain] Urgent
WINTER Source: Sputum
Specimen Description:
Date Specimen was Collected: 01/03/24
Time Specimen was Collected: 09:12
01/03/24 15:00
PTT Urgent
Abnormal Lab Results
01/03/24
07:03
RBC 3.76 L 10^6/uL
(4.70-6.10)
Hgb 11.5 L g/dL
(13.0-18.0)
Hct 35.2 L %
(39.0-52.0)
MCHC 32.7 L g/dL
(33.0-37.0)
RDW 15.9 H %
(11.5-14.5)
MPV 11.0 H fL
(7.4-10.4)
Absolute Lymphs (auto) 0.8 L 10^3/uL
(1.2-3.4)
Lymphocytes % 9.9 L %
(20.5-51.1)
Eosinophils % 8.8 H %
(0-6)
PT 16.8 H Sec
(11.4-14.6)
APTT 35.5 H Sec
(23.4-35.0)
BUN 49 H mg/dl
(9-20)
Creatinine 1.7 H mg/dL
(0.7-1.3)
Glucose 210 H mg/dl
(70-99)
AST 75 H U/L
(17-59)
ALT 76 H U/L
(0-50)
Troponin I 0.131 H* ng/ml
Total Protein 6.0 L g/dl
(6.3-8.2)
01/03/24 07:03
01/03/24 07:03
Vital Signs
Initial and Last Documented VS:
Initial Vital Signs
Pulse Resp Pulse Ox
72 17 95
01/03/24 07:04 01/03/24 07:04 01/03/24 07:04
Last Documented Vital Signs
Temp Pulse Resp BP Pulse Ox
97.6 F 82 16 100/65 97
01/03/24 07:15 01/03/24 08:29 01/03/24 07:45 01/03/24 08:29 01/03/24 07:45
MDM/Problems Addressed
Differential Diagnosis Includes:
stable angina, chf,
MDM/Problems Addressed:
alanna sr 73 y/o M complicated cardiac history, justine
CABG remotely, multiple AVR last was 2020 tavr
PAF on eliquis but s/p pacer
chf on lasix 60
6weeks LYNN with chest discomfort; now with simple activity; small amount of weight gain, minimal edema; cough with some blood tinged sputum sometimes
bp 110s/60s, hr 60s; paced ekg with 1 new T wave inv v6
mild edema in legs trace, b/l crackles lungs; occ cough no wheezing, no dyspnea or cp at rest; dyspnea moderate with walk to bathroom
bnp 16k, trop 0.1 (previous 0.07, h/o ckd)
no cp currently
cxr mild effusion R base,cardiomegaly
d/w wiener from cards, heparinizing and getting lasix;
*Critical Care Note
Total Time (30-74mins, 75-104mins- exclusive of procedures): Not Applicable
ED Attending Note
-
Portions of this chart may have been created with voice recognition software.� Occasional wrong word or��sound alike� substitutions may have occurred due to the inherent limitations of voice recognition software.
Discharge Plan
Departure
Patient Disposition: Admit
Date of Disposition: 01/03/24
Time of Disposition: 08:21
Admit to: Telemetry
Presentation/result/management discussed w/ accepting MD/DO: Hospitalist
Condition: Fair
Covid-19: Not Applicable
Discharge Problem:
CHF (congestive heart failure), Stable angina
Prescriptions:
No Action
furosemide 20 MG tablet
60 mg PO DAILY
fenofibrate nanocrystallized 145 MG tablet
145 mg PO DAILY
fluoxetine 20 mg capsule
60 mg PO DAILY
insulin lispro [Humalog KwikPen Insulin] 100 unit/mL Insulin Pen
0 sliding scale dose SC BID@1200,1700
Patient Comments:
07/22/2023, pt. is unsure of sliding scale but states that the amount of units he injects depends on what he eats.
insulin lispro [Humalog KwikPen Insulin] 100 unit/mL Insulin Pen
10 unit SC DAILY
albuterol sulfate 90 mcg/actuation Hfa Aerosol Inhaler
2 puff INHALATION R Q4HPRN PRN (Reason: SOB)
atorvastatin 80 mg Tablet
80 mg PO DAILY
sennosides [Senokot] 8.6 mg Tablet
17.2 mg PO DAILY
aspirin 81 mg Tablet,Delayed Release (Dr/Ec)
81 mg PO DAILY
metoprolol succinate 25 mg Tablet Extended Release 24 Hr
25 mg PO DAILY
insulin glargine [Lantus Solostar U-100 Insulin] 100 unit/mL (3 mL) Insulin Pen
15 unit SC HS
diphenhydramine HCl [Benadryl] 25 mg Capsule
25 mg PO DAILY Qty: 0 0RF
Eliquis 5 mg Tablet
5 mg PO DAILY
trazodone 50 mg Tablet
50 mg PO HS
Referrals:
Asim Cr DO [Family Provider] -
Interventions
Interventions:
*Risk Screen - Suicide Last Done: 01/03/24 07:15
*General Assessment Last Done: 01/03/24 07:15
*Neglect/Abuse Screening Last Done: 01/03/24 07:15
ED- Fall Risk Assessment Last Done: 01/03/24 07:15
*ED COVID-19 Vaccine History Last Done: 01/03/24 07:15
ED- Cardiac Assessment Last Done: 01/03/24 07:15
ED- Pulmonary Assessment Last Done: 01/03/24 07:15
Discharge Date and Time
Print Language: IRISH
[2024-01-03] MEDS: LASIX 40 MG IV ×2 (08:29→15:03)
[2024-01-03] MEDS: HEPARIN 25000 UNITS/250 ML IV (08:50)
[2024-01-03] MEDS: HEPARIN 4000 UNITS IV (08:58)
--- NOTE | 2024-01-03 09:49 | EDRN ---
silk blocker currently at the pts bedside speaking with the pt
--- NOTE | 2024-01-03 10:41 | HPS.HSE ---
Family Physician
-
Family Physician: Asim Cr, DO
Chief Complaint
-
Difficulty breathing with coughing up blood
History of Present Illness
Patient is a 73-year-old male with a history of coronary artery disease, bypass surgery, aortic valve replacement with multiple revisions, and type 2 diabetes mellitus who presented to the emergency department with multiple weeks of difficulty
breathing and coughing up blood. Morning of his presentation he went to let his dogs out became so winded chest discomfort he had to stop his walk short. Patient stated that his difficulty breathing has been ongoing for multiple weeks and he has
been coughing up blood that is crimson in color. The color of the sputum is crimson colored in the morning and becomes clear throughout the day. He is unable to lay down while sleeping and requires a recliner in order to get rest. States that he
stopped taking his fenofibrate and Coumadin. Reasons for discontinuing these medications are [id number] issues and he believes that they inhibit him from living his best life. Patient stated that he had an echocardiogram conducted in November
that showed a left ventricular ejection fraction that was approximately 37% with global hypokinesis. He also has a severely dilated left atrium with mild mitral regurgitation, and mild aortic regurgitation. He was scheduled to see Dr. Morris
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 Patient was admitted to [facility].
Medical History
Past Medical History
Past Medical History: Reports Arrhythmia, Asthma, CAD, CHF, HTN (Essential hypertension), Hypercholesterolemia, NIDDM and Valvular Disease
Additional Past Medical History:
Aortic and mitral valve
Past Surgical History: Reports Cardiac
Additional Past Surgical History:
Multiple open heart surgery.
Social History
Tobacco: Non-smoker
Alcohol: Former (Used to drink occasionally)
Drug: None
Personal:
Living: With Family
Employment: Not Employed
Family History
Family History: CAD and Hypertension
Allergies / Home Medications
Allergies reflects when Allergies were last updated in [employer].
Home Medications with original date entered in [employer]
Allergy/Medication List:
Allergies
Allergy/AdvReac Type Severity Reaction Status Date / Time
No Known Allergies Allergy Verified 11/09/23 12:40
Home Medications
furosemide 20 mg tablet 60 mg PO DAILY Fluid retention/Swelling 07/03/20
fenofibrate nanocrystallized 145 mg tablet 145 mg PO DAILY High cholesterol 12/28/20
fluoxetine 20 mg capsule 60 mg PO DAILY Depression 06/29/22
albuterol sulfate 90 mcg/actuation aerosol inhaler 2 puff inhalation R Q4HPRN PRN SOB 07/08/22
insulin lispro 100 unit/mL subcutaneous pen (Humalog KwikPen (U-100) Insulin) 0 sliding scale dose SC BID@1200,1700 Diabetes 07/08/22
insulin lispro 100 unit/mL subcutaneous pen (Humalog KwikPen (U-100) Insulin) 10 unit SC DAILY Diabetes 07/08/22
aspirin 81 mg tablet,delayed release 81 mg PO DAILY Blood Clot Prevention/Tx 07/22/23
atorvastatin 80 mg tablet 80 mg PO DAILY High Cholesterol 07/22/23
insulin glargine 100 unit/mL (3 mL) subcutaneous pen (Lantus Solostar U-100 Insulin) 15 unit SC HS Diabetes 07/22/23
metoprolol succinate 25 mg tablet,extended release 24 hr 25 mg PO DAILY Blood Pressure 07/22/23
sennosides 8.6 mg tablet (Senokot) 17.2 mg PO DAILY Constipation 07/22/23
diphenhydramine HCl 25 mg capsule (Benadryl) 25 mg PO DAILY Allergies #0 caps 11/10/23
apixaban 5 mg tablet (Eliquis) 5 mg PO DAILY 01/03/24
trazodone 50 mg tablet 50 mg PO HS 01/03/24
Review of Systems
-
History Source: Patient
A 12 point ROS was completed and negative except as noted: Yes
Constitutional: Reports See HPI
EENT: Reports No Symptoms
Respiratory: Reports See HPI, Cough, Hemoptysis and Trouble Breathing
Cardiac: Reports See HPI
Abdomen/GI: Reports No Symptoms
: Reports No Symptoms
Musculoskeletal: Reports No Symptoms
Skin: Reports No Symptoms
Neurological: Reports No Symptoms
Endocrine: Reports No Symptoms
Hematologic/Lymphatic: Reports No Symptoms
Physical Exam
Vital Signs
Vital Signs
Temp Pulse Resp BP Pulse Ox
98.5 F 86 16 141/82 96
01/03/24 10:33 01/03/24 10:33 01/03/24 10:33 01/03/24 10:33 01/03/24 10:33
Physical Exam
General: Well Developed, Well Nourished, Conversant and Other (Difficulty speaking due to persistent cough)
HEENT: NormoCephalic, Anicteric, Moist mucous membranes and Atraumatic
Respiratory: Crackles (Crackles bilaterally at lung bases)
Cardiac: S1/S2 and Regular Rhythm
Breast: Deferred by me
GI: Soft, Non Tender, Non Distended and Normal Bowel Sounds
Rectal: Deferred by Provider
Genito-urinary: Deferred by me
Musculoskeletal: Edema, Left Lower Extremity (1+) and Edema, Right Lower Extremity (1+)
Skin: Warm and Dry
Neuro: Nonfocal/grossly intact
Psych: Calm
Laboratory Results
-
01/03/24 07:03
01/03/24 07:03
Laboratory Results
PT 16.8 Sec (11.4-14.6) H 01/03/24 07:03
INR 1.38 01/03/24 07:03
APTT 35.5 Sec (23.4-35.0) H 01/03/24 07:03
Total Bilirubin 0.8 mg/dl (0.2-1.3) 01/03/24 07:03
AST 75 U/L (17-59) H 01/03/24 07:03
ALT 76 U/L (0-50) H 01/03/24 07:03
Alkaline Phosphatase 74 U/L (38-126) 01/03/24 07:03
Troponin I 0.131 ng/ml H* 01/03/24 07:03
Impression/Plan
-
- Persistent cough with red sputum: Monitoring
Sputum is yellowish with some blood-tinged to it. Patient stated sometimes philip blood is present.
Possible acute bronchitis�add doxycycline
Pulmonary consult to rule out chronic lung disease
-Complex cardiac history of CAD:
Cardiology to follow
Started on IV Lasix 40 mg twice daily
Follow I&O's
-Type II diabetes mellitus:
Continue Lantus and add sliding scale insulin
Holding morning 10 units of nutritional insulin for now, currently on low sliding scale
-Essential hypertension:
Continue with home medications
Data:
EKG on 01/03/2024:
Nonspecific intraventricular block
Left ventricular hypertrophy with repolarization abnormality
Chest x-ray on 01/03/2024:
Small left pleural effusion. Borderline pulmonary interstitial edema with background of mild chronic interstitial changes
--- NOTE | 2024-01-03 11:58 | W.PN.UPDATE ---
Update Note
Progress Note Update
I personally performed a history and physical exam of the patient and discussed management with the resident. I reviewed the resident's note and agree with the documented findings and plan of care HPI/CC.
Patient with significant complex cardiac history of CAD, severe arctic stenosis status post redo AVR, A-fib on anticoagulation, sick sinus syndrome status post pacer and the other medical condition as listed by resident presents with 6 weeks of
progressive shortness of breath initially with exertion now with minimal exertion. Does not see much of significant weight gain in the legs but is very orthopneic. Due to his symptoms I think he had an outpatient echocardiogram done on November 23 by
his mat man showed change in EF with decreased to 37%. Currently his bilateral lower zone crackles with chest x-ray raising concern for pulmonary venous congestion. BNP is also significantly elevated. Clinical concern is for acute on
chronic heart failure with reduced EF. Admit to hospital. Start on IV Lasix 40 mg twice daily. Obtain a cardiology consultation. Follow I&O's.
He also complains of cough which has been ongoing for few weeks. Productive mucoid to yellow with some blood in it. Blood is intermittent. Sometimes philip blood sometimes dark. No blebs or clots. He was on Coumadin till 2 weeks and was switched
to Eliquis. Denies Primary pulmonary issues of bronchiectasis or COPD/emphysema. His chest x-ray shows no infiltrates or bronchiectasis but does comment about mild chronic interstitial changes. CT angio chest from September this year shows Minimal
reticular interstitial thickening is seen at each lung base, suggestive of mild interstitial fibrosis. Small paraseptal blebs are seen bilaterally.
Chest with crackles as above but no wheeze.
Possible acute bronchitis - add doxycycline; chronic by sputum. Consulted pulmonary to rule out any relation to chronic lung disease. cardiology plan is to keep him on IV heparin.
DM - Continue Lantus. Add sliding scale insulin. Hold a.m. 10 units of nutritional insulin for now.
HTN - cw meds
Full code
[2024-01-03 13:24] LABS: Glucose - Point of Care 226 mg/dl (70-99)
[2024-01-03 14:11] LABS: APTT 86.6 Sec (23.4-35.0)
--- NOTE | 2024-01-03 14:20 | CON.PUL ---
Consultation
Consultation Request
Date/Time Consultation Requested: 01/03/2024-2:15 PM
Date/Time Consultation Performed: 01/03/2024-15 p.m.
Requesting Provider: Hospitalist-Dr. Portillo
Performing Provider: Dr. Heard
Reason for Consultation: Shortness of breath
Medical History
-
Chief Complaint: Shortness of breath
History of Present Illness:
73-year-old male with a history of CAD, CABG, AVR with multiple revisions, diabetes as well as asthma presents with shortness of breath and hemoptysis-pulmonary consulted for shortness of breath and hemoptysis 01/03/2024. He states at home he had
some chills. Has had some hemoptysis as well. He has 3-year-old grandchild who lives at home who is a 'Walter dish'. He has increased dyspnea exertion but no chest pain, chest tightness, abdominal pain, nausea, or increased leg swelling.
Past Medical History
Past Medical History: None (Hypertension. Hyperlipidemia. Atrial fibrillation on Eliquis. Asthma. CAD. CHF reduced EF. AVR/MVR with reduced.)
Social History
Tobacco: Former Smoker
Alcohol: Former
Drug: None and Marijuana
Living: With Family
Occupational Exposures: No known asbestos exposure
Environmental Exposures: No known tuberculosis exposure
Family History
Family History: Other (CAD and hypertension and cancer)
Allergies / Home Medications
Allergies
Allergy/AdvReac Type Severity Reaction Status Date / Time
No Known Allergies Allergy Verified 11/09/23 12:40
Home Medications
�Medication �Instructions �Recorded �Confirmed �Last Taken �Type
furosemide 20 mg tablet 20 mg PO DAILY Fluid 07/03/20 01/03/24 01/02/24 History
retention/Swelling
fluoxetine 20 mg capsule 20 mg PO DAILY Depression 06/29/22 01/03/24 01/02/24 History
albuterol sulfate 90 mcg/actuation 2 puff inhalation R Q4HPRN PRN SOB 01/01/03/24 01/03/24 History
aerosol inhaler
insulin lispro 100 unit/mL 0 sliding scale dose SC 07/08/22 01/03/24 07/07/22 18:00 History
subcutaneous pen (Humalog KwikPen BID@1200,1700 Diabetes
(U-100) Insulin)
insulin lispro 100 unit/mL 10 unit SC DAILY Diabetes 07/08/22 01/03/24 11/09/23 History
subcutaneous pen (Humalog KwikPen
(U-100) Insulin)
aspirin 81 mg tablet,delayed 81 mg PO DAILY Blood Clot 07/22/23 01/03/24 01/03/24 History
release Prevention/Tx
atorvastatin 80 mg tablet 80 mg PO DAILY High Cholesterol 07/22/23 01/03/24 01/02/24 History
insulin glargine 100 unit/mL (3 15 unit SC HS Diabetes 07/22/23 01/03/24 01/02/24 History
mL) subcutaneous pen (Lantus
Solostar U-100 Insulin)
metoprolol succinate 25 mg 25 mg PO DAILY Blood Pressure 07/22/23 01/03/24 01/02/24 History
tablet,extended release 24 hr
sennosides 8.6 mg tablet (Senokot) 17.2 mg PO DAILY Constipation 07/22/23 01/03/24 01/02/24 History
diphenhydramine HCl 25 mg capsule 25 mg PO DAILY Allergies #0 caps 11/10/23 01/03/24 01/02/24 Rx
(Benadryl)
apixaban 5 mg tablet (Eliquis) 5 mg PO DAILY 01/03/24 01/03/24 01/02/24 History
fluoxetine 40 mg capsule 40 mg PO DAILY 01/03/24 01/03/24 01/02/24 History
furosemide 40 mg tablet 40 mg PO DAILY 01/03/24 01/03/24 01/02/24 History
trazodone 50 mg tablet 50 mg PO HSPRN PRN sleep 01/03/24 01/03/24 5 Days Ago History
~12/29/23
Review of Systems
-
Unable to Obtain full review of systems at this time due to: Other (Per HPI)
Vitals / Labs / Diagnostic Testing
Vital Signs
Temp Pulse Resp BP Pulse Ox
97.9 F 76 20 95/64 96
01/03/24 13:17 01/03/24 13:17 01/03/24 13:17 01/03/24 13:17 01/03/24 13:17
Lab Data
01/03/24 07:03
01/03/24 07:03
Laboratory Results
01/03/24 01/03/24 01/03/24
07:03 13:52 15:00
PT 16.8 H
INR 1.38
APTT 35.5 H 86.6 H Cancelled
Microbiology
01/03/24 09:14 Sputum Respiratory Culture - Final
01/03/24 09:14 Sputum Gram Stain - Final
Diagnostic Testing:
Physical Exam
-
Exam:
Well-nourished and well-developed in no apparent distress
HEENT-atraumatic, normocephalic
Neck-supple, no JVD, no bruit
Heart with systolic murmur
Chest with crackles at the bases, few rhonchi and forced wheezes
Back-no tenderness
Abdomen-soft, nontender, nondistended, no hepatosplenomegaly
Extremities-no cyanosis, clubbing, and some edema
Integument-intact, no rashes, lesions or ecchymosis
Neurology-alert and oriented, nonfocal motor and sensory exam
Assessment
-
73-year-old male with a history of CAD, CABG, AVR with multiple revisions, diabetes as well as asthma presents with shortness of breath and hemoptysis-pulmonary consulted for shortness of breath and hemoptysis 01/03/2024.
Shortness of breath
Bronchitis
Hemoptysis
Suspect mild CHF-reduced EF
Hemoptysis
Yyimzg-yiypsexryb-vsafciducm 11.5
Transaminitis
Conditions present prior to admission:
Recent hospitalization dosed on 11/29-chest pain in addition to anemia of chronic disease and chronic kidney disease
Hypertension.
Hyperlipidemia.
Atrial fibrillation/flutter on Eliquis.
Asthma.
CAD/CABG/LEONCIO to LAD 2017, stented mid LAD 12/2020
CHF reduced EF-37%
Diastolic dysfunction-stage II
Former smoker
Chronic renal failure
Chronic anemia of chronic disease
History CVA-left MCA 2020
Depression
Fatty liver
Cholelithiasis
Multiple cardiac surgeries
Aortic root homograft 1998/redo sternotomy with aortic root reconstruction/tissue AVR-2008.
TAVR with prosthetic mismatch 2018.
Redo sternotomy with tissue AVR due toTAVR prosthetic mismatch and stenosis-SVG to LAD 2020
Multiple cardiac stents
Permanent pacemaker
Plan
Respiratory decompensation likely due to a combination of CHF and underlying bronchitis the patient likely has underlying mild interstitial lung disease
Chest x-rays and CTs of the chest dating back to 2018 were reviewed in addition to pulmonary function test from 2019 suggesting mild interstitial lung disease in addition to mild to moderately reduced diffusing capacity
Supplemental oxygen as needed
High flow oxygen if needed
Begin nebulizers
Mucus clearing devices
Mucolytic's
Low threshold for steroid initiation if wheezing persists
Follow chest x-ray
Patient likely has underlying lung disease COPD/possible component of pulmonary fibrosis-CT chest dating back to 2019 showed basilar subpleural interstitial changes with small blebs-40 pack smoking history as well
Eventual repeat PFTs-2019 PFTs summarized below with mild to moderate reduction in diffusing capacity
Quantify hemoptysis
Sputum culture
Antibiotics to treat bronchitis-doxycycline initiated
Diuresis as tolerated
Monitor renal function, electrolytes, intake/output, lower extremity edema and weight
Replace electrolytes as needed
Cardiology evaluation pending
Monitor hemoglobin
Follow LFTs
DVT prophylaxis-on heparin
Nutrition
Early mobilization
Outpatient pulmonary follow-up with PFTs, 6-minute walk test, radiographic follow-up, yearly low-dose lung cancer screening CT, etc.
Reviewed with nursing and primary team
Diagnostic data:
Chest x-ray 05/26/2018-NAD
Chest x-ray 07/08/2022-no pneumothorax, mild cardiomegaly, no focal consolidations or effusion
Chest x-ray 07/22/2023-bilateral patchy pneumonia
Chest x-ray 01/03/2024-small left pleural effusion borderline interstitial edema
CT coronary angiogram 05/28/2018-mild dependent atelectasis, small peripheral blebs posterior medial aspects right lower lobe suggesting mild interstitial fibrosis, prosthetic aortic valve, fatty infiltration of the liver
CT coronary angiography 07/02/2018-mild dependent atelectasis, increased interstitial markings both inferior lungs likely mild interstitial fibrosis, status post transcatheter aortic valve replacement
CT coronary angiography 09/10/23-minimal reticular interstitial thickening at lung bases suggesting mild interstitial fibrosis and small paraseptal blebs seen bilaterally, severe coronary artery disease, cholelithiasis
Echocardiogram 11/24/2023-EF 37%, global hypokinesis with septal and apical akinesis, stage II diastolic dysfunction, status post bioprosthetic aortic valve, PA systolic 46
PFT 06/28/2018-FEV1 3.08-106%, FVC 4.05 502%, TLC 87%, RV 58%, DLCO 67%, DLCO/VA 69%
Data Reviewed
-
PFT: Report reviewed by me
EKG: Report reviewed by me
Radiology: Image personally visualized and interpreted and Report reviewed by me
CT Scan: Image personally visualized and interpreted and Report reviewed by me
Medical Tests (Nuc Med, Echo etc): Report reviewed by me
Labs: Labs reviewed by me
Old Records: Reviewed
Total Time Spent with Patient (in minutes): 65
[2024-01-03 14:33] LABS: Troponin I 0.124 ng/ml
[2024-01-03] MEDS: VIBRAMYCIN 100 MG PO ×2 (15:03→20:10)
[2024-01-03] MEDS: ProAIR HFA INHALER 2 PUFF INH (15:56)
[2024-01-03 16:49] LABS: Glucose - Point of Care 131 mg/dl (70-99)
[2024-01-03] MEDS: NOVOLOG FLEXPEN-LOW RESISTANCE SC (16:50)
[2024-01-03] MEDS: DUONEB 3 ML INH (19:57)
[2024-01-03] MEDS: PULMICORT 0.5 MG INH (19:57)
[2024-01-03 20:07] LABS: APTT 46.7 Sec (23.4-35.0)
[2024-01-03] MEDS: MUCINEX 600 MG PO (20:10)
--- NOTE | 2024-01-03 20:11 | CON.CAR ---
Consultation
Consultation Request
Date/Time Consultation Requested: 01/03/2024 0820
Date/Time Consultation Performed: 01/03/2024 0900
Requesting Provider: REMA Coulter
Performing Provider: Kerwin Billy DO
Reason for Consultation: CP, HF
Medical History
-
Chief Complaint: CP, HF
History of Present Illness:
Patient is a 73-year-old male with an extensive cardiac history including severe aortic stenosis with redo redo redo AVR and sternotomy x 2 with root replacement and reanastomosis of coronary arteries, extensive CAD, diabetes mellitus type 2,
asthma, atrial fibrillation, sick sinus syndrome status post pacemaker, hypertension, history of CVA, dyslipidemia with recent admission November 2023 due to chest tightness and shortness of breath. Patient presenting again due to chest discomfort and
shortness of breath. Patient reports progressive shortness of breath over the past 2-3 weeks. Additionally, he notes chest pain with exertion and relieved at rest. He notes that this has been present for quite some time. Due to this lower
extremity swelling, shortness of breath, and productive cough, patient proceeded to emergency department for evaluation. Initial presenting troponin was 0.13 downtrending from there to 0.118. Patient noted to be in heart failure with elevated BNP
>[id number] and evidence on imaging L pleural effusion with borderline interstitial edema. Due to concern for chest pain/NSTEMI in setting of heart failure, patient started on heparin drip and given IV Lasix. Patient admitted for further evaluation and
management. Patient reports that he is supposed to follow-up with Dr. Mcginnis who performed his prior cardiac surgery however patient states that he has not made an appointment with Dr. Mcginnis at [facility] despite instructions to do
so.Discussed with patient at bedside, patient reports that since admission, improvement in shortness of breath. Patient denies any chest pain at this time. Patient is resting comfortably in bed. Patient denies any lightheadedness, dizziness,
near-syncope, syncope, PND, orthopnea, palpitations or weakness
Past Medical History
Past Medical History: Other (see hpi)
Past Surgical History: Other (see hpi)
Social History
Tobacco: Former Smoker
Alcohol: Former
Drug: None and Marijuana
Living: With Family
Family History
Family History: CAD, Cancer and Hypertension
Allergies / Home Medications
Allergy/AdvReac Type Severity Reaction Status Date / Time
No Known Allergies Allergy Verified 11/09/23 12:40
�Medication �Instructions �Recorded �Confirmed �Type
furosemide 20 mg tablet 20 mg PO DAILY Fluid 07/03/20 01/03/24 History
retention/Swelling
fluoxetine 20 mg capsule 20 mg PO DAILY Depression 06/29/22 01/03/24 History
albuterol sulfate 90 mcg/actuation 2 puff inhalation R Q4HPRN PRN SOB 07/08/22 01/03/24 History
aerosol inhaler
insulin lispro 100 unit/mL 0 sliding scale dose SC 07/08/22 01/03/24 History
subcutaneous pen (Humalog KwikPen BID@1200,1700 Diabetes
(U-100) Insulin)
insulin lispro 100 unit/mL 10 unit SC DAILY Diabetes 07/08/22 01/03/24 History
subcutaneous pen (Humalog KwikPen
(U-100) Insulin)
aspirin 81 mg tablet,delayed 81 mg PO DAILY Blood Clot 07/22/23 01/03/24 History
release Prevention/Tx
atorvastatin 80 mg tablet 80 mg PO DAILY High Cholesterol 07/22/23 01/03/24 History
insulin glargine 100 unit/mL (3 15 unit SC HS Diabetes 07/22/23 01/03/24 History
mL) subcutaneous pen (Lantus
Solostar U-100 Insulin)
metoprolol succinate 25 mg 25 mg PO DAILY Blood Pressure 07/22/23 01/03/24 History
tablet,extended release 24 hr
sennosides 8.6 mg tablet (Senokot) 17.2 mg PO DAILY Constipation 07/22/23 01/03/24 History
diphenhydramine HCl 25 mg capsule 25 mg PO DAILY Allergies #0 caps 11/10/23 01/03/24 Rx
(Benadryl)
apixaban 5 mg tablet (Eliquis) 5 mg PO DAILY 01/03/24 01/03/24 History
fluoxetine 40 mg capsule 40 mg PO DAILY 01/03/24 01/03/24 History
furosemide 40 mg tablet 40 mg PO DAILY 01/03/24 01/03/24 History
trazodone 50 mg tablet 50 mg PO HSPRN PRN sleep 01/03/24 01/03/24 History
Review of Systems
-
History Source: Patient
All other systems: Negative unless noted
Constitutional: No Symptoms
EENT: No Symptoms
Respiratory: Trouble Breathing
Cardiac: Chest Pain
Abdomen/GI: No Symptoms and Other (abdominal distension)
: No Symptoms
Musculoskeletal: Edema (trace)
Skin: No Symptoms
Neurological: No Symptoms
Endocrine: No Symptoms
Hematologic/Lymphatic: No Symptoms
Physical Exam
Vital Signs
Temp Pulse Resp BP Pulse Ox
97.9 F 62 18 107/66 97
01/03/24 19:40 01/03/24 20:02 01/03/24 20:02 01/03/24 19:40 01/03/24 20:02
Lab Results
01/03/24 07:03
01/03/24 07:03
Troponin I 0.124 ng/ml H* 01/03/24 13:52
Bza-M-Lrydjznspsu Pept 68977 pg/ml 01/03/24 07:03
Physical Exam
General: Well Developed, Well Nourished, No Apparent Distress and Comfortable
HEENT: Normocephalic, Anicteric and Moist Mucous Membranes
Respiratory: Crackles (bibasilar), Rhonchi, Non Labored Respirations and Other (no wheeze)
Cardiac: S1/S2, Regular Rhythm, Peripheral Edema (trace), JVD (none) and Other (no murmur rub or gallop)
Breast: Deferred by me
GI: Soft, Non Tender and Distended (mild)
Rectal: Deferred by Provider
Musculoskeletal: No Clubbing and No Cyanosis
Skin: Warm and Dry
Neuro: Awake, Alert, Oriented and No Motor Deficits
Psych: Calm
Impression / Plan
-
PCP: Dr. Tammie Barrios
Cardiology: Dr. Brenner
CTS: Dr Mcginnis
.
Impression:
Acute on Chronic HFrEF; EF 37 11/2023
- BNP >35024
- Troponin 0.13 -> 0.118; EKG paced
- L pleural effusion, mild edema on CXR
Productive cough, multifactorial - HF with possible COPD exacerbation v infection
Aortic stenosis
s/p aortic root [facility] with Dr. Fuentes 1998
s/p redo sternotomy with aortic root reconstruction, tissue AVR and left main coronary reconstruction at [facility] 2008
s/p TAVR with prosthetic mismatch at 07/01/18
s/p redo sternotomy with tissue AVR due to TAVR prosthetic mismatch and stenosis, s/p SVG to LAD by Dr. Mcginnis at [facility] 01/07/21CAD
s/p LM coronary reconstruction at time of aortic root reconstruction and tiss AVR 2008
s/p 3 mm Promus LEONCIO to LAD 05/2018
[employer] RCA and new high-grade mid LAD stenosis beyond stented segment by cath 12/2020
LAD disease managed by SVG to LAD CABG at time of redo sternotomy and AVR at [facility] 01/07/21
NSTEMI 07/22/23 peak troponin 39.3 with occlusion of SVG to LAD for which medical management was recommendedInfluenza positive 07/22/23
Paroxysmal typical Aflutter, s/p CV Jan 2020
Chronic warfarin OAC
h/o CVA with left MCA infarct 01/11/21
previously taking Xarelto prior to redo sternotomy and tiss AVR at [facility] 01/07/21, then CVA 01/11/21 and seen by Neurosurgery at [facility] and they recommended warfarin
Hypertension
SSS with DC PPM (MDT 06/2022, LBBAP lead)
DM2
WHIT on CKD 3a
Depression
Former smoker
Former alcohol abuse
ECHO 12/06/2020: Function; EF 55 to 60%.� Moderate LVH.� Stage II diastolic dysfunction.� Normal RV size and function.� Mildly dilated RA.� Noted status post sapient #3 prosthetic valve with severe AAS.� Peak/mean gradients 113/66 mmHg. mild TR.� PAP
33 mmHg
Echo 07/17/23: EF 55-60%, stage I diastolic dysfunction, mod MR, well-seated bioprosthetic aortic valve replacement with restricted leaflet motion peak and mean gradients are 63 and 39 mmHg at least moderate bioprosthetic dysfunction, mild AR
Echo 07/23/2023: EF 48%, akinesis of the apical inferoseptal and anteroseptal wall, moderate MR, bioprosthetic aortic valve with peak/mean gradients 56/32 mmHg, mild to moderate TR, estimated PAP 35 to 40 mmHg
Echo 11/24/2023: EF 37%, Global hypokinesis with apical septal and apical akinesis, moderate LVH, grade 2 diastolic dysfunction, normal RV size and function, severely dilated LA, MAC, MR, aortic valve with mild AI peak/mean 52/28, PASP 46 mmHg
Catheterization 07/27/2023: HEMODYNAMICS (mmHg) :RA (m) : 10 RV (s/d) : 36/2; PA (s/d,m) : 36/60, 24; PCWP (m) : 21; AO (s/d, m) : 90/48, 65
LV (s/d) : 165/10; LVEDP (m) : 20
Estimated Codey Cardiac Output: 4.24 L/min and Cardiac Index: 2.2 L/min/M-2
Systemic vascular resistance: 13 Wood units = 1040 [id number]
Pulmonary vascular resistance: 0.71 Wood units = 57 [id number]
AORTIC VALVE:
Mean Gradient: 58 mmHg
Aortic Valve Area: 0.57 cm2
LEFT VENTRICULOGRAPHY: Left ventriculography was performed in an QUIGLYE projection.� The digital single-plane left ventricular ejection fraction is visually estimated at 40-45% with anterolateral apical and inferoapical hypokinesis noted
CONCLUSION
1.� Nonselective angiography with patent LM proximal LAD and proximal circumflex.
2.� Recurring bioprosthetic valve stenosis with very complex history of redo redo redo AVR and redo sternotomy x 2 including root replacement and re-anastomosis of coronary arteries.� The SVG-LAD is 100% occluded.
Recommendations:
- IV diuresis Lasix 40 mg twice daily, strict intake and output, daily weights
� Monitor renal function and electrolytes replete as needed
� Remains on heparin drip as this time, if troponin miesha flat and no change in clinical status, transition back to oral anticoagulation with Eliquis
� Patient with very complex coronary history and valvular history with multiple sternotomy and interventions. As previously recommended, strongly encourage patient to follow-up with Dr. Mcginnis for further discussion of possible intervention as
outpatient is applicable
� Supportive care per primary service appreciate input from pulmonology
dw nursing
Data Reviewed
-
EKG: Tracing Personally Visualized and interpreted
Radiology: Report Reviewed by me
Medical Tests (Nuc Med, Echo etc): Report Reviewed by me
Labs: Labs Reviewed by me
Old Records: Reviewed
Total Time Spent with Patient (in minutes): 55
[2024-01-03 20:21] LABS: Troponin I 0.118 ng/ml
[2024-01-03 21:20] LABS: Glucose - Point of Care 137 mg/dl (70-99)
[2024-01-03] MEDS: DESYREL 50 MG PO (21:23)
[2024-01-03] MEDS: LANTUS 0.15 UNITS SC (21:23)
[2024-01-04] VITALS (7 sets, daily range): BP systolic 88–122; BP diastolic 55–76; BMI 27.4
[2024-01-04 03:31] LABS: APTT 69.1 Sec (23.4-35.0)
[2024-01-04 03:38] LABS: Hemoglobin 11.9 g/dL (13.0-18.0); Mean Corpuscular Hgb 30.7 pg (27.0-31.0); Mean Corpuscular Volume 90.2 fL (80.0-94.0); Mean Platelet Volume 11.8 fL (7.4-10.4); Platelet Count 164 10^3/uL (130-400); Red Blood Cell Count 3.88 10^6/uL (4.70-6.10); Red Cell Dist. Width 15.8 % (11.5-14.5)
[2024-01-04 04:04] LABS: Blood Urea Nitrogen 46 mg/dl (9-20); Calcium 9.2 mg/dl (8.4-10.2); Carbon Dioxide 24 mmol/L (22-30); Chloride 106 mmol/L (98-107); Estimated Creatinine Clearance 45 ml/min; Glucose 116 mg/dl (70-99); Potassium 3.8 mmol/L (3.5-5.1); Sodium 139 mmol/L (135-145); eGFR 52.74
[2024-01-04 07:11] LABS: Glucose - Point of Care 127 mg/dl (70-99)
[2024-01-04] MEDS: PULMICORT 0.5 MG INH ×2 (07:14→19:20)
[2024-01-04] MEDS: DUONEB 3 ML INH ×4 (07:14→19:20)
[2024-01-04] MEDS: NOVOLOG FLEXPEN-LOW RESISTANCE SC ×3 (07:52→17:04)
[2024-01-04] MEDS: TRICOR 145 MG PO (07:57)
[2024-01-04] MEDS: VIBRAMYCIN 100 MG PO ×2 (07:57→20:13)
[2024-01-04] MEDS: PROZAC 60 MG PO (07:57)
[2024-01-04] MEDS: BENADRYL 25 MG PO (07:58)
[2024-01-04] MEDS: MUCINEX 600 MG PO ×2 (07:58→20:13)
[2024-01-04] MEDS: LIPITOR 80 MG PO (07:58)
[2024-01-04] MEDS: SENOKOT 17.2 MG PO (07:58)
[2024-01-04] MEDS: ASPIR LOW (ENTERIC COATED) 81 MG PO (07:58)
[2024-01-04] MEDS: TOPROL XL 25 MG PO (07:58)
[2024-01-04] MEDS: LASIX 40 MG IV (07:59)
[2024-01-04] MEDS: ELIQUIS 5 MG PO ×2 (08:13→20:13)
--- NOTE | 2024-01-04 08:36 | W.PN.HOSP.TC ---
Today's Communication/Plan
-
IV lasix. Abx
Assessment / Plan
Assessment / Plan
Physical exam:
General: Well Developed, Well Nourished and No Apparent Distress
HEENT: Normocephalic, Atraumatic and Moist Mucous Membranes
Respiratory: Clear to Auscultation; Negative Wheezes, Rales or Rhonchi
Cardiac: Regular Rhythm and S1/S2
GI: Soft, Nontender and Nondistended
Musculoskeletal: No Clubbing, No Cyanosis and No Edema
Neuro: Awake, Alert and Oriented
Psych: Calm
A/P:
Acute on chronic systolic and diastolic CHF:
Continue IV diuresis and might consider transition to oral in next 24 hrs
Continue GDMT
Appreciated cardiology input
Hemoptysis due to bronchitis in the setting of heart failure and Eliquis use:
Continue oral antibiotics for 5 days
Appreciated pulm input
Mucolytics and antitussives
Quantify hemoptysis
Aortic stenosis:
s/p aortic root homograft at [facility] with Dr. Fuentes 1998/redo sternotomy with aortic root reconstruction, tissue AVR and left main coronary reconstruction at [facility] 2008/TAVR with prosthetic mismatch at 07/01/18/ redo
sternotomy with tissue AVR due to TAVR prosthetic mismatch and stenosis, s/p SVG to LAD by Dr. Mcginnis at [facility] 01/07/21CAD/LM coronary reconstruction at time of aortic root reconstruction and tiss AVR 2008.
Recommended to f/u with Dr Mcginnis as OP regarding redo AVR
A fib/ A flutter:
on B-dell
on anticoagulation
cardiac monitoring
CAD/elevated troponin due to non SD troponin:
stable
S/P redo sternotomy with tissue AVR due to TAVR prosthetic mismatch and stenosis, s/p SVG to LAD by Dr. Mcginnis at [facility] 01/07/21 CAD
S/P LM coronary reconstruction at time of aortic root reconstruction and tiss AVR 2008
S/P 3 mm Promus LEONCIO to LAD 05/2018
S/P [employer] RCA and new high-grade mid LAD stenosis beyond stented segment by cath 12/2020
LAD disease managed by SVG to LAD CABG at time of redo sternotomy and AVR at [facility] 01/07/21
NSTEMI 07/22/23 peak troponin 39.3 with occlusion of SVG to LAD for which medical management was recommended in the setting of Influenza positive 07/22/23
Rest of medical problems include:
Hypertension
Diabetes mellitus type 2
CVA
PPM-SSS with DC PPM (MDT 06/2022, LBBAP lead)
Depression
CKD
L pleural effusion
Total time spent on today's encounter was 52 minutes which included time spent in counseling the patient/family regarding diagnosis and treatment plan as listed above, goals of care, and symptom management. Case was discussed with nursing staff,
specialists, and care coordinators/case management. All labs and imaging personally reviewed by me. Remainder the time spent in detailed review of previous records, lab data, imaging, and other medical provider documentation.
Anticipated Discharge: 24 - 48 hours
Subjective/Interval History
-
Date of Service: January 04, 2024
patient less hemoptysis, less peripheral edema. overall feels better. No cp. No fever
Objective Data
-
Labs:
Laboratory Results
01/04/24 01/04/24
03:07 09:00
WBC 8.0
Hgb 11.9 L
Hct 35.0 L
Plt Count 164
APTT 69.1 H Pending
Sodium 139
Potassium 3.8
Chloride 106
Carbon Dioxide 24
BUN 46 H
Creatinine 1.4 H
Glucose 116 H
Calcium 9.2
Vital Signs:
Vital Signs
Temp Pulse Resp BP Pulse Ox
98.2 F 70 16 109/64 95
01/04/24 07:35 01/04/24 07:59 01/04/24 07:43 01/04/24 07:59 01/04/24 07:43
I&O
01/03/24 01/04/24 01/05/24
06:59 06:59 06:59
Intake Total 840 / 840
Output Total 1325 / 1325
Balance -485 / -485
[2024-01-04 09:49] LABS: APTT 42.4 Sec (23.4-35.0)
--- NOTE | 2024-01-04 09:50 | W.PN.CARDCBS ---
Addendum entered and electronically signed by Jose Alfredo Banda DO 01/04/24 12:47:
I saw and evaluated the patient. I reviewed the resident�s note and agree with findings and plan as documented in the resident�s note.
Plan:
Multifactorial dysnpea.
Continue IV lasix and transition to oral lasix next 24 hrs.
Wt appears at dry wt.
Likely resume outpt lasix dose next 24 hrs.
Transition to Eliquis and stopped IV heparin. Elevated trop likely nonMI troponin. Cont med therapy
Remains A-paced
Dyspnea likely multifactorial appreciate pulm input. Element of underlying bronchitis with likely mild interstitial lung disease.
Outpt follow up with Dr Brenner
Outpt follow up with Dr Mcginnis regarding hx of redo AVR
Original Note:
Today's Communication / Plan
-
Continue Eliquis
Continue IV Lasix, monitor I&Os, daily weights
Impression / Plan
-
PCP: Dr. Tammie Barrios
Cardiology: Dr. Brenner
CTS: Dr Mcginnis
.
Impression:
Acute on Chronic HFrEF; EF 37 11/2023
- BNP >34329
- Troponin 0.13 -> 0.118; EKG paced
- L pleural effusion, mild edema on CXR
Productive cough, multifactorial - HF with possible COPD exacerbation v infection
Aortic stenosis
s/p aortic root homograft at [facility] with Dr. Fuentes 1998
s/p redo sternotomy with aortic root reconstruction, tissue AVR and left main coronary reconstruction at [facility] 2008
s/p TAVR with prosthetic mismatch at 07/01/18
s/p redo sternotomy with tissue AVR due to TAVR prosthetic mismatch and stenosis, s/p SVG to LAD by Dr. Mcginnis at [place] 01/07/21CAD
s/p LM coronary reconstruction at time of aortic root reconstruction and tiss AVR 2008
s/p 3 mm Promus LEONCIO to LAD 05/2018
[employer] RCA and new high-grade mid LAD stenosis beyond stented segment by cath 12/2020
LAD disease managed by SVG to LAD CABG at time of redo sternotomy and AVR at [place] 01/07/21
NSTEMI 07/22/23 peak troponin 39.3 with occlusion of SVG to LAD for which medical management was recommendedInfluenza positive 07/22/23
Paroxysmal typical Aflutter, s/p CV Jan 2020
Chronic warfarin OAC
h/o CVA with left MCA infarct 01/11/21
previously taking Xarelto prior to redo sternotomy and tiss AVR at [place] 01/07/21, then CVA 01/11/21 and seen by Neurosurgery at [place] and they recommended warfarin
Hypertension
SSS with DC PPM (MDT 06/2022, LBBAP lead)
DM2
WHIT on CKD 3a
Depression
Former smoker
Former alcohol abuse
ECHO 12/06/2020: Function; EF 55 to 60%.� Moderate LVH.� Stage II diastolic dysfunction.� Normal RV size and function.� Mildly dilated RA.� Noted status post sapient #3 prosthetic valve with severe AAS.� Peak/mean gradients 113/66 mmHg. mild TR.� PAP
33 mmHg
Echo 07/17/23: EF 55-60%, stage I diastolic dysfunction, mod MR, well-seated bioprosthetic aortic valve replacement with restricted leaflet motion peak and mean gradients are 63 and 39 mmHg at least moderate bioprosthetic dysfunction, mild AR
Echo 07/23/2023: EF 48%, akinesis of the apical inferoseptal and anteroseptal wall, moderate MR, bioprosthetic aortic valve with peak/mean gradients 56/32 mmHg, mild to moderate TR, estimated PAP 35 to 40 mmHg
Echo 11/24/2023: EF 37%, Global hypokinesis with apical septal and apical akinesis, moderate LVH, grade 2 diastolic dysfunction, normal RV size and function, severely dilated LA, MAC, MR, aortic valve with mild AI peak/mean 52/28, PASP 46 mmHg
Catheterization 07/27/2023: HEMODYNAMICS (mmHg) :RA (m) : 10 RV (s/d) : 36/2; PA (s/d,m) : 36/60, 24; PCWP (m) : 21; AO (s/d, m) : 90/48, 65
LV (s/d) : 165/10; LVEDP (m) : 20
Estimated Codey Cardiac Output: 4.24 L/min and Cardiac Index: 2.2 L/min/M-2
Systemic vascular resistance: 13 Wood units = 1040 [id number]
Pulmonary vascular resistance: 0.71 Wood units = 57 [id number]
AORTIC VALVE:
Mean Gradient: 58 mmHg
Aortic Valve Area: 0.57 cm2
LEFT VENTRICULOGRAPHY: Left ventriculography was performed in an QUIGLEY projection.� The digital single-plane left ventricular ejection fraction is visually estimated at 40-45% with anterolateral apical and inferoapical hypokinesis noted
CONCLUSION
1.� Nonselective angiography with patent LM proximal LAD and proximal circumflex.
2.� Recurring bioprosthetic valve stenosis with very complex history of redo redo redo AVR and redo sternotomy x 2 including root replacement and re-anastomosis of coronary arteries.� The SVG-LAD is 100% occluded.
Recommendations:
- Transitioned to back to [facility], trops downtrended (01/02: 0.131-->0.118), does not appear to be volume overloaded.
- Continue IV diuresis Lasix 40 mg twice daily, strict intake and output, daily weights (decreased estimated dry weight from 83.4 to 81.6kg), transition to home oral Lasix dose 40mg PO in 24 hours.
� Monitor renal function and electrolytes replete as needed
� Patient had follow-up appointment with Dr. Mcginnis for further discussion of possible intervention as outpatient two months ago.
� Supportive care per primary service appreciate input from pulmonology
Progress Note - Personal Lines Agent
Subjective
Date of Service: January 04, 2024
Objective
Labs:
01/04/24 03:07
01/04/24 03:07
Labs
Hgb 11.9 g/dL (13.0-18.0) L 01/04/24 03:07
Hct 35.0 % (39.0-52.0) L 01/04/24 03:07
Plt Count 164 10^3/uL (130-400) 01/04/24 03:07
PT 16.8 Sec (11.4-14.6) H 01/03/24 07:03
INR 1.38 01/03/24 07:03
APTT 69.1 Sec (23.4-35.0) H 01/04/24 03:07
Sodium 139 mmol/L (135-145) 01/04/24 03:07
Potassium 3.8 mmol/L (3.5-5.1) 01/04/24 03:07
BUN 46 mg/dl (9-20) H 01/04/24 03:07
Creatinine 1.4 mg/dL (0.7-1.3) H 01/04/24 03:07
Glucose 116 mg/dl (70-99) H 01/04/24 03:07
Troponins
01/03/24 01/03/24 01/03/24
07:03 13:52 19:48
Troponin I 0.131 H* 0.124 H* 0.118 H*
Vital Signs and I&O:
Vital Signs
Temp Pulse Resp BP Pulse Ox
98.2 F 70 16 109/64 95
01/04/24 07:35 01/04/24 07:59 01/04/24 07:43 01/04/24 07:59 01/04/24 07:43
Vital Signs
Temp Pulse Resp BP Pulse Ox
98.2 F 70 16 109/64 95
01/04/24 07:35 01/04/24 07:59 01/04/24 07:43 01/04/24 07:59 01/04/24 07:43
Intake & Output
01/02/24 01/03/24 01/04/24 01/05/24
06:59 06:59 06:59 06:59
Intake Total 840 / 840
Output Total 1325 / 1325
Balance -485 / -485
Physical Exam
Physical Exam
GEN: NAD. Awake, alert, oriented x3
HEENT: EOMI, MMM
LUNGS: Few scattered rhonchi.
CV: S1/S2, regular, no murmur
ABD: +BS, ND, NT, soft
EXT: No clubbing, cyanosis, lesions or edema B/L
NEURO: Gross non-focal
SKIN: Warm, dry and pink. No rash
[2024-01-04 11:46] LABS: Glucose - Point of Care 117 mg/dl (70-99)
--- NOTE | 2024-01-04 12:06 | W.PN.PUL3 ---
Today's Communication / Plan
-
Continue DuoNebs
Continue Pulmicort
Continue antibiotics orally for 5 days
IV diuretics
Antitussives.
Follow sputum culture
Mucolytic's
Assessment
-
73-year-old male with a history of CAD, CABG, AVR with multiple revisions, diabetes as well as asthma presents with shortness of breath and hemoptysis-pulmonary consulted for shortness of breath and hemoptysis 01/03/2024.
Shortness of breath
Bronchitis
Hemoptysis
Suspect mild CHF-reduced EF
Hemoptysis
Wlhubf-gdjtjjzezj-suxhsnkdrn 11.5
Transaminitis
Conditions present prior to admission:
Recent hospitalization dosed on 11/29-chest pain in addition to anemia of chronic disease and chronic kidney disease
Hypertension.
Hyperlipidemia.
Atrial fibrillation/flutter on Eliquis.
Asthma.
CAD/CABG/LEONCIO to LAD 2017, stented mid LAD 12/2020
CHF reduced EF-37%
Diastolic dysfunction-stage II
Former smoker
Chronic renal failure
Chronic anemia of chronic disease
History CVA-left MCA 2020
Depression
Fatty liver
Cholelithiasis
Multiple cardiac surgeries
Aortic root homograft 1998/redo sternotomy with aortic root reconstruction/tissue AVR-2008.
TAVR with prosthetic mismatch 2018.
Redo sternotomy with tissue AVR due toTAVR prosthetic mismatch and stenosis-SVG to LAD 2020
Multiple cardiac stents
Permanent pacemaker
Plan
Respiratory decompensation likely due to a combination of CHF and underlying bronchitis the patient likely has underlying mild interstitial lung disease
Chest x-rays and CTs of the chest dating back to 2018 were reviewed in addition to pulmonary function test from 2019 suggesting mild interstitial lung disease in addition to mild to moderately reduced diffusing capacity
-
Currently on room air. Not bronchospastic on exam.
Continue nebulizer therapy.Pulmicort twice a day/albuterol-ipratropium 4 times a day.
Mucus clearing devices
Mucolytic's anti to see if.
Antitussives.
Hold on systemic corticosteroids for now.
Chest x-ray this admission: Small left pleural effusion. Borderline pulmonary interstitial edema.
Spirometry performed 01/04/2024. Will review.
-
Patient likely has underlying lung disease possible component of pulmonary fibrosis-CT chest dating back to 2019 showed basilar subpleural interstitial changes with small blebs-40 pack smoking history as well
Eventual repeat PFTs-2019 PFTs summarized below with mild to moderate reduction in diffusing capacity.
Recommend outpatient pulmonary follow-up after discharge for further evaluation.
Quantify hemoptysis-minimal old blood this morning. No active hemoptysis. Likely bronchitis in the setting of anticoagulation.
Sputum culture-results pending.
Antibiotics to treat bronchitis-doxycycline initiated complete total of 5 days.
Acute on chronic heart failure with reduced ejection fraction.
IV diuresis ongoing.
On full anticoagulation.
Monitor renal function, electrolytes, intake/output, lower extremity edema and weight
Replace electrolytes as needed-results pending.
Cardiology following, correspondence reviewed.
DVT prophylaxis-heparin discontinued, on full anticoagulation. Eliquis
Outpatient pulmonary follow-up with PFTs, 6-minute walk test, radiographic follow-up, yearly low-dose lung cancer screening CT, etc.
Will continue to follow.
Diagnostic data:
Chest x-ray 05/26/2018-NAD
Chest x-ray 07/08/2022-no pneumothorax, mild cardiomegaly, no focal consolidations or effusion
Chest x-ray 07/22/2023-bilateral patchy pneumonia
Chest x-ray 01/03/2024-small left pleural effusion borderline interstitial edema
CT coronary angiogram 05/28/2018-mild dependent atelectasis, small peripheral blebs posterior medial aspects right lower lobe suggesting mild interstitial fibrosis, prosthetic aortic valve, fatty infiltration of the liver
CT coronary angiography 07/02/2018-mild dependent atelectasis, increased interstitial markings both inferior lungs likely mild interstitial fibrosis, status post transcatheter aortic valve replacement
CT coronary angiography 09/10/23-minimal reticular interstitial thickening at lung bases suggesting mild interstitial fibrosis and small paraseptal blebs seen bilaterally, severe coronary artery disease, cholelithiasis
Echocardiogram 11/24/2023-EF 37%, global hypokinesis with septal and apical akinesis, stage II diastolic dysfunction, status post bioprosthetic aortic valve, PA systolic 46
PFT 06/28/2018-FEV1 3.08-106%, FVC 4.05 502%, TLC 87%, RV 58%, DLCO 67%, DLCO/VA 69%
Subjective Data
-
Date of Service:
Date of Service: January 04, 2024
Chief Complaint: Pulmonary Follow Up (Hemoptysis/shortness of breath)
Subjective:
No further episode of significant hemoptysis
Continues to have coughing
Review of Systems
Cardiopulmonary: Dyspnea and Cough
Objective Data
Data Reviewed
Vital Signs / I&O / Oxygen:
Vital Signs
Temp Pulse Resp BP Pulse Ox
98.2 F 64 22 103/56 98
01/04/24 11:41 01/04/24 11:41 01/04/24 11:41 01/04/24 11:41 01/04/24 11:41
Intake and Output
01/03/24 01/04/24 01/05/24
06:59 06:59 06:59
Intake Total 840 / 840
Output Total 1325 / 1325
Balance -485 / -485
SaO2 98
Physical Exam
General: Comfortable
HEENT: Normocephalic
Cardiovascular: S1-S2
Respiratory: Wheeze (n) and Crackles (Bibasilar)
GI: Soft and Non Distended
Neurology: Awake, Alert, Oriented and No Motor Deficits
Skin: Warm
Labs/Micro/Reports
Lab Data
01/04/24 03:07
01/04/24 03:07
Laboratory Results
01/03/24 01/03/24 01/03/24
13:52 15:00 19:48
APTT 86.6 H Cancelled 46.7 H
01/04/24 01/04/24
03:07 09:17
APTT 69.1 H 42.4 H
Microbiology
01/03/24 09:14 Sputum Respiratory Culture - Final
01/03/24 09:14 Sputum Gram Stain - Final
--- NOTE | 2024-01-04 12:12 | CM ---
Patient seen bedside, initial assessment completed. Patient resides with his , daughter, and three grandchildren (patient has custody of two oldest grandchildren). Patient lives in ranch style home, 6-7 steps to enter. Patient denies use of DME,
[facility] in past, denies SNF. Patient PCP Dr. Cr, pharmacy [facility]. Patient confirms prescription coverage. Patient denies any needs to CM at this time. CM will continue to follow for all discharge planning needs.
Plan; home no needs likely.
[2024-01-04 16:45] LABS: Glucose - Point of Care 121 mg/dl (70-99)
[2024-01-04] MEDS: LASIX IV (17:01)
[2024-01-04 21:48] LABS: Glucose - Point of Care 135 mg/dl (70-99)
[2024-01-04] MEDS: LANTUS 0.15 UNITS SC (21:51)
[2024-01-04] MEDS: DESYREL 50 MG PO (21:51)
[2024-01-05 03:40] VITALS: BP 102/56
--- NOTE | 2024-01-05 04:05 | PTCARENOTE ---
~0015: Pt's automatic BP was 88/57, HR 62. BP checked manually by this RN is 90/58. Pt is asymptomatic at this time. [employer]er notified, will continue to monitor for now and recheck in a few hours.
0400: Pt's BP is now 102/56, HR 62. [employer] notified, no new orders at this time.
[2024-01-05 06:00] VITALS: BMI 27.1
[2024-01-05 07:00] VITALS: BP 101/65
[2024-01-05] MEDS: PULMICORT 0.5 MG INH (07:10)
[2024-01-05] MEDS: DUONEB 3 ML INH ×2 (07:10→11:17)
[2024-01-05 07:24] LABS: Hematocrit 37.3 % (39.0-52.0); Hemoglobin 12.3 g/dL (13.0-18.0); Mean Corpuscular Hgb 30.5 pg (27.0-31.0); Mean Corpuscular Volume 92.6 fL (80.0-94.0); Mean Platelet Volume 11.8 fL (7.4-10.4); Platelet Count 169 10^3/uL (130-400); Red Blood Cell Count 4.03 10^6/uL (4.70-6.10); Red Cell Dist. Width 15.6 % (11.5-14.5); White Blood Cell Count 7.8 10^3/uL (4.8-10.8)
[2024-01-05] MEDS: LASIX 40 MG IV (07:44)
[2024-01-05] MEDS: TRICOR 145 MG PO (07:45)
[2024-01-05] MEDS: SENOKOT 17.2 MG PO (07:45)
[2024-01-05] MEDS: MUCINEX 600 MG PO (07:45)
[2024-01-05] MEDS: TOPROL XL 25 MG PO (07:45)
[2024-01-05] MEDS: ELIQUIS 5 MG PO (07:45)
[2024-01-05] MEDS: BENADRYL 25 MG PO (07:45)
[2024-01-05] MEDS: VIBRAMYCIN 100 MG PO (07:45)
[2024-01-05] MEDS: LIPITOR 80 MG PO (07:45)
[2024-01-05] MEDS: ASPIR LOW (ENTERIC COATED) 81 MG PO (07:46)
[2024-01-05] MEDS: PROZAC 60 MG PO (07:46)
[2024-01-05] MEDS: NOVOLOG FLEXPEN-LOW RESISTANCE SC (07:48)
[2024-01-05 07:54] LABS: Blood Urea Nitrogen 40 mg/dl (9-20); Calcium 9.3 mg/dl (8.4-10.2); Carbon Dioxide 25 mmol/L (22-30); Chloride 106 mmol/L (98-107); Estimated Creatinine Clearance 48 ml/min; Glucose 125 mg/dl (70-99); Potassium 4.1 mmol/L (3.5-5.1); Sodium 139 mmol/L (135-145); eGFR 57.65
[2024-01-05 07:59] LABS: Glucose - Point of Care 131 mg/dl (70-99)
--- NOTE | 2024-01-05 08:33 | W.PN.CARDCBS ---
Addendum entered and electronically signed by Jose Alfredo Banda DO 01/05/24 17:19:
I saw and examined the patient 10:30 AM.
The Computing Architect note was reviewed and I agree with the note.
Comment:
Plan:
He appears to be euvolemic. Transition to Lasix 60 mg daily.
Continue to monitor daily weights and call with weight gain.
Outpatient follow-up with Dr. Mcginnis regarding his history of AVR.
Discussed with primary service.
Outpatient follow-up arranged.
Original Note:
Today's Communication / Plan
-
Transitioned to oral home dose Lasix
Continue Eliquis
Impression / Plan
-
PCP: Dr. Tammie Barrios
Cardiology: Dr. Brenner
CTS: Dr Mcginnis
.
Impression:
Acute on Chronic HFrEF; EF 37 11/2023
- BNP >73766
- Troponin 0.13 -> 0.118; EKG paced
- L pleural effusion, mild edema on CXR
Productive cough, multifactorial - HF with possible COPD exacerbation v infection
Aortic stenosis
s/p aortic root homograft at [facility] with Dr. Fuentes 1998
s/p redo sternotomy with aortic root reconstruction, tissue AVR and left main coronary reconstruction at [facility] 2008
s/p TAVR with prosthetic mismatch at 07/01/18
s/p redo sternotomy with tissue AVR due to TAVR prosthetic mismatch and stenosis, s/p SVG to LAD by Dr. Mcginnis at [place] 01/07/21CAD
s/p LM coronary reconstruction at time of aortic root reconstruction and tiss AVR 2008
s/p 3 mm Promus LEONCIO to LAD 05/2018
[employer] RCA and new high-grade mid LAD stenosis beyond stented segment by cath 12/2020
LAD disease managed by SVG to LAD CABG at time of redo sternotomy and AVR at [place] 01/07/21
NSTEMI 07/22/23 peak troponin 39.3 with occlusion of SVG to LAD for which medical management was recommendedInfluenza positive 07/22/23
Paroxysmal typical Aflutter, s/p CV Jan 2020
Chronic warfarin OAC
h/o CVA with left MCA infarct 01/11/21
previously taking Xarelto prior to redo sternotomy and tiss AVR at [place] 01/07/21, then CVA 01/11/21 and seen by Neurosurgery at [place] and they recommended warfarin
Hypertension
SSS with DC PPM (MDT 06/2022, LBBAP lead)
DM2
WHIT on CKD 3a
Depression
Former smoker
Former alcohol abuse
ECHO 12/06/2020: Function; EF 55 to 60%.� Moderate LVH.� Stage II diastolic dysfunction.� Normal RV size and function.� Mildly dilated RA.� Noted status post sapient #3 prosthetic valve with severe AAS.� Peak/mean gradients 113/66 mmHg. mild TR.� PAP
33 mmHg
Echo 07/17/23: EF 55-60%, stage I diastolic dysfunction, mod MR, well-seated bioprosthetic aortic valve replacement with restricted leaflet motion peak and mean gradients are 63 and 39 mmHg at least moderate bioprosthetic dysfunction, mild AR
Echo 07/23/2023: EF 48%, akinesis of the apical inferoseptal and anteroseptal wall, moderate MR, bioprosthetic aortic valve with peak/mean gradients 56/32 mmHg, mild to moderate TR, estimated PAP 35 to 40 mmHg
Echo 11/24/2023: EF 37%, Global hypokinesis with apical septal and apical akinesis, moderate LVH, grade 2 diastolic dysfunction, normal RV size and function, severely dilated LA, MAC, MR, aortic valve with mild AI peak/mean 52/28, PASP 46 mmHg
Catheterization 07/27/2023: HEMODYNAMICS (mmHg) :RA (m) : 10 RV (s/d) : 36/2; PA (s/d,m) : 36/60, 24; PCWP (m) : 21; AO (s/d, m) : 90/48, 65
LV (s/d) : 165/10; LVEDP (m) : 20
Estimated Codey Cardiac Output: 4.24 L/min and Cardiac Index: 2.2 L/min/M-2
Systemic vascular resistance: 13 Wood units = 1040 [id number]
Pulmonary vascular resistance: 0.71 Wood units = 57 [id number]
AORTIC VALVE:
Mean Gradient: 58 mmHg
Aortic Valve Area: 0.57 cm2
LEFT VENTRICULOGRAPHY: Left ventriculography was performed in an QUIGLEY projection.� The digital single-plane left ventricular ejection fraction is visually estimated at 40-45% with anterolateral apical and inferoapical hypokinesis noted
CONCLUSION
1.� Nonselective angiography with patent LM proximal LAD and proximal circumflex.
2.� Recurring bioprosthetic valve stenosis with very complex history of redo redo redo AVR and redo sternotomy x 2 including root replacement and re-anastomosis of coronary arteries.� The SVG-LAD is 100% occluded.
Recommendations:
- Continue Eliquis, trops downtrended (most likely non-ischemic elevated trop), does not appear to be volume overloaded today.
- Transitioned to home oral Lasix dose 40mg PO in AM and 20mg in PM, strict intake and output, daily weights (decreased estimated dry weight from adm 83.4 to 80.8kg today)
� Monitor renal function and electrolytes replete as needed
� Recommended to follow up with ; patient states he had follow-up appointment with him outpatient two months ago.
� Supportive care per primary service appreciate input from pulmonology- no active hemoptysis, most likely because of bronchitis in setting of anticoagulation, on doxy for 5 day course
Progress Note - Product Marketing Consultant
Subjective
Date of Service: January 05, 2024
Objective
Labs:
01/05/24 07:04
01/05/24 07:04
Labs
Hgb 12.3 g/dL (13.0-18.0) L 01/05/24 07:04
Hct 37.3 % (39.0-52.0) L 01/05/24 07:04
Plt Count 169 10^3/uL (130-400) 01/05/24 07:04
PT 16.8 Sec (11.4-14.6) H 01/03/24 07:03
INR 1.38 01/03/24 07:03
APTT 42.4 Sec (23.4-35.0) H 01/04/24 09:17
Sodium 139 mmol/L (135-145) 01/05/24 07:04
Potassium 4.1 mmol/L (3.5-5.1) 01/05/24 07:04
BUN 40 mg/dl (9-20) H 01/05/24 07:04
Creatinine 1.3 mg/dL (0.7-1.3) 01/05/24 07:04
Glucose 125 mg/dl (70-99) H 01/05/24 07:04
Troponins
01/03/24 01/03/24 01/03/24
07:03 13:52 19:48
Troponin I 0.131 H* 0.124 H* 0.118 H*
Vital Signs and I&O:
Vital Signs
Temp Pulse Resp BP Pulse Ox
98.1 F 83 16 102/56 96
01/05/24 03:40 01/05/24 07:14 01/05/24 07:14 01/05/24 03:40 01/05/24 07:14
Vital Signs
Temp Pulse Resp BP Pulse Ox
98.1 F 83 16 102/56 96
01/05/24 03:40 01/05/24 07:14 01/05/24 07:14 01/05/24 03:40 01/05/24 07:14
Intake & Output
01/03/24 01/04/24 01/05/24 01/06/24
06:59 06:59 06:59 06:59
Intake Total 840 / 840 1750 / 1750
Output Total 1325 / 1325 100 / 100
Balance -485 / -485 1649 / 1649
Physical Exam
Physical Exam
GEN: NAD. Awake, alert, oriented x3
HEENT: EOMI, MMM
LUNGS: Few scattered rhonchi.
CV: S1/S2, regular, no murmur
ABD: +BS, ND, NT, soft
EXT: No clubbing, cyanosis, lesions or edema B/L
NEURO: Gross non-focal
SKIN: Warm, dry and pink. No rash
--- NOTE | 2024-01-05 09:06 | W.PN.HOSP.TC ---
Addendum entered and electronically signed by Deangelo Valladares MD 01/05/24 14:39:
Non ischemic myocardial injury
Original Note:
Today's Communication/Plan
-
Discharge planning
Assessment / Plan
Assessment / Plan
Physical exam:
General: Well Developed, Well Nourished and No Apparent Distress
HEENT: Normocephalic, Atraumatic and Moist Mucous Membranes
Respiratory: Clear to Auscultation; Negative Wheezes, Rales or Rhonchi
Cardiac: Regular Rhythm and S1/S2
GI: Soft, Nontender and Nondistended
Musculoskeletal: No Clubbing, No Cyanosis and No Edema
Neuro: Awake, Alert and Oriented
Psych: Calm
A/P:
Acute on chronic systolic and diastolic CHF:
Continue IV diuresis and might consider transition to oral in next 24 hrs
Continue GDMT
Appreciated cardiology input
Cardiology and pulmonary cleared him for discharge today
Hemoptysis due to bronchitis in the setting of heart failure and Eliquis use:
Continue oral antibiotics for 5 days
Appreciated pulm input
Mucolytics and antitussives
Quantify hemoptysis
Aortic stenosis:
s/p aortic root homograft at [facility] with Dr. Fuentes 1998/redo sternotomy with aortic root reconstruction, tissue AVR and left main coronary reconstruction at [facility] 2008/TAVR with prosthetic mismatch at 07/01/18/ redo
sternotomy with tissue AVR due to TAVR prosthetic mismatch and stenosis, s/p SVG to LAD by Dr. Mcginnis at [place] 01/07/21CAD/LM coronary reconstruction at time of aortic root reconstruction and tiss AVR 2008.
Recommended to f/u with Dr Mcginnis as OP regarding redo AVR
A fib/ A flutter:
on B-dell
on anticoagulation
cardiac monitoring
CAD/elevated troponin due to non GA troponin:
stable
S/P redo sternotomy with tissue AVR due to TAVR prosthetic mismatch and stenosis, s/p SVG to LAD by Dr. Mcginnis at [place] 01/07/21 CAD
S/P LM coronary reconstruction at time of aortic root reconstruction and tiss AVR 2008
S/P 3 mm Promus LEONCIO to LAD 05/2018
S/P [employer] RCA and new high-grade mid LAD stenosis beyond stented segment by cath 12/2020
LAD disease managed by SVG to LAD CABG at time of redo sternotomy and AVR at [place] 01/07/21
NSTEMI 07/22/23 peak troponin 39.3 with occlusion of SVG to LAD for which medical management was recommended in the setting of Influenza positive 07/22/23
Rest of medical problems include:
Hypertension
Diabetes mellitus type 2
CVA
PPM-SSS with DC PPM (MDT 06/2022, LBBAP lead)
Depression
CKD
L pleural effusion
Anticipated Discharge: Today
Subjective/Interval History
-
Date of Service: January 05, 2024
Patient doing well. No chest pain or shortness of breath
Objective Data
-
Labs:
Laboratory Results
01/05/24
07:04
WBC 7.8
Hgb 12.3 L
Hct 37.3 L
Plt Count 169
Sodium 139
Potassium 4.1
Chloride 106
Carbon Dioxide 25
BUN 40 H
Creatinine 1.3
Glucose 125 H
Calcium 9.3
Vital Signs:
Vital Signs
Temp Pulse Resp BP Pulse Ox
97.8 F 83 16 101/65 96
01/05/24 07:00 01/05/24 07:14 01/05/24 07:14 01/05/24 07:00 01/05/24 07:14
I&O
01/04/24 01/05/24 01/06/24
06:59 06:59 06:59
Intake Total 840 / 840 1750 / 1750
Output Total 1325 / 1325 100 / 100
Balance -485 / -485 1650 / 1650
--- NOTE | 2024-01-05 10:32 | W.PN.PUL3 ---
Today's Communication / Plan
-
Continue nebulizer therapy while in the hospital
Restart albuterol HFA upon discharge
Complete 5 days of antibiotics
Diuresis per primary team
Okay to discharge from my perspective
Outpatient pulmonary follow-up
Sign off
Assessment
-
73-year-old male with a history of CAD, CABG, AVR with multiple revisions, diabetes as well as asthma presents with shortness of breath and hemoptysis-pulmonary consulted for shortness of breath and hemoptysis 01/03/2024.
Shortness of breath
Bronchitis
Hemoptysis
Suspect mild CHF-reduced EF
Hemoptysis
Gcinxk-hglkvaiyvg-idfiazqqhz 11.5
Transaminitis
Conditions present prior to admission:
Recent hospitalization dosed on 11/29-chest pain in addition to anemia of chronic disease and chronic kidney disease
Hypertension.
Hyperlipidemia.
Atrial fibrillation/flutter on Eliquis.
Asthma.
CAD/CABG/LEONCIO to LAD 2017, stented mid LAD 12/2020
CHF reduced EF-37%
Diastolic dysfunction-stage II
Former smoker
Chronic renal failure
Chronic anemia of chronic disease
History CVA-left MCA 2020
Depression
Fatty liver
Cholelithiasis
Multiple cardiac surgeries
Aortic root homograft 1998/redo sternotomy with aortic root reconstruction/tissue AVR-2008.
TAVR with prosthetic mismatch 2018.
Redo sternotomy with tissue AVR due toTAVR prosthetic mismatch and stenosis-SVG to LAD 2020
Multiple cardiac stents
Permanent pacemaker
Plan
Respiratory decompensation likely due to a combination of CHF and underlying bronchitis the patient likely has underlying mild interstitial lung disease
Chest x-rays and CTs of the chest dating back to 2018 were reviewed in addition to pulmonary function test from 2019 suggesting mild interstitial lung disease in addition to mild to moderately reduced diffusing capacity
-
From the respiratory status improved.
Currently on room air.
Not bronchospastic on exam.
Continue nebulizer therapy.Pulmicort twice a day/albuterol-ipratropium 4 times a day.(While in the hospital) upon discharge may restart albuterol HFA as needed.
Mucus clearing devices
Mucolytic's anti to see if.
Antitussives.
Hold on systemic corticosteroids for now.
Chest x-ray this admission: Small left pleural effusion. Borderline pulmonary interstitial edema.
Spirometry performed 01/04/2024-reviewed, suggestion of restriction. No airflow obstruction.
-
Patient likely has underlying lung disease possible component of pulmonary fibrosis-CT chest dating back to 2019 showed basilar subpleural interstitial changes with small blebs-40 pack smoking history as well
Eventual repeat PFTs-2019 PFTs summarized below with mild to moderate reduction in diffusing capacity.
Recommend outpatient pulmonary follow-up after discharge for further evaluation.
Quantify hemoptysis- Likely bronchitis in the setting of anticoagulation.
Minimal hemoptysis improved day by day, only scant.
Okay to continue with anticoagulation
Sputum culture-for sample/over contaminated with oropharyngeal jersey.
Antibiotics to treat bronchitis-doxycycline initiated complete total of 5 days.
Acute on chronic heart failure with reduced ejection fraction.
Continue diuresis per primary team and cardiology.
On full anticoagulation.
Monitor renal function, electrolytes, intake/output, lower extremity edema and weight
Replace electrolytes as needed-results pending.
Cardiology following, correspondence reviewed.
DVT prophylaxis-heparin discontinued, on full anticoagulation. Eliquis
Outpatient pulmonary follow-up with PFTs, 6-minute walk test, radiographic follow-up, yearly low-dose lung cancer screening CT, etc.
From the pulmonary perspective okay to discharge. Outpatient pulmonary follow-up.
Information left in the chart.

Diagnostic data:
Chest x-ray 05/26/2018-NAD
Chest x-ray 07/08/2022-no pneumothorax, mild cardiomegaly, no focal consolidations or effusion
Chest x-ray 07/22/2023-bilateral patchy pneumonia
Chest x-ray 01/03/2024-small left pleural effusion borderline interstitial edema
CT coronary angiogram 05/28/2018-mild dependent atelectasis, small peripheral blebs posterior medial aspects right lower lobe suggesting mild interstitial fibrosis, prosthetic aortic valve, fatty infiltration of the liver
CT coronary angiography 07/02/2018-mild dependent atelectasis, increased interstitial markings both inferior lungs likely mild interstitial fibrosis, status post transcatheter aortic valve replacement
CT coronary angiography 09/10/23-minimal reticular interstitial thickening at lung bases suggesting mild interstitial fibrosis and small paraseptal blebs seen bilaterally, severe coronary artery disease, cholelithiasis
Echocardiogram 11/24/2023-EF 37%, global hypokinesis with septal and apical akinesis, stage II diastolic dysfunction, status post bioprosthetic aortic valve, PA systolic 46
PFT 06/28/2018-FEV1 3.08-106%, FVC 4.05 502%, TLC 87%, RV 58%, DLCO 67%, DLCO/VA 69%
Subjective Data
-
Date of Service:
Date of Service: January 05, 2024
Chief Complaint: Pulmonary Follow Up (Hemoptysis/shortness of breath)
Subjective:
Clinically improved
No worsening hemoptysis
Shortness of breath improved
Review of Systems
General: Fever (n)
Cardiopulmonary: Dyspnea (improved), Cough (improved), Sputum Production (improved) and Hemoptysis (minimal-improved)
GI: Abdominal Pain (n) and Nausea (n)
Objective Data
Data Reviewed
Vital Signs / I&O / Oxygen:
Vital Signs
Temp Pulse Resp BP Pulse Ox
97.8 F 83 16 101/65 96
01/05/24 07:00 01/05/24 07:14 01/05/24 07:14 01/05/24 07:00 01/05/24 07:14
Intake and Output
01/04/24 01/05/24 01/06/24
06:59 06:59 06:59
Intake Total 840 / 840 1750 / 1750
Output Total 1325 / 1325 100 / 100
Balance -485 / -485 1650 / 1650
SaO2 96
Physical Exam
General: Comfortable
HEENT: Normocephalic
Cardiovascular: S1-S2
Respiratory: Wheeze (n) and Crackles (Bibasilar)
GI: Soft and Non Distended
Neurology: Awake, Alert, Oriented, AO x 3 and No Motor Deficits
Skin: Warm
Labs/Micro/Reports
Lab Data
01/05/24 07:04
01/05/24 07:04
Microbiology
01/04/24 11:24 Sputum Respiratory Culture - Final
01/04/24 11:24 Sputum Gram Stain - Final
01/03/24 09:14 Sputum Respiratory Culture - Final
01/03/24 09:14 Sputum Gram Stain - Final
[2024-01-05 11:07] LABS: Glucose - Point of Care 179 mg/dl (70-99)
[2024-01-05] MEDS: NOVOLOG FLEXPEN-LOW RESISTANCE 1 UNITS SC (11:27)
--- NOTE | 2024-01-05 11:36 | W.DCSUMMARY ---
Discharge Summary
Discharge Data
Date of Admission: 01/03/24
Date of Discharge: 01/05/24
-
Pending Results: No
Hospital Course
Patient is 73 years old male with complex and extensive cardiac history including CAD, redo of aortic stenosis at least a couple times, diabetes mellitus, A-fib, hypertension, CVA among other, presented to the hospital with chest pain and shortness
of breath and found to be in heart failure exacerbation. Patient was diuresed aggressively with IV Lasix. He had negative balance and he is symptomatically improved substantially. Cardiology switched his diuretics to oral and cleared him for
discharge today. Also upon presentation patient had some mild hemoptysis and this was felt to be related to acute bronchitis in the setting of anticoagulant use and pulmonary was consulted. Pulmonary placed him on a short course of oral
antibiotics and he is improving. Of note, patient has been able to tolerate his anticoagulant and his hemoptysis has improved and his hemoglobin remained stable. Otherwise, patient feels back to his baseline and is able to ambulate without any
problems and he will follow-up with his manager solar and thoracic surgeon as outpatient for further discussions about future plans. Cardiology and pulmonary cleared him for discharge today.
Discharge duration: 35 minutes
Discharge Plan
-
Patient Disposition: Home (Routine Discharge)
Discharge Diagnosis/Procedures: Acute on chronic systolic diastolic congestive heart failure. Acute bronchitis.
Diet: Low Cholesterol and 2 Gram Sodium
Activity: As tolerated
Blood Work: Please PCP to order CBC, BMP within 1 week
Specialty Instructions: Weigh Daily- Call MD for wt gain/loss 3 lbs overnight/5 lbs in 1 week
Instructions: *[facility] Heart Failure Instructions
Referrals:
Asim Cr, [Family Provider] - in less than 1 week
Karyn Montgomery PA-C [Specified Professional Personl] - 01/07/24 12:40 pm (You have a cardiology follow-up appointment at the [facility] office. Please call with questions)
Francois Heard MD [Active] - in two to four weeks
(Dr. Heard or nurse practitioner
PFTs, 6-minute walk test, screen for yearly low-dose lung cancer screening CT)
Prescriptions:
New
doxycycline hyclate 100 mg Capsule
100 mg PO Q12 3 Days Qty: 6 0RF
Continued
furosemide 20 MG tablet
20 mg PO DAILY
Rx Instructions:
take with 40mg cap for total of 60mg
fluoxetine 20 mg capsule
20 mg PO DAILY
Rx Instructions:
take with 40mg cap for total of 60mg
insulin lispro [Humalog KwikPen Insulin] 100 unit/mL Insulin Pen
0 sliding scale dose SC BID@1200,1700
insulin lispro [Humalog KwikPen Insulin] 100 unit/mL Insulin Pen
10 unit SC DAILY
albuterol sulfate 90 mcg/actuation Hfa Aerosol Inhaler
2 puff INHALATION R Q4HPRN PRN (Reason: SOB)
atorvastatin 80 mg Tablet
80 mg PO DAILY
sennosides [Senokot] 8.6 mg Tablet
17.2 mg PO DAILY
aspirin 81 mg Tablet,Delayed Release (Dr/Ec)
81 mg PO DAILY
metoprolol succinate 25 mg Tablet Extended Release 24 Hr
25 mg PO DAILY
insulin glargine [Lantus Solostar U-100 Insulin] 100 unit/mL (3 mL) Insulin Pen
15 unit SC HS
diphenhydramine HCl [Benadryl] 25 mg Capsule
25 mg PO DAILY Qty: 0 0RF
Eliquis 5 mg Tablet
5 mg PO DAILY
Patient Comments:
01/03/24: confirmed with patient that he takes 1 in the morning, instead of twice a day.
trazodone 50 mg Tablet
50 mg PO HSPRN PRN (Reason: sleep)
fluoxetine 40 mg Capsule
40 mg PO DAILY
Rx Instructions:
take with 20mg cap for total of 60mg
furosemide 40 mg Tablet
40 mg PO DAILY
Rx Instructions:
take with 20mg cap for total of 60mg
Discharge Orders:
Discharge Patient (As Directed); Ordered 01/05/24
Ordered By: Deangelo Valladares
Discharge Date and Time
Discharge Date/Time: 01/05/24 14:08
Print Language: KHMER
[2024-01-05 12:14] VITALS: BP 106/55
--- NOTE | 2024-01-05 12:16 | CM ---
Patient seen bedside, discussed plan for discharge today. IMM reviewed, signed, placed in chart. Patients to provide transportation home. CM will continue to follow for all discharge planning needs.
Plan; home no needs.
--- NOTE | 2024-01-05 13:45 | PN.CDI ---
CDI
- -
CDI:
Physician Documentation Request
Admit Date: 01/03/24 12:02
Dear Doctor Blaine,
Clinical Indicators:
Patient admitted with Acute on chronic systolic and diastolic CHF.
01/04 PN, 'CAD/elevated troponin due to non [place] troponin:
01/04 Cardiology PN, 'trops downtrended (most likely non-ischemic elevated trop)'
Troponin trend:
01/03/24 01/03/24 01/03/24
07:03 13:52 19:48
Troponin I 0.131 H* 0.124 H* 0.118 H*
Based on the above, could you clarify in the progress notes, the appropriate diagnosis, if significant, that supports the abnormal troponin levels:
Non ischemic myocardial injury
Elevated troponin only
Other, please specify
Use of terms such as suspected, likely, concern for, or probable (associated with a specific diagnosis that is being evaluated, monitored, or treated as if it exists) are acceptable and can be coded in the inpatient setting, when documented at the
time of discharge.
Thank you,
Wilma Esposito RN BSN
CDI Specialist
available via tiger text
Please use your independent medical judgment in providing your response.
== END 2024-01-05 14:08 | disposition home or self-care (01) | DRG 291 ==
LOC: 4 WEST ACU 12:02
PROVIDERS: Emergency Medicine; Physician Assistant; ADMITTING PHYSICIAN Internal Medicine; ATTENDING PHYSICIAN Hospitalist; CONSULT PHYSICIAN Internal Medicine Cardiovascular Disease; CONSULT PHYSICIAN Internal Medicine Critical Care Medicine; EMERGENCY PHYSICIAN Emergency Medicine; FAMILY PHYSICIAN Student in an Organized Health Care Education/Training Program
DX: I13.0 Hypertensive heart and chronic kidney disease with heart failure and stage 1 through stage 4 chronic kidney disease, or unspecified chronic kidney disease (principal); I50.43 Acute on chronic combined systolic (congestive) and diastolic (congestive) heart failure; N17.9 Acute kidney failure, unspecified; J84.9 Interstitial pulmonary disease, unspecified; I48.3 Typical atrial flutter; J44.0 Chronic obstructive pulmonary disease with (acute) lower respiratory infection; J44.1 Chronic obstructive pulmonary disease with (acute) exacerbation; R04.2 Hemoptysis; J20.9 Acute bronchitis, unspecified; N18.31 Chronic kidney disease, stage 3a; E11.22 Type 2 diabetes mellitus with diabetic chronic kidney disease; E78.00 Pure hypercholesterolemia, unspecified; I08.0 Rheumatic disorders of both mitral and aortic valves; I49.5 Sick sinus syndrome; D63.1 Anemia in chronic kidney disease; R74.01 Elevation of levels of liver transaminase levels; I48.0 Paroxysmal atrial fibrillation; F32.A Depression, unspecified; K76.0 Fatty (change of) liver, not elsewhere classified; I5A Non-ischemic myocardial injury (non-traumatic); I25.10 Atherosclerotic heart disease of native coronary artery without angina pectoris; I25.2 Old myocardial infarction; I25.82 Chronic total occlusion of coronary artery; Z95.1 Presence of aortocoronary bypass graft; Z95.5 Presence of coronary angioplasty implant and graft; Z95.3 Presence of xenogenic heart valve; Z95.0 Presence of cardiac pacemaker; Z91.128 Patient's intentional underdosing of medication regimen for other reason; Z87.891 Personal history of nicotine dependence; Z86.73 Personal history of transient ischemic attack (TIA), and cerebral infarction without residual deficits; Z79.899 Other long term (current) drug therapy; Z79.01 Long term (current) use of anticoagulants; Z79.82 Long term (current) use of aspirin; Z79.4 Long term (current) use of insulin
CPT/HCPCS: 71046; 80048; 80053; 82962; 83036; 83880; 84484; 85025; 85027; 85610; 85730; 87205; 93005; 94060; 94640; 96374; 96375; 99285